=== PATIENT | male | born 1935 | race Caucasian/White ===

== ENCOUNTER → 2020-06-27 15:21 | Outpatient (BNVA) | payer MEDICARE, SELFPAY | PROVIDERS: PCP Internal Medicine; Visit Provider Urology | DX: C61 Malignant neoplasm of prostate (principal); Z79.899 Other long term (current) drug therapy | CPT/HCPCS: 96402; 99212; J9217 ==

== ENCOUNTER 2020-07-09 13:48 | Outpatient (REF) | payer MEDICARE, SELFPAY ==
--- NOTE | 2020-07-09 | XR_ITS ---
EXAMINATION: XR CHEST CLINICAL INFORMATION: Bronchitis. COMPARISON: Chest 11/10/2019 TECHNIQUE: 2 views of the chest were obtained. FINDINGS: The lungs are hyperinflated but clear of acute process. Heart size and pulmonary study is normal. There are pacer electrodes in right atrium and right ventricle. No gross bony abnormality seen. XR/XR chest 2V IMPRESSION: Hyperinflated lungs but clear. No change from 12/19/2019
[2020-07-09 16:20] LABS: MANUAL DIFF FLAG NO
[2020-07-09 16:23] LABS: Basophils Absolute Auto 0.1 X10*3/uL (0.0-0.2); Basophils Percent Auto 0.5 % (0-2); Eosinophils Absolute Auto 0.6 X10*3/uL (0.0-0.4); Eosinophils Percent Auto 5.2 % (0-4); Hematocrit 41.2 % (42-52); Hemoglobin 13.6 g/dl (14.0-18.0); Imm Gran Abs Auto 0.03 X10*3/uL (0.00-0.03); Imm Gran Pct Auto 0.3 % (0.0-0.4); Lymphocytes Absolute Auto 4.3 X10*3/uL (1.2-4.9); Lymphocytes Percent Auto 39.8 % (20-40); Mean Corpuscular Hemoglobin 30.5 pg (27.0-33.0); Mean Corpuscular Volume 92.4 fL (80-98); Mean Platelet Volume 9.4 fL (9.4-12.4); Monocytes Absolute Auto 0.9 X10*3/uL (0.1-1.2); Monocytes Percent Auto 8.2 % (2-11); Platelet Count 278 X10*3/uL (160-400); Red Blood Count 4.46 X10*6/uL (4.60-5.80); Red Cell Distribution Width 13.1 % (11.0-16.0); White Blood Count 10.8 X10*3/uL (4.8-10.8)
[2020-07-09 16:50] LABS: Alanine Aminotransferase 20 U/L (0-40); Albumin Level 3.9 g/dL (3.5-5.0); Alkaline Phosphatase 74 U/L (39-117); Anion Gap 10 (12-20); Aspartate Amino Transferase 21 U/L (5-37); Bilirubin Total 0.6 mg/dL (0.0-1.0); Blood Urea Nitrogen 27 mg/dL (9-16); C Reactive Protein 0.66 mg/dL (< or = 0.50); Carbon Dioxide 36 mmol/L (22-29); Chloride 99 mmol/L (96-108); Estimated Glomerular Filt Rate 60; Glucose Random 99 mg/dL (60-115); Potassium 3.9 mmol/l (3.3-5.1); Sodium 141 mmol/L (135-145); Total Protein 6.8 g/dL (6.5-8.0)
== END 2020-07-09 13:49 | disposition home or self-care (01) ==
LOC: HO.HMGCLDS 13:48
PROVIDERS: PCP Internal Medicine; Visit Provider Internal Medicine
DX: J40 Bronchitis, not specified as acute or chronic (principal)
CPT/HCPCS: 36415; 71046; 80053; 85025; 86140

== ENCOUNTER 2020-08-01 11:06 | Outpatient (REF) | payer MEDICARE, SELFPAY ==
--- NOTE | 2020-08-01 11:59 | XR_ITS ---
EXAMINATION: XR CHEST CLINICAL INFORMATION: Cough COMPARISON: July 09, 2020 and November 10, 2019 TECHNIQUE: 2 views of the chest were obtained. FINDINGS: No significant abnormality is noted involving the heart, lungs, mediastinum, bony thorax or soft tissues. Dual-chamber pacemaker in place. Minor atelectasis or scarring seen at both lung bases. XR/XR chest 2V IMPRESSION: No acute disease.
== END 2020-08-01 11:07 | disposition home or self-care (01) ==
LOC: HO.XRAY 11:06
PROVIDERS: PCP Internal Medicine; Visit Provider Internal Medicine
DX: J44.9 Chronic obstructive pulmonary disease, unspecified (principal); R05 Cough
CPT/HCPCS: 71046; 99202

== ENCOUNTER 2020-08-16 13:51 | Outpatient (REF) | payer MEDICARE, SELFPAY ==
--- NOTE | 2020-10-08 14:39 | PFT_ITS ---
This patient could only perform some effort for the spirometry. The patient was not able to continue any efforts to complete for lung volumes or diffusion capacity. The findings of spirometry indicate that FVC, FEV1, [id number] are all markedly decreased. These findings suggest severe obstructive airway disorder. Bronchodilator challenge was not carried out because the patient did not want to continue with the test. MD KAELA Weber/MAI / [phone]
== END 2020-08-16 13:52 | disposition home or self-care (01) ==
LOC: HO.RESP 13:51
PROVIDERS: Visit Provider Internal Medicine
DX: J44.9 Chronic obstructive pulmonary disease, unspecified (principal); R05 Cough
CPT/HCPCS: 99212

== ENCOUNTER → 2020-09-26 13:31 | Outpatient (BNVA) | payer MEDICARE, SELFPAY | PROVIDERS: PCP Internal Medicine; Visit Provider Internal Medicine | DX: J44.9 Chronic obstructive pulmonary disease, unspecified (principal) | CPT/HCPCS: 99212 ==

== ENCOUNTER → 2020-12-25 13:25 | Outpatient (BNVA) | payer MEDICARE, SELFPAY | PROVIDERS: PCP Internal Medicine; Visit Provider Urology | DX: C61 Malignant neoplasm of prostate (principal) | CPT/HCPCS: 96402; 99212; J9217 ==

== ENCOUNTER → 2021-01-23 13:34 | Outpatient (BNVA) | payer MEDICARE, SELFPAY | PROVIDERS: PCP Internal Medicine; Visit Provider Internal Medicine | DX: J44.9 Chronic obstructive pulmonary disease, unspecified (principal); R05 Cough | CPT/HCPCS: 99212 ==

== ENCOUNTER 2021-06-06 10:31 | Outpatient (REF) | payer MEDICARE, SELFPAY ==
--- NOTE | ~2021-06-06 | FL_ITS ---
EXAMINATION: FL BARIUM SWALLOW CLINICAL INFORMATION: Dysphagia COMPARISON: None TECHNIQUE: Fluoroscopic assessment of the esophagus was performed in various upright and prone obliquities utilizing thin and thick high density barium contrast material and effervescent granules. A 13 mm barium tablet was also utilized. FINDINGS: There is normal oral bolus control and transfer. Normal posterior tilt of the epiglottis with elevation of the hyoid. No cricopharyngeal abnormality. There is mild residue within the parapharyngeal sinuses noted. The esophagus was normal in course, caliber, and contour. There was normal distensibility with no fixed segment of narrowing. No focal mucosal abnormality was identified. The 13 mm barium tablet was swallowed without delay. This freely travel to the distal esophagus with mild delay in passage into the stomach. Moderate esophageal dysmotility was observed. There was delayed clearing of the esophagus, particularly with the patient lying down. Contrast passed freely across the gastroesophageal junction into the stomach. Small sliding hiatal hernia. No gastroesophageal reflux was observed. FLUOROSCOPY TIME: 2 minutes DOSE AREA PRODUCT: 7.392 Gy-cm2 (stoner-centimeter squared) FL/FL barium swallow IMPRESSION: Moderate esophageal dysmotility. Small sliding hiatal hernia.
== END 2021-06-06 10:32 | disposition home or self-care (01) ==
LOC: HO.XRAY 10:31
PROVIDERS: Visit Provider Internal Medicine
DX: R13.19 Other dysphagia (principal)
CPT/HCPCS: 74220

== ENCOUNTER 2021-06-07 09:44 | Emergency (ER) | payer MEDICARE, SELFPAY ==
--- NOTE | ~2021-06-07 | CT_ITS ---
EXAMINATION: CT ANGIOGRAM OF THE CHEST WITH AND WITHOUT CONTRAST (CT PULMONARY ANGIOGRAM FOR PE) CLINICAL INFORMATION: Reason for Exam Pleuritic CP. History of prostate CA COMPARISON: None TECHNIQUE: Prior to contrast administration, noncontrast localization images were obtained. Subsequently, multidetector volumetric imaging was performed from the thoracic inlet to below the diaphragms following the administration of 80 mL Omnipaque 350 intravenous contrast. No contrast reaction reported Sagittal, coronal, and MIP oblique sagittal reformatted images were obtained on the CT workstation, uploaded to PACS, and reviewed. This CT examination was performed using dose optimization techniques as appropriate, variously including the following: *Automated exposure control *Adjustment of mA and/or kV according to patient size (this includes techniques or standardized protocols for targeted exams where dose is matched to indication/reason for exam; i.e. extremities or head) *Use of iterative reconstruction technique Total exam dose-length product 323 mGy-cm FINDINGS: QUALITY OF STUDY/CONTRAST BOLUS: Satisfactory. PULMONARY ARTERIES: No central or segmental pulmonary emboli. THORACIC AORTA: No aneurysm or dissection. LUNG: Centrilobular emphysema seen. There is reticular nodular changes in the right lower lobe, right middle lobe and right upper lobe. The largest nodule in the right lower lobe measures 5 mm axial image 40/64. Minimal reticular interstitial thickening is seen in the lingula subpleural reticular thickening left lower lobe. There is patchy groundglass attenuation right lower lobe measuring measuring 1.7 cm on axial image 29/4 and 1.6 cm right lower lobe medially axial image 243/6, question atelectasis or pleural thickening.. There is mild bronchial wall thickening in bilateral upper lobes greater on the right side, lower lobes with mucous secretions in the right trachea axial image 192/6. PLEURA: No pleural effusion or pneumothorax. MEDIASTINUM: Central trachea and the bronchi widely patent. The heart size and the great vessels are normal caliber. No abnormal size mediastinal or hilar lymph nodes seen. There is no pericardial effusion. There are coronary artery calcifications present. No pericardial effusion seen. No evidence of septal bowing or right heart strain. There is a small hiatal hernia. CHEST WALL/AXILLA: No axillary or internal mammary lymphadenopathy. OSSEOUS STRUCTURES: No lytic or sclerotic process seen. There is mild ventral spondylosis. UPPER ABDOMEN: Visualized liver, spleen and pancreas unremarkable. The adrenal glands are symmetrical and normal. There are bilateral renal cysts. The gallbladder has been removed. No reflux of contrast into the hepatic veins to suggest elevated right heart pressures. CT/CT angio chest PE protocol IMPRESSION: No evidence of PE. No evidence aortic dissection. Peribronchial wall thickening, reticular nodular changes throughout both lungs and right lower lobe groundglass attenuation suggestive of small airway disease such as bronchitis or asthma. There is no pneumonic consolidation or pleural effusion seen. No abnormal mediastinal or hilar adenopathy seen. Coronary artery calcifications. VTE: Negative.
--- NOTE | ~2021-06-07 | XR_ITS ---
EXAMINATION: XR CHEST CLINICAL INFORMATION: Chest pain, cough. COMPARISON: Chest 08/01/2020 TECHNIQUE: Frontal view of the chest was obtained. FINDINGS: The lungs are well-expanded and clear of acute process. Heart size and pulmonary vascularity is normal. There are pacer electrodes in right atrium and right ventricle. No gross bony abnormality seen. XR/XR chest 1V IMPRESSION: Well-expanded lungs without acute pneumonic process.
[2021-06-07 09:52] VITALS: BP 145/89; PULSE 84; O2SAT 95
[2021-06-07 09:54] VITALS: BP 142/62; PULSE 65; RESP 19; TEMP 36.6; O2SAT 94; BMI 27.1
--- NOTE | 2021-06-07 09:56 | ECG_ITS ---
Test Reason : cp Blood Pressure : / mmHG Vent. Rate : 060 BPM Atrial Rate : 060 BPM P-R Int : 000 ms QRS Dur : 140 ms QT Int : 450 ms P-R-T Axes : 036 -66 -39 degrees QTc Int : 450 ms Ventricular-paced rhythm with frequent AV dual-paced complexes Abnormal ECG When compared with ECG of 10-NOV-2019 19:03, Premature ventricular complexes are no longer Present Vent. rate has decreased BY 3 BPM Referred By: Tanja Rodriguez Electronically Signed By:Hamlet Boone
[2021-06-07 10:19] LABS: MANUAL DIFF FLAG NO
[2021-06-07 10:22] LABS: Basophils Percent Auto 0.3 % (0-2); Eosinophils Absolute Auto 0.4 X10*3/uL (0.0-0.4); Hematocrit 38.2 % (42.0-52.0); Hemoglobin 12.8 g/dl (14.0-18.0); Imm Gran Abs Auto 0.02 X10*3/uL (0.00-0.03); Imm Gran Pct Auto 0.2 % (0.0-0.4); Lymphocytes Absolute Auto 3.4 X10*3/uL (1.2-4.9); Lymphocytes Percent Auto 36.4 % (20-40); Mean Corpuscular HGB Conc 33.5 g/dl (31.0-36.0); Mean Corpuscular Hemoglobin 30.1 pg (27.0-33.0); Mean Corpuscular Volume 89.9 fL (80.0-98.0); Mean Platelet Volume 8.9 fL (9.4-12.4); Monocytes Absolute Auto 0.8 X10*3/uL (0.1-1.2); Monocytes Percent Auto 8.2 % (2-11); Neutrophils Absolute Auto 4.7 x10*3/uL (2.0-8.3); Neutrophils Percent Auto 50.9 % (45-73); Platelet Count 208 X10*3/uL (160-400); Red Blood Count 4.25 X10*6/uL (4.60-5.80); Red Cell Distribution Width 13.2 % (11.0-16.0); White Blood Count 9.2 X10*3/uL (4.8-10.8)
[2021-06-07 10:40] LABS: Alanine Aminotransferase 26 U/L (0-40); Albumin Level 3.9 g/dL (3.5-5.0); Alkaline Phosphatase 68 U/L (39-117); Anion Gap 12 (12-20); Aspartate Amino Transferase 22 U/L (5-37); Bilirubin Direct 0.2 mg/dL (0.0-0.5); Bilirubin Total 0.5 mg/dL (0.0-1.0); Blood Urea Nitrogen 42 mg/dL (9-16); Calcium 9.4 mg/dL (8.4-10.2); Carbon Dioxide 28 mmol/L (22-29); Chloride 104 mmol/L (96-108); Creatinine Clr Calc Pharmacy 36.9; Estimated Glomerular Filt Rate 52; Glucose Random 143 mg/dL (60-115); Magnesium 2.1 mg/dL (1.6-2.6); Potassium 3.6 mmol/L (3.3-5.1); Sodium 140 mmol/L (135-145); Total Protein 6.7 g/dL (6.5-8.0)
--- NOTE | 2021-06-07 10:40 | ED_ITS ---
HPI - Chest Pain General Chief Complaint: Chest Pain <TOMER Soto - Last Filed: 06/07/21 14:54> Stated Complaint: CP <TOMER Soto - Last Filed: 06/07/21 14:54> Time Seen by Provider: 06/07/21 09:50 <TOMER Soto - Last Filed: 06/07/21 14:54> Source: patient and EMS <TOMER Soto - Last Filed: 06/07/21 14:54> Mode of arrival: EMS <TOMER Soto - Last Filed: 06/07/21 14:54> History of Present Illness HPI narrative: 85-year-old male with a past medical history of COPD, hypertension, hyperlipidemia, prostate CA, presenting to the ED c/o left-sided chest pain beginning this morning after waking worse with coughing & deep breathing. Denies fever, chills, SOB, abdominal pain, nausea/vomiting, pedal edema, recent travel <TOMER Soto - Last Filed: 06/07/21 14:54> MD complaint: chest pain <TOMER Soto - Last Filed: 06/07/21 14:54> Onset (ago): hour(s) <TOMER Soto Last Filed: 06/07/21 14:54> Related Data Home Medications: Home Medications Medication Instructions Recorded Confirmed fluoxetine 20 mg capsule 20 mg PO DAILY 06/27/20 06/28/20 metoprolol tartrate 25 mg tablet 25 mg PO BID 06/27/20 06/28/20 aspirin 81 mg tablet,delayed 81 mg PO DAILY 08/16/20 release betamethasone dipropionate 0.05 % appl TOPICAL BID 09/26/20 topical cream atorvastatin 40 mg tablet 40 mg PO DAILY tab 01/23/21 Previous Rx's Medication Instructions Recorded fluticasone furoate 200 1 inh INHALATION DAILY 30 Days #60 08/16/20 mcg-vilanterol 25 mcg/dose ea inhalation powder (Breo Ellipta) <TOMER Soto Last Filed: 06/07/21 14:54> Allergies/Adverse Reactions: Allergies Allergy/AdvReac Type Severity Reaction Status Date / Time No Known Drug Allergies Allergy Unknown NONE Verified 01/23/21 13:43 [NO KNOWN DRUG ALLERGIES] <TOMER Soto Last Filed: 06/07/21 14:54> Review of Systems Review of Systems: Constitutional: No Fever, No Chills,No Fatigue, No Malaise ENT/Mouth: No Ear Pain, No Nasal Congestion, No sore throat, No Rhinorrhea, No Swallowing Difficulty Eyes: No Eye Pain, No Discharge, No Vision Changes Cardiovascular: + Chest Pain, No SOB, No Edema, No Palpitations Respiratory: No Cough, No Sputum, No Dyspnea Gastrointestinal: No Nausea, No Vomiting, No Diarrhea, No Constipation, No Abdominal pain Genitourinary: No Dysuria, No Urinary Frequency, No Hematuria,No Flank Pain Musculoskeletal: No joint pain, No Myalgias, No Joint Swelling Skin: No Skin Lesions, No rash Neuro: No Weakness, No Dizziness, No Headache <TOMER Soto - Last Filed: 06/07/21 14:54> Yes all other systems are reviewed and are negative <TOMER Soto - Last Filed: 06/07/21 14:54> [facility] Past Medical History Attestation statement: The following information was validated with the patient. <TOMER Soto - Last Filed: 06/07/21 14:54> Medical History: Medical History COPD (chronic obstructive pulmonary disease) Cough Eczema Gallstones HTN (hypertension) Hyperlipidemia Kidney cysts Kidney stones Nocturia Prostate cancer Prostate cancer <TOMER Soto - Last Filed: 06/07/21 14:54> Surgical History: Surgical History History of prostatectomy <TOMER Soto - Last Filed: 06/07/21 14:54> Family History Family History: Family History Father No problems noted. Mother No problems noted. <TOMER Soto - Last Filed: 06/07/21 14:54> Social History Social History: Social History Years Smoked: 30 years <TOMER Soto Last Filed: 06/07/21 14:54> Physical Exam Vital Signs: Vital Signs: Last Vital Signs Temp 98 F 06/07/21 09:54 Pulse 66 06/07/21 15:39 Resp 18 06/07/21 15:39 BP 134/71 06/07/21 15:39 Pulse Ox 98 06/07/21 15:39 BMI result Body Mass Index 27.1 <Tanja Rodriguez PA - Last Filed: 06/07/21 14:54> Vital Signs: Last Vital Signs Temp 98 F 06/07/21 09:54 Pulse 66 06/07/21 15:39 Resp 18 06/07/21 15:39 BP 134/71 06/07/21 15:39 Pulse Ox 98 06/07/21 15:39 BMI result Body Mass Index 27.1 <Khoa Mosley MD - Last Filed: 06/27/21 07:04> Const: General: cooperative and healthy appearing <TOMER Soto - Last Filed: 06/07/21 14:54> Orientation/consciousness: patient oriented x3 <TOMER Soto - Last Filed: 06/07/21 14:54> Limitations: no limitations <Tanja Rodriguez PA - Last Filed: 06/07/21 14:54> HENMT: Head: Yes normal to inspection <Tanja Rodriguez PA - Last Filed: 06/07/21 14:54> Ears: hearing grossly normal bilaterally <Tanja Rodriguez PA - Last Filed: 06/07/21 14:54> General nose exam: Normal external nose present <Tanja Rodriguez PA - Last Filed: 06/07/21 14:54> Face and sinus: Yes normal facial exam <TOMER Soto - Last Filed: 06/07/21 14:54> Eyes: General: appearance normal, both eyes and all related structures <Tanja Rodriguez PA - Last Filed: 06/07/21 14:54> EOM: EOMs intact bilaterally <Tanja Rodriguez PA - Last Filed: 06/07/21 14:54> Neck: Neck: Yes normal visual inspection <TOMER Soto - Last Filed: 06/07/21 14:54> Resp: Effort & Inspection: normal respiratory effort <TOMER Soto - Last Filed: 06/07/21 14:54> Auscultation: clear to auscultation bilaterally, no rales, no rhonchi and no wheezes <Tanja Jennifer PA - Last Filed: 06/07/21 14:54> Cardio: Rate: regular rate <Tanja Menatg PA - Last Filed: 06/07/21 14:54> Heart sounds: S1 normal heart sound present and S2 normal heart sound present <Tanja Jennifer PA - Last Filed: 06/07/21 14:54> GI: Inspection: Yes normal to inspection <Tanja Jennifer PA - Last Filed: 06/07/21 14:54> Palpation (GI): Soft to palpation, nontender, no guarding and not rigid <Tanja Jennifer PA - Last Filed: 06/07/21 14:54> : General: Yes no CVA tenderness <Tanja Jennifer PA - Last Filed: 06/07/21 14:54> Back/Spine/Pelvis: Back: no CVA tenderness <Tanja Jennifer PA - Last Filed: 06/07/21 14:54> Skin: Rashes: no rashes <Tanja Jennifer PA - Last Filed: 06/07/21 14:54> Wounds: no wounds <Tanja Jennifer PA - Last Filed: 06/07/21 14:54> Neuro: General: patient oriented x3 <Tanja Jennifer PA - Last Filed: 06/07/21 14:54> Gait exam (Neuro): Normal gait present <Tanja Jennifer PA - Last Filed: 06/07/21 14:54> Extrem: General: Yes normal to inspection <Tanja Jennfier PA - Last Filed: 06/07/21 14:54> Course Course Course Narrative: XR chest 1V IMPRESSION: Well-expanded lungs without acute pneumonic process. 1114--no leukocytosis. BUN acute on chronically elevated. Initial troponin 6.8 > will obtain 3 hour repeat -COVID-19 negative 1231--CT angio chest PE protocol IMPRESSION: No evidence of PE. No evidence aortic dissection. ? Peribronchial wall thickening, reticular nodular changes throughout both lungs and right lower lobe groundglass attenuation suggestive of small airway disease such as bronchitis or asthma. There is no pneumonic consolidation or pleural effusion seen. No abnormal mediastinal or hilar adenopathy seen. ? Coronary artery calcifications. ? VTE: Negative. -1453--repeat troponin 7.4, NV unlikely. Patient reports symptomatic improvement. Results discussed including needed PCP follow-up. Worrisome signs and symptoms discussed including strict return precautions, patient verbalized understanding feel safe for discharge home <TOMER Soto - Last Filed: 06/07/21 14:54> MDM - Chest Pain MDM Narrative Medical decision making narrative: 85-year-old male with a past medical history of COPD, hypertension, hyperl ipidemia, prostate CA, presenting to the ED c/o left-sided chest pain beginning this morning after waking worse with coughing & deep breathing. On exam vital signs stable, NAD/nontoxic, lungs CTA, chest pain not reproducible, no pedal edema. Concern for ACS vs PE with patient's history of prostate CA. Rule out pneumonia Plan: EKG, labs, CXR, COVID-19 testing, re-evaluated <TOMER Soto - Last Filed: 06/07/21 14:54> Medical Records Data Attestation: I reviewed the patient's medical records. <TOMER Soto - Last Filed: 06/07/21 14:54> Lab Data Attestation: I reviewed the patient's lab results. <TOMER Soto - Last Filed: 06/07/21 14:54> Result diagrams: : 06/07/21 10:14 06/07/21 10:13 <TOMER Soto - Last Filed: 06/07/21 14:54> Labs: Lab Results 06/07/21 06/07/21 06/07/21 Range/Units 10:13 10:13 10:13 WBC (4.8-10.8) X10*3/uL RBC (4.60-5.80) X10*6/uL Hgb (14.0-18.0) g/dl Hct (42.0-52.0) % MCV (80.0-98.0) fL MCH (27.0-33.0) pg MCHC (31.0-36.0) g/dl RDW (11.0-16.0) % Plt Count (160-400) X10*3/uL MPV (9.4-12.4) fL Immature Gran % (Auto) (0.0-0.4) % Neut % (Auto) (45-73) % Lymph % (Auto) (20-40) % [place] % (Auto) (2-11) % Eos % (Auto) (0-4) % Baso % (Auto) (0-2) % Lymph # (Auto) (1.2-4.9) X10*3/uL [place] # (Auto) (0.1-1.2) X10*3/uL Eos # (Auto) (0.0-0.4) X10*3/uL Baso # (Auto) (0.0-0.2) X10*3/uL Abs Immat Gran (auto) (0.00-0.03) X10*3/uL Absolute Neuts (auto) (2.0-8.3) x10*3/uL Absolute Nucleated RBC (0.0-0.012) X10*3/uL Nucleated RBC % (auto) (0.0-0.2) /100WBC Sodium 140 (135-145) mmol/L Potassium 3.6 (3.3-5.1) mmol/L Chloride 104 (96-108) mmol/L Carbon Dioxide 28 (22-29) mmol/L Anion Gap 12 (12-20) BUN 42 H (9-16) mg/dL Creatinine 1.32 (0.5-1.4) mg/dL Estim Creat Clear Calc 36.9 Estimated GFR 52 Random Glucose 143 H D (60-115) mg/dL Calcium 9.4 (8.4-10.2) mg/dL Magnesium 2.1 (1.6-2.6) mg/dL Total Bilirubin 0.5 (0.0-1.0) mg/dL Direct Bilirubin 0.2 (0.0-0.5) mg/dL AST 22 (5-37) U/L ALT 26 (0-40) U/L Alkaline Phosphatase 68 (39-117) U/L Troponin I High Sens 6.8 (<3.5-35.0) ng/L B-Natriuretic Peptide 64 (<100) pg/mL Total Protein 6.7 (6.5-8.0) g/dL Albumin 3.9 (3.5-5.0) g/dL COVID-19 (NASIM) Negative (Negative) COVID-19 Clin Com See Note 06/07/21 06/07/21 Range/Units 10:14 14:01 WBC 9.2 (4.8-10.8) X10*3/uL RBC 4.25 L (4.60-5.80) X10*6/uL Hgb 12.8 L (14.0-18.0) g/dl Hct 38.2 L (42.0-52.0) % MCV 89.9 (80.0-98.0) fL MCH 30.1 (27.0-33.0) pg MCHC 33.5 (31.0-36.0) g/dl RDW 13.2 (11.0-16.0) % Plt Count 208 (160-400) X10*3/uL MPV 8.9 L (9.4-12.4) fL Immature Gran % (Auto) 0.2 (0.0-0.4) % Neut % (Auto) 50.9 (45-73) % Lymph % (Auto) 36.4 (20-40) % [place] % (Auto) 8.2 (2-11) % Eos % (Auto) 4.0 (0-4) % Baso % (Auto) 0.3 (0-2) % Lymph # (Auto) 3.4 (1.2-4.9) X10*3/uL [place] # (Auto) 0.8 (0.1-1.2) X10*3/uL Eos # (Auto) 0.4 (0.0-0.4) X10*3/uL Baso # (Auto) 0.0 (0.0-0.2) X10*3/uL Abs Immat Gran (auto) 0.02 (0.00-0.03) X10*3/uL Absolute Neuts (auto) 4.7 (2.0-8.3) x10*3/uL Absolute Nucleated RBC 0.000 (0.0-0.012) X10*3/uL Nucleated RBC % (auto) 0.0 (0.0-0.2) /100WBC Sodium (135-145) mmol/L Potassium (3.3-5.1) mmol/L Chloride (96-108) mmol/L Carbon Dioxide (22-29) mmol/L Anion Gap (12-20) BUN (9-16) mg/dL Creatinine (0.5-1.4) mg/dL Estim Creat Clear Calc Estimated GFR Random Glucose (60-115) mg/dL Calcium (8.4-10.2) mg/dL Magnesium (1.6-2.6) mg/dL Total Bilirubin (0.0-1.0) mg/dL Direct Bilirubin (0.0-0.5) mg/dL AST (5-37) U/L ALT (0-40) U/L Alkaline Phosphatase (39-117) U/L Troponin I High Sens 7.4 (<3.5-35.0) ng/L B-Natriuretic Peptide (<100) pg/mL Total Protein (6.5-8.0) g/dL Albumin (3.5-5.0) g/dL COVID-19 (NASIM) (Negative) COVID-19 Clin Com <TOMER Soto - Last Filed: 06/07/21 14:54> Lab Results 06/07/21 06/07/21 06/07/21 Range/Units 10:13 10:13 10:13 WBC (4.8-10.8) X10*3/uL RBC (4.60-5.80) X10*6/uL Hgb (14.0-18.0) g/dl Hct (42.0-52.0) % MCV (80.0-98.0) fL MCH (27.0-33.0) pg MCHC (31.0-36.0) g/dl RDW (11.0-16.0) % Plt Count (160-400) X10*3/uL MPV (9.4-12.4) fL Immature Gran % (Auto) (0.0-0.4) % Neut % (Auto) (45-73) % Lymph % (Auto) (20-40) % [place] % (Auto) (2-11) % Eos % (Auto) (0-4) % Baso % (Auto) (0-2) % Lymph # (Auto) (1.2-4.9) X10*3/uL [place] # (Auto) (0.1-1.2) X10*3/uL Eos # (Auto) (0.0-0.4) X10*3/uL Baso # (Auto) (0.0-0.2) X10*3/uL Abs Immat Gran (auto) (0.00-0.03) X10*3/uL Absolute Neuts (auto) (2.0-8.3) x10*3/uL Absolute Nucleated RBC (0.0-0.012) X10*3/uL Nucleated RBC % (auto) (0.0-0.2) /100WBC Sodium 140 (135-145) mmol/L Potassium 3.6 (3.3-5.1) mmol/L Chloride 104 (96-108) mmol/L Carbon Dioxide 28 (22-29) mmol/L Anion Gap 12 (12-20) BUN 42 H (9-16) mg/dL Creatinine 1.32 (0.5-1.4) mg/dL Estim Creat Clear Calc 36.9 Estimated GFR 52 Random Glucose 143 H D (60-115) mg/dL Calcium 9.4 (8.4-10.2) mg/dL Magnesium 2.1 (1.6-2.6) mg/dL Total Bilirubin 0.5 (0.0-1.0) mg/dL Direct Bilirubin 0.2 (0.0-0.5) mg/dL AST 22 (5-37) U/L ALT 26 (0-40) U/L Alkaline Phosphatase 68 (39-117) U/L Troponin I High Sens 6.8 (<3.5-35.0) ng/L B-Natriuretic Peptide 64 (<100) pg/mL Total Protein 6.7 (6.5-8.0) g/dL Albumin 3.9 (3.5-5.0) g/dL COVID-19 (NASIM) Negative (Negative) COVID-19 Clin Com See Note 06/07/21 06/07/21 Range/Units 10:14 14:01 WBC 9.2 (4.8-10.8) X10*3/uL RBC 4.25 L (4.60-5.80) X10*6/uL Hgb 12.8 L (14.0-18.0) g/dl Hct 38.2 L (42.0-52.0) % MCV 89.9 (80.0-98.0) fL MCH 30.1 (27.0-33.0) pg MCHC 33.5 (31.0-36.0) g/dl RDW 13.2 (11.0-16.0) % Plt Count 208 (160-400) X10*3/uL MPV 8.9 L (9.4-12.4) fL Immature Gran % (Auto) 0.2 (0.0-0.4) % Neut % (Auto) 50.9 (45-73) % Lymph % (Auto) 36.4 (20-40) % [place] % (Auto) 8.2 (2-11) % Eos % (Auto) 4.0 (0-4) % Baso % (Auto) 0.3 (0-2) % Lymph # (Auto) 3.4 (1.2-4.9) X10*3/uL [place] # (Auto) 0.8 (0.1-1.2) X10*3/uL Eos # (Auto) 0.4 (0.0-0.4) X10*3/uL Baso # (Auto) 0.0 (0.0-0.2) X10*3/uL Abs Immat Gran (auto) 0.02 (0.00-0.03) X10*3/uL Absolute Neuts (auto) 4.7 (2.0-8.3) x10*3/uL Absolute Nucleated RBC 0.000 (0.0-0.012) X10*3/uL Nucleated RBC % (auto) 0.0 (0.0-0.2) /100WBC Sodium (135-145) mmol/L Potassium (3.3-5.1) mmol/L Chloride (96-108) mmol/L Carbon Dioxide (22-29) mmol/L Anion Gap (12-20) BUN (9-16) mg/dL Creatinine (0.5-1.4) mg/dL Estim Creat Clear Calc Estimated GFR Random Glucose (60-115) mg/dL Calcium (8.4-10.2) mg/dL Magnesium (1.6-2.6) mg/dL Total Bilirubin (0.0-1.0) mg/dL Direct Bilirubin (0.0-0.5) mg/dL AST (5-37) U/L ALT (0-40) U/L Alkaline Phosphatase (39-117) U/L Troponin I High Sens 7.4 (<3.5-35.0) ng/L B-Natriuretic Peptide (<100) pg/mL Total Protein (6.5-8.0) g/dL Albumin (3.5-5.0) g/dL COVID-19 (NASIM) (Negative) COVID-19 Clin Com <Khoa Mosley MD - Last Filed: 06/27/21 07:04> ECG Data ECG #1: Attestation: I personally reviewed and interpreted this ECG as follows: <TOMER Soto - Last Filed: 06/07/21 14:54> ECG interpretation date: 06/07/21 <TOMER Soto - Last Filed: 06/07/21 14:54> ECG interpretation time: 10:32 <TOMER Soto - Last Filed: 06/07/21 14:54> Interpretation: EKG ventricular paced at a rate of 60. QTC 450. No STEMI. RBBB p attern <TOMER Soto - Last Filed: 06/07/21 14:54> Discharge Plan Discharge Clinical Impression: Chest pain <TOMER Soto - Last Filed: 06/07/21 14:54> Patient Disposition: Home, Self-Care <TOMER Soto - Last Filed: 06/07/21 14:54> Instructions: Chest Pain (ED) <TOMER Soto - Last Filed: 06/07/21 14:54> Additional Instructions: your blood work, chest x-ray and CT were reassuring today in the ED Your CT does show small airway disease such as bronchitis Please follow up with your doctor Continue all home prescribed medication if your symptoms persist, worsen, or you develop fever, swelling in your legs or shortness of breath please return to the ED <TOMER Soto - Last Filed: 06/07/21 14:54> Prescriptions: No Action betamethasone dipropionate 0.05 % cream topical BID RF: 0 fluoxetine 20 mg capsule 20 mg PO DAILY RF: 0 metoprolol tartrate 25 mg tablet 25 mg PO BID RF: 0 atorvastatin 40 mg tablet 40 mg PO DAILY RF: 0 aspirin 81 mg tablet,delayed release (DR/EC) 81 mg PO DAILY RF: 0 Breo Ellipta 200-25 mcg/dose blister with device 1 inh inhalation DAILY 30 Days Qty: 60 RF: 3 <TOMER Soto - Last Filed: 06/07/21 14:54> Referrals: Jose Milner MD, DO [Primary Care Provider] - 2 days <TOMER Soto - Last Filed: 06/07/21 14:54> Interventions: ED Discharge Assessment Last Done: 06/07/21 15:39 <TOMER Soto - Last Filed: 06/07/21 14:54> Discharge Date/Time: 06/07/21 16:27 <TOMER Soto - Last Filed: 06/07/21 14:54>
[2021-06-07 10:48] LABS: B Type Natriuretic Peptide 64 pg/mL (<100); COVID-19 Test Negative (Negative); IDNOW Serial# 9DD0AD1C; Troponin-I High Sensitivity 6.8 ng/L (<3.5-35.0)
[2021-06-07 11:07] VITALS: BP 140/68; PULSE 61; RESP 16; O2SAT 93
--- NOTE | 2021-06-07 11:07 | PC.NURSE ---
paced on monitor, nad, still has pain w deep breath and cough
[2021-06-07] MEDS: iohexoL 350 MG/ML 100 ML INFUS..BTL 75 ML IV (11:58)
[2021-06-07 12:10] VITALS: BP 140/67; PULSE 64; RESP 17; O2SAT 96
[2021-06-07] MEDS: 0.9 % Sodium Chloride 1,000 ML 999 ML IVCONT (12:10)
[2021-06-07] MEDS: Albuterol/Iprat 2.5/0.5MG 3 ML AMPUL.NEB INHALE (12:43)
[2021-06-07 12:44] VITALS: PULSE 62; RESP 16; O2SAT 97
[2021-06-07 14:27] LABS: Troponin-I High Sensitivity 7.4 ng/L (<3.5-35.0)
[2021-06-07 15:39] VITALS: BP 134/71; PULSE 66; RESP 18; O2SAT 98
== END 2021-06-07 16:27 | disposition home or self-care (01) ==
PROVIDERS: Physician Assistant; Emergency Provider Emergency Medicine; PCP Internal Medicine
DX: R07.9 Chest pain, unspecified (principal); J44.9 Chronic obstructive pulmonary disease, unspecified; I10 Essential (primary) hypertension; E78.5 Hyperlipidemia, unspecified; R06.02 Shortness of breath; Z20.822 Contact with and (suspected) exposure to COVID-19; Z79.899 Other long term (current) drug therapy
CPT/HCPCS: 36415; 71045; 71275; 80048; 80076; 83735; 83880; 84484; 85025; 87635; 93005; 94640; 96360; 99284; Q9967

== ENCOUNTER → 2021-06-18 14:35 | Outpatient (BNVA) | payer MEDICARE, SELFPAY | PROVIDERS: PCP Internal Medicine; Visit Provider Urology | DX: C61 Malignant neoplasm of prostate (principal) | CPT/HCPCS: 99212 ==

== ENCOUNTER → 2021-07-24 13:26 | Outpatient (BNVA) | payer MEDICARE, SELFPAY | PROVIDERS: PCP Internal Medicine; Visit Provider Internal Medicine | DX: J44.9 Chronic obstructive pulmonary disease, unspecified (principal) | CPT/HCPCS: 99212 ==

== ENCOUNTER 2021-09-25 13:47 | Outpatient (REF) | payer MEDICARE, SELFPAY ==
[2021-09-25 16:47] LABS: MANUAL DIFF FLAG NO
[2021-09-25 16:54] LABS: Basophils Percent Auto 0.2 % (0-2); Eosinophils Absolute Auto 0.4 X10*3/uL (0.0-0.4); Eosinophils Percent Auto 2.3 % (0-4); Hematocrit 39.4 % (42.0-52.0); Hemoglobin 12.9 g/dl (14.0-18.0); Imm Gran Pct Auto 0.6 % (0.0-0.4); Lymphocytes Absolute Auto 4.7 X10*3/uL (1.2-4.9); Mean Corpuscular HGB Conc 32.7 g/dl (31.0-36.0); Mean Corpuscular Hemoglobin 29.9 pg (27.0-33.0); Mean Corpuscular Volume 91.4 fL (80.0-98.0); Mean Platelet Volume 9.3 fL (9.4-12.4); Monocytes Percent Auto 6.4 % (2-11); Neutrophils Absolute Auto 9.5 x10*3/uL (2.0-8.3); Neutrophils Percent Auto 60.5 % (45-73); Platelet Count 336 X10*3/uL (160-400); Red Blood Count 4.31 X10*6/uL (4.60-5.80); Red Cell Distribution Width 13.2 % (11.0-16.0); White Blood Count 15.7 X10*3/uL (4.8-10.8)
[2021-09-25 17:01] LABS: Alanine Aminotransferase 17 U/L (0-40); Albumin Level 3.7 g/dL (3.5-5.0); Alkaline Phosphatase 81 U/L (39-117); Anion Gap 14 (12-20); Aspartate Amino Transferase 14 U/L (5-37); Bilirubin Total 0.6 mg/dL (0.0-1.0); Blood Urea Nitrogen 26 mg/dL (9-16); Calcium 9.2 mg/dL (8.4-10.2); Carbon Dioxide 28 mmol/L (22-29); Chloride 98 mmol/L (96-108); Estimated Glomerular Filt Rate 45; Glucose Random 155 mg/dL (60-115); Potassium 4.3 mmol/L (3.3-5.1); Sodium 136 mmol/L (135-145); Total Protein 6.9 g/dL (6.5-8.0)
== END 2021-09-25 13:48 | disposition home or self-care (01) ==
LOC: HO.HMGCLDS 13:47
PROVIDERS: PCP Internal Medicine; Visit Provider Internal Medicine
DX: R42 Dizziness and giddiness (principal)
CPT/HCPCS: 36415; 80053; 85025

== ENCOUNTER 2021-10-23 09:10 | Outpatient (REF) | payer MEDICARE, SELFPAY ==
[2021-10-23 09:38] LABS: MANUAL DIFF FLAG NO
[2021-10-23 10:06] LABS: Basophils Absolute Auto 0.1 X10*3/uL (0.0-0.2); Basophils Percent Auto 0.5 % (0-2); Eosinophils Absolute Auto 0.4 X10*3/uL (0.0-0.4); Eosinophils Percent Auto 3.3 % (0-4); Hematocrit 37.6 % (42.0-52.0); Hemoglobin 12.2 g/dl (14.0-18.0); Imm Gran Abs Auto 0.02 X10*3/uL (0.00-0.03); Imm Gran Pct Auto 0.2 % (0.0-0.4); Lymphocytes Absolute Auto 3.3 X10*3/uL (1.2-4.9); Lymphocytes Percent Auto 31.1 % (20-40); Mean Corpuscular HGB Conc 32.4 g/dl (31.0-36.0); Mean Corpuscular Hemoglobin 29.1 pg (27.0-33.0); Mean Corpuscular Volume 89.7 fL (80.0-98.0); Mean Platelet Volume 8.8 fL (9.4-12.4); Monocytes Absolute Auto 0.8 X10*3/uL (0.1-1.2); Monocytes Percent Auto 7.4 % (2-11); Neutrophils Absolute Auto 6.1 x10*3/uL (2.0-8.3); Neutrophils Percent Auto 57.5 % (45-73); Platelet Count 283 X10*3/uL (160-400); Red Blood Count 4.19 X10*6/uL (4.60-5.80); Red Cell Distribution Width 14.1 % (11.0-16.0); White Blood Count 10.5 X10*3/uL (4.8-10.8)
[2021-10-23 10:32] LABS: Alanine Aminotransferase 20 U/L (0-40); Albumin Level 3.8 g/dL (3.5-5.0); Alkaline Phosphatase 72 U/L (39-117); Anion Gap 9 (12-20); Aspartate Amino Transferase 20 U/L (5-37); Bilirubin Total 0.5 mg/dL (0.0-1.0); Blood Urea Nitrogen 24 mg/dL (9-16); Calcium 9.6 mg/dL (8.4-10.2); Carbon Dioxide 26 mmol/L (22-29); Chloride 106 mmol/L (96-108); Estimated Glomerular Filt Rate 60; Glucose Fasting 132 mg/dL (60-99); Potassium 4.6 mmol/L (3.3-5.1); Sodium 136 mmol/L (135-145); Total Protein 6.8 g/dL (6.5-8.0)
[2021-10-23 10:43] LABS: Prostate Specific Antigen 0.05 ng/mL (<0.05-4.0)
== END 2021-10-23 09:11 | disposition home or self-care (01) ==
LOC: HO.LAB 09:10
PROVIDERS: Absent Provider Internal Medicine; PCP Internal Medicine; Visit Provider Urology
DX: C61 Malignant neoplasm of prostate (principal); E78.00 Pure hypercholesterolemia, unspecified; I10 Essential (primary) hypertension; J41.1 Mucopurulent chronic bronchitis; Z12.5 Encounter for screening for malignant neoplasm of prostate
CPT/HCPCS: 36415; 80053; 84153; 85025

== ENCOUNTER → 2021-12-27 11:23 | Outpatient (BNVA) | payer MEDICARE, SELFPAY | PROVIDERS: PCP Internal Medicine; Visit Provider Urology | DX: C61 Malignant neoplasm of prostate (principal) | CPT/HCPCS: Q3014 ==

== ENCOUNTER → 2022-01-21 13:24 | Outpatient (BNVA) | payer MEDICARE, SELFPAY | PROVIDERS: PCP Internal Medicine; Visit Provider Internal Medicine | DX: J44.9 Chronic obstructive pulmonary disease, unspecified (principal); Z79.899 Other long term (current) drug therapy | CPT/HCPCS: 94010; 99212 ==

== ENCOUNTER 2022-02-11 16:45 | Emergency (ER) | payer MEDICARE, SELFPAY ==
[2022-02-11 18:19] VITALS: BP 181/71; PULSE 66; RESP 18; TEMP 36.3; O2SAT 94; BMI 27.9
--- NOTE | 2022-02-11 20:39 | ED.SKABFB ---
HPI - Skin/Abscess/Foreign Bdy General Chief complaint: Skin/Abscess/Foreign Body Stated complaint: skin tear Time Seen by Provider: 02/11/22 20:39 Source: patient Mode of arrival: ambulatory Limitations: no limitations History of Present Illness HPI narrative: 86 yo male with history of COPD, prostate cancer complaint: laceration Onset (ago): hour(s) Tetanus up to date: unsure Location: R hand Severity: mild Severity scale (1-10): 3 Quality: aching Pain Consistency: intermittent Relieving factors: none Exacerbating factors: palpation Context: none Associated symptoms: denies other symptoms Treatments prior to arrival: bandages Related Data Home Medications Medication Instructions Recorded Confirmed fluoxetine 20 mg capsule 20 mg PO DAILY 06/27/20 07/24/21 aspirin 81 mg tablet,delayed 81 mg PO DAILY 08/16/20 07/24/21 release betamethasone dipropionate 0.05 % appl topical BID 09/26/20 07/24/21 topical cream atorvastatin 40 mg tablet 40 mg PO DAILY 01/23/21 07/24/21 Previous Rx's Medication Instructions Recorded Breo Ellipta 200 mcg-25 mcg/dose 1 ea inhalation DAILY #60 ea 02/03/22 powder for inhalation (fluticasone furoate-vilanterol) Allergies Allergy/AdvReac Type Severity Reaction Status Date / Time No Known Drug Allergies Allergy Unknown NONE Verified 02/11/22 18:19 [NO KNOWN DRUG ALLERGIES] Review of Systems Review of Systems: Constitutional: No Fever, No Chills Cardiovascular: No Chest Pain, No SOB Respiratory: No Cough, No Sputum Gastrointestinal: No Nausea, No Vomiting Musculoskeletal: No joint pain, No Myalgias Skin: +Skin Lesions, No rash Neuro: No Weakness, No Numbness Heme/Lymph: + Bruising PMFSH Past Medical History Medical History COPD (chronic obstructive pulmonary disease) Cough Eczema Gallstones HTN (hypertension) Hyperlipidemia Kidney cysts Kidney stones Nocturia Prostate cancer Prostate cancer Surgical History History of prostatectomy Family History Family History Father No problems noted. Mother No problems noted. Social History Social History Patient Tobacco Use Status: Former Tobacco user Years Smoked: 30 years Advance Directives: No Advance Directives Information Provided: No Physical Exam Vital Signs: Vital Signs: Last Vital Signs Temp 97.4 F 02/11/22 18:19 Pulse 66 02/11/22 18:19 Resp 18 02/11/22 18:19 BP 181/71 H 02/11/22 18:19 Pulse Ox 94 02/11/22 18:19 O2 Del Method 02/11/22 18:19 BMI result Body Mass Index 27.9 Appearance: Alert. Oriented X3. No acute distress. HEENT: normal inspection CVS: Normal heart rate and rhythm. Pulses normal. Respiratory: No respiratory distress. Skin: Skin warm and dry. Normal skin color. Normal skin turgor. No rashes. Extremities: Dorsal aspect of the right hand with superficial ecchymosis from the base of the thumb to around the 4th MCP with a small 2 cm skin tear near the thenar eminence, no active bleeding. No joint tenderness. Normal range of motion of all digits. Neurovascularly intact distally. Irregularly shaped flap centrally that was excised and trimmed. Neuro: Oriented X 3. No motor deficit. No sensory deficit. Course Course Course Narrative: 86-year-old male S the ER for evaluation of a skin tear on the dorsal aspect of his right hand. The area small, nonbleeding. There is a thin, small piece of skin centrally that is detached and was trimmed and excised. The wound was cleaned and dressed with bacitracin, nonstick dressing and gauze. He was given tetanus shot today. He will follow up with primary care doctor. Wound care was discussed with patient and the . Stable for discharge home. Critical Care Time Critical Care Time Critical Care Time: No Discharge Plan Discharge Clinical Impression: Skin tear of hand without complication Patient Disposition: Home, Self-Care Instructions: Skin Tear (ED) Additional Instructions: Keep wound clean and covered. Recommend bacitracin or Neosporin 1-2 times per day. Change the dressing 1-2 times per day Up with her primary care doctor. If you develop new or worsening symptoms call 911 or come back to the ER for further evaluation. Prescriptions: No Action Breo Ellipta 200-25 mcg/dose blister with device 1 ea inhalation DAILY Qty: 60 3RF betamethasone dipropionate 0.05 % cream topical BID fluoxetine 20 mg capsule 20 mg PO DAILY atorvastatin 40 mg tablet 40 mg PO DAILY aspirin 81 mg tablet,delayed release (DR/EC) 81 mg PO DAILY
[2022-02-11] MEDS: Diphth,Pertus(ACell),Tet Adult 0.5 ML SYRINGE IM (21:03)
== END 2022-02-11 21:43 | disposition home or self-care (01) ==
PROVIDERS: Emergency Provider Internal Medicine; PCP Internal Medicine
DX: S61.411A Laceration without foreign body of right hand, initial encounter (principal); S60.511A Abrasion of right hand, initial encounter; X58.XXXA Exposure to other specified factors, initial encounter; Y93.9 Activity, unspecified; Y92.9 Unspecified place or not applicable; Y99.9 Unspecified external cause status; Z79.899 Other long term (current) drug therapy; Z87.891 Personal history of nicotine dependence
CPT/HCPCS: 90471; 90715; 99282; 99284

== ENCOUNTER → 2022-07-03 15:04 | Outpatient (BNVA) | payer MEDICARE, SELFPAY | PROVIDERS: PCP Internal Medicine; Visit Provider Urology | DX: C61 Malignant neoplasm of prostate (principal) | CPT/HCPCS: Q3014 ==

== ENCOUNTER 2023-05-25 12:39 | Outpatient (REF) | payer MEDICARE, SELFPAY ==
--- NOTE | ~2023-05-25 | XR_ITS ---
EXAMINATION: XR CHEST CLINICAL INFORMATION: Chronic bronchitis COMPARISON: 06/07/2021 TECHNIQUE: 2 views of the chest were obtained. FINDINGS: There is a stable position of left-sided pacemaker battery and leads. Lungs are mildly hyperinflated with blunting of the right costophrenic angle but no evidence of consolidations or nodules. Cardiomediastinal silhouette is normal. XR/XR chest 2V IMPRESSION: Mild changes of emphysema. No evidence of pneumonia. Trace of pleural effusion on the right
[2023-05-25 16:20] LABS: MANUAL DIFF FLAG NO
[2023-05-25 16:24] LABS: Basophils Absolute Auto 0.1 X10*3/uL (0.0-0.2); Basophils Percent Auto 0.7 % (0-2); Eosinophils Absolute Auto 0.5 X10*3/uL (0.0-0.4); Eosinophils Percent Auto 4.1 % (0-4); Hematocrit 38.3 % (42.0-52.0); Hemoglobin 12.6 g/dl (14.0-18.0); Imm Gran Abs Auto 0.09 X10*3/uL (0.00-0.03); Imm Gran Pct Auto 0.8 % (0.0-0.4); Lymphocytes Absolute Auto 4.5 X10*3/uL (1.2-4.9); Lymphocytes Percent Auto 38.1 % (20-40); Mean Corpuscular HGB Conc 32.9 g/dl (31.0-36.0); Mean Corpuscular Hemoglobin 30.1 pg (27.0-33.0); Mean Corpuscular Volume 91.4 fL (80.0-98.0); Mean Platelet Volume 9.1 fL (9.4-12.4); Monocytes Absolute Auto 0.7 X10*3/uL (0.1-1.2); Monocytes Percent Auto 6.1 % (2-11); Neutrophils Percent Auto 50.2 % (45-73); Platelet Count 420 X10*3/uL (160-400); Red Blood Count 4.19 X10*6/uL (4.60-5.80); Red Cell Distribution Width 13.2 % (11.0-16.0); White Blood Count 11.9 X10*3/uL (4.8-10.8)
[2023-05-25 16:42] LABS: Alanine Aminotransferase 17 U/L (0-40); Albumin Level 3.9 g/dL (3.5-5.0); Alkaline Phosphatase 61 U/L (39-117); Anion Gap 14 (12-20); Aspartate Amino Transferase 20 U/L (5-37); Bilirubin Direct 0.2 mg/dL (0.0-0.5); Bilirubin Total 0.4 mg/dL (0.0-1.0); Blood Urea Nitrogen 32 mg/dL (9-16); C Reactive Protein 0.44 mg/dL (< or = 0.50); Calcium 9.5 mg/dL (8.4-10.2); Carbon Dioxide 24 mmol/L (22-29); Chloride 104 mmol/L (96-108); Estimated Glomerular Filt Rate 46; Glucose Random 185 mg/dL (60-115); Potassium 4.1 mmol/L (3.3-5.1); Sodium 138 mmol/L (135-145); Total Protein 7.3 g/dL (6.5-8.0)
== END 2023-05-25 12:40 | disposition home or self-care (01) ==
LOC: HO.HMGCX 12:39
PROVIDERS: PCP Internal Medicine; Visit Provider Internal Medicine
DX: J41.1 Mucopurulent chronic bronchitis (principal)
CPT/HCPCS: 36415; 71046; 80048; 80076; 85025; 86140

== ENCOUNTER 2023-06-11 09:42 | Outpatient (REF) | payer MEDICARE, SELFPAY ==
[2023-06-11 13:13] LABS: MANUAL DIFF FLAG NO
[2023-06-11 13:23] LABS: Basophils Absolute Auto 0.1 X10*3/uL (0.0-0.2); Basophils Percent Auto 0.6 % (0-2); Eosinophils Absolute Auto 0.4 X10*3/uL (0.0-0.4); Eosinophils Percent Auto 4.8 % (0-4); Hematocrit 37.8 % (42.0-52.0); Hemoglobin 12.3 g/dl (14.0-18.0); Imm Gran Abs Auto 0.01 X10*3/uL (0.00-0.03); Imm Gran Pct Auto 0.1 % (0.0-0.4); Lymphocytes Absolute Auto 3.2 X10*3/uL (1.2-4.9); Lymphocytes Percent Auto 38.7 % (20-40); Mean Corpuscular HGB Conc 32.5 g/dl (31.0-36.0); Mean Corpuscular Hemoglobin 29.9 pg (27.0-33.0); Mean Platelet Volume 9.4 fL (9.4-12.4); Monocytes Absolute Auto 0.6 X10*3/uL (0.1-1.2); Monocytes Percent Auto 7.5 % (2-11); Neutrophils Percent Auto 48.3 % (45-73); Platelet Count 253 X10*3/uL (160-400); Red Blood Count 4.11 X10*6/uL (4.60-5.80); Red Cell Distribution Width 13.8 % (11.0-16.0); White Blood Count 8.3 X10*3/uL (4.8-10.8)
[2023-06-11 13:48] LABS: Alanine Aminotransferase 18 U/L (0-40); Alkaline Phosphatase 58 U/L (39-117); Anion Gap 14 (12-20); Aspartate Amino Transferase 23 U/L (5-37); Bilirubin Total 0.5 mg/dL (0.0-1.0); Blood Urea Nitrogen 36 mg/dL (9-16); Calcium 9.7 mg/dL (8.4-10.2); Carbon Dioxide 25 mmol/L (22-29); Chloride 105 mmol/L (96-108); Cholesterol 143 mg/dL (<200); Estimated Glomerular Filt Rate > 60; Glucose Fasting 122 mg/dL (60-99); HDL Cholesterol 44 mg/dL (>40); LDL Cholesterol Calculated 84 mg/dL (<100); Potassium 4.8 mmol/L (3.3-5.1); Sodium 139 mmol/L (135-145); Total Protein 7.1 g/dL (6.5-8.0); Triglycerides 79 mg/dL (<150)
[2023-06-11 14:11] LABS: Prostate Specific Antigen < 0.10 ng/mL (<0.05-4.0)
[2023-06-17 14:59] LABS: Testosterone, Total 6 ng/dL (250-1100)
== END 2023-06-11 09:43 | disposition home or self-care (01) ==
LOC: HO.HMGCLDS 09:42
PROVIDERS: Urology; PCP Internal Medicine; Visit Provider Internal Medicine
DX: Z12.5 Encounter for screening for malignant neoplasm of prostate (principal); C61 Malignant neoplasm of prostate; I10 Essential (primary) hypertension; E78.00 Pure hypercholesterolemia, unspecified; J41.1 Mucopurulent chronic bronchitis; G31.84 Mild cognitive impairment of uncertain or unknown etiology
CPT/HCPCS: 36415; 80053; 80061; 84153; 84403; 85025

== ENCOUNTER 2023-07-07 13:16 | Outpatient (AMB) | payer MEDICARE, SELFPAY ==
--- NOTE | 2023-07-07 14:02 | AM.OFFWIN_ITS ---
Intake Vital Signs 07/07/23 14:10 07/07/23 15:59 Height 5 ft 6 in Weight 164 lb BMI 26.5 BP 128/72 Blood Pressure Location Lt brachial Position Sitting Pulse 78 Pulse Source Pulse Oximeter Temp 98.3 F Temp Source Oral Pulse Oximetry (%) 93 95 Oxygen Delivery Method Room Air Intake Visit Reasons: SHANK BONER/congestion (lobby masked) Intake Note: Patient is here with congestion since Thursday, patient has history of COPD. Patient Tobacco Use Status: Former Tobacco user Allergies No Known Drug Allergies [NO KNOWN DRUG ALLERGIES] Allergy (Unknown, Verified 07/07/23 14:13) NONE Do you need a note to return to daycare/school/sports/work: No HPI HPI Comments History of Present Illness Details Patient is an 88-year-old male in today for a sick visit. He states that over the past several days he has developed symptoms of cough, chest congestion, sore throat, headache, and reproducible chest wall pain. He states that his partner at home had similar symptoms 1 week prior. He has a past medical history significant for COPD. He has not tried any [id number] medication for relief. Denies dizziness, numbness, tingling, chest pain, shortness a breath. Does state that he has a productive cough and is bringing up green mucus. Patient declined chest x-ray today. [facility] Medical History COPD (chronic obstructive pulmonary disease) Cough Eczema Gallstones HTN (hypertension) Hyperlipidemia Kidney cysts Kidney stones Nocturia Prostate cancer Prostate cancer Surgical History History of prostatectomy Family History Father No problems noted. Mother No problems noted. Social History Patient Tobacco Use Status: Former Tobacco user Years Smoked: 30 years Review of Systems Const Details: Constitutional : No Weight loss, No Fever, No Chills, No Fatigue, No Malaise ENT/Mouth : Admits sore throat, No Rhinorrhea Eyes: No Eye Pain, No Swelling, No Redness Cardiovascular : No Chest Pain, No SOB, No Dyspnea on Exertion, No Orthopnea, No Edema, No Palpitations Respiratory : Admits Cough, Admits Sputum, No Wheezing Gastrointestinal : No Nausea, No Vomiting, No Diarrhea, No Constipation, No abdominal Pain, No Hematochezia, No Melena Genitourinary : No Dysuria, No Urinary Frequency, No Hematuria, Musculoskeletal : No joint pain, No Myalgias, No Joint Swelling Skin : No Skin Lesions, No rash Neuro : No Weakness, No Numbness, No Dizziness, No Headache Psych : No Anxiety/Panic, No Depression Heme/Lymph: No Bruising, No Bleeding,No Lymphadenopathy Endocrine : No Polyuria, No Polydipsia All other systems reviewed and are negative Physical Exam Vital Signs: Last Vital Signs Temp 98.3 F 07/07/23 14:10 Pulse 78 07/07/23 14:10 BP 128/72 07/07/23 14:10 Pulse Ox 93 07/07/23 14:10 BMI result Body Mass Index 26.5 After in office [employer] patient pulse oximetry read 95. Const Other: Appearance: Alert.? Oriented X3.? No acute distress.? Eyes: Pupils equal, round and reactive to light.? ENT: Pharynx normal.?Septum Midline, TM intact and pearly stoner. Neck: Normal inspection.? Neck supple.?Full ROM CVS: Normal heart rate and rhythm.? Pulses normal.? Respiratory: No respiratory distress.? Patient has Rhonchi. Skin: Skin warm and dry.? Normal skin color.? Normal skin turgor.? Neuro: Oriented X 3.? No motor deficit.? No sensory deficit. CN 2-12 intact Results Reviewed Results Reviewed: Will call patient with swab in lab results. Assessment & Plan Assessment & Plan (1) Upper respiratory infection: Comment: Patient likely has upper respiratory infection. Patient also has COPD diagnosis. Will give Augmentin to be taken as prescribed. Will also give prednisone and benzonatate. Patient has been educated how to take these medications properly in the common side effects. He has been educated on when to discontinue these medications. He has been educated on signs of worsening symptoms when to return to the walk-in or when to report to the emergency room. Code(s): J06.9 - Acute upper respiratory infection, unspecified Qualifiers: URI type: unspecified URI Qualified Code(s): J06.9 - Acute upper respiratory infection, unspecified Plan: Take your medications as prescribed. If you were prescribed antibiotics today, it is important that you take your medication to their entirety, do not skip any doses, do not finish them early. Follow-up with your primary care provider this week. Return to the emergency department with new or worsening symptoms. Such as fevers, chills, chest pain, shortness of breath, nausea, vomiting, dizziness, headache, vision changes, lethargy In case of emergency call 911 Plan Will call patient with chest x-ray results. Patient should follow-up with PCP. Orders: Orders SARS-CoV2/FLU/RSV Today J06.9 - Acute upper respiratory infection, unspecified Comprehensive Met. Panel Today E86.0 - Dehydration AMB Nebulizer Treatment Today R05 - Cough Complete Blood Count Auto Diff Today Z13.0 - Encounter for screening for diseases of the blood and blood-forming organs and certain disorders involving the immune mechanism Medications: New prednisone 20 mg PO DAILY 5 tabs 0RF ipratropium-albuterol 0.5 mg-3 mg(2.5 mg base)/3 mL 3 mL inhalation ONCE 3 mL 0RF R05 - Cough amoxicillin-pot clavulanate 875-125 mg 1 tab PO Q12H 20 tabs 0RF benzonatate 100 mg PO BID PRN 20 caps 0RF cough Coding Level of Care Code Est Pt Level 3 (71745) Diagnoses Upper respiratory tract infection, unspecified type J06.9 URI type: unspecified URI Time Spent (min) 30
[2023-07-07 14:10] VITALS: BP 128/72; PULSE 78; TEMP 36.8; O2SAT 93; BMI 26.5
[2023-07-07 15:59] VITALS: O2SAT 95
== END 2023-07-07 15:36 | disposition home or self-care (01) ==
PROVIDERS: PCP Internal Medicine; Visit Provider Nurse Practitioner Primary Care
DX: J06.9 Acute upper respiratory infection, unspecified (principal)
CPT/HCPCS: 99213

== ENCOUNTER 2023-07-07 14:56 | Outpatient (REF) | payer MEDICARE, SELFPAY ==
[2023-07-07 18:36] LABS: Influenza A PCR NEGATIVE (Negative); Influenza B PCR NEGATIVE (Negative); Resp Syncy Virus RNA Qual PCR NEGATIVE (Negative); SARS COV2 PCR INHOUSE NEGATIVE (Negative)
== END 2023-07-07 14:57 | disposition home or self-care (01) ==
LOC: HO.LAB 14:56
PROVIDERS: Visit Provider Nurse Practitioner Primary Care
DX: J06.9 Acute upper respiratory infection, unspecified (principal); E86.0 Dehydration; Z13.0 Encounter for screening for diseases of the blood and blood-forming organs and certain disorders involving the immune mechanism; Z11.52 Encounter for screening for COVID-19; Z20.828 Contact with and (suspected) exposure to other viral communicable diseases
CPT/HCPCS: 0241U; 36415; 80053; 85007; 85027

== ENCOUNTER 2023-07-07 15:00 | Outpatient (REF) | payer MEDICARE, SELFPAY ==
[2023-07-07 17:27] LABS: Hematocrit 39.1 % (42.0-52.0); Hemoglobin 12.9 g/dl (14.0-18.0); Mean Corpuscular Hemoglobin 30.1 pg (27.0-33.0); Mean Corpuscular Volume 91.4 fL (80.0-98.0); Mean Platelet Volume 9.6 fL (9.4-12.4); Red Blood Count 4.28 X10*6/uL (4.60-5.80); Red Cell Distribution Width 13.5 % (11.0-16.0); White Blood Count 17.2 X10*3/uL (4.8-10.8)
[2023-07-07 17:44] LABS: Alanine Aminotransferase 42 U/L (0-40); Alkaline Phosphatase 79 U/L (39-117); Anion Gap 17 (12-20); Aspartate Amino Transferase 33 U/L (5-37); Bilirubin Total 0.6 mg/dL (0.0-1.0); Blood Urea Nitrogen 28 mg/dL (9-16); Calcium 9.8 mg/dL (8.4-10.2); Carbon Dioxide 23 mmol/L (22-29); Chloride 102 mmol/L (96-108); Estimated Glomerular Filt Rate > 60; Glucose Random 117 mg/dL (60-115); Potassium 3.6 mmol/L (3.3-5.1); Sodium 138 mmol/L (135-145); Total Protein 7.9 g/dL (6.5-8.0)
[2023-07-07 18:20] LABS: SLIDE REVIEW MANUAL DIFF
[2023-07-07 18:21] LABS: Atypical Lymphs Percent Manual 6 % (0-6); Basophils Abs Manual 0.2 X10*3/uL (0.0-0.2); Basophils Percent Manual 1 % (0-2); Eosinophils Absolute Manual 0.2 X10*3/uL (0.0-0.4); Eosinophils Percent Manual 1 % (0-4); Lymphocytes Absolute Manual 2.9 X10*3/uL (1.2-4.9); Lymphocytes Percent Manual 17 % (20-40); Monocytes Absolute Manual 2.1 X10*3/uL (0.1-1.2); Monocytes Percent Manual 12 % (2-11); Neutrophils Percent Manual 63 % (45-73); Platelet Estimate NORMAL (NORMAL); Platelet Morphology Comment NORMAL; RBC Morphology NORMAL
[2023-07-07 18:22] LABS: Neutrophils Absolute Manual 10.8 X10*3/uL (2.0-8.3)
== END 2023-07-07 15:01 | disposition home or self-care (01) ==
LOC: HO.HMGCLDS 15:00
PROVIDERS: PCP Internal Medicine; Visit Provider Nurse Practitioner Primary Care
DX: Z13.89 Encounter for screening for other disorder (principal)
CPT/HCPCS: 36415; 80053; 85007; 85027

== ENCOUNTER 2023-08-15 11:51 | Outpatient (AMB) | payer MEDICARE, SELFPAY ==
[2023-08-15 12:11] VITALS: BP 134/68; PULSE 74; TEMP 37.1; O2SAT 93; BMI 26.6
--- NOTE | 2023-08-15 12:11 | MHC.OFFWIV ---
Intake Vital Signs 08/15/23 12:11 Height 5 ft 6 in Weight 165 lb BMI 26.6 BP 134/68 Blood Pressure Location Rt brachial Position Sitting Pulse 74 Pulse Source Pulse Oximeter Temp 98.7 F Temp Source Oral Pulse Oximetry (%) 93 Oxygen Delivery Method Room Air Intake Visit Reasons: EP Rt ear ?infection Intake Note: Pt is here today Rt ear painful ? infection x1wk also chest congestion Patient Tobacco Use Status: Former Tobacco user Allergies No Known Drug Allergies [NO KNOWN DRUG ALLERGIES] Allergy (Unknown, Verified 08/15/23 12:11) NONE HPI HPI Comments History of Present Illness Details 88-year-old male that presents for right ear pain. Present for several days. Denies fevers or chills use some drops at home. [facility] Medical History COPD (chronic obstructive pulmonary disease) Cough Eczema Gallstones HTN (hypertension) Hyperlipidemia Kidney cysts Kidney stones Nocturia Prostate cancer Prostate cancer Surgical History History of prostatectomy Family History Father No problems noted. Mother No problems noted. Social History Patient Tobacco Use Status: Former Tobacco user Years Smoked: 30 years Review of Systems ENT Reports otalgia Physical Exam Vital Signs: Last Vital Signs Temp 98.7 F 08/15/23 12:11 Pulse 74 08/15/23 12:11 BP 134/68 08/15/23 12:11 Pulse Ox 93 08/15/23 12:11 Oxygen Delivery Method Room Air 08/15/23 12:11 BMI result Body Mass Index 26.6 Const General: cooperative, healthy appearing, no acute distress and alert Orientation/consciousness: patient oriented x3 Limitations: no limitations HEENT Other: Left TM with mild effusion good light reflex. Scant material in the ear canal mildly sensitive no tragal tenderness Head: Yes normal to inspection Ears: hearing grossly normal bilaterally General nose exam: Normal external nose present Resp Effort & Inspection: normal respiratory effort and able to speak in complete sentences Cardio Rate: regular rate Skin General skin exam: no rashes or lesions noted Neuro General: patient oriented x3 Extrem General: Yes normal to inspection Assessment & Plan Assessment & Plan (1) Ear pain, right: Code(s): H92.01 - Otalgia, right ear Plan: Presents otitis externa no evidence of otitis media. Will trial ofloxacin drops Medications: New ofloxacin 0.3% 10 drps otic (ears) DAILY 10 mL 0RF 7 days Coding Level of Care Code Est Pt Level 2 (06056) Diagnoses Ear pain, right H92.01
== END 2023-08-15 12:43 | disposition home or self-care (01) ==
PROVIDERS: PCP Internal Medicine; Visit Provider Physician Assistant
DX: H92.01 Otalgia, right ear (principal)
CPT/HCPCS: 99212

== ENCOUNTER 2023-09-21 13:41 | Outpatient (AMB) | payer MEDICARE, SELFPAY ==
[2023-09-21 14:14] VITALS: BP 120/80; PULSE 61; TEMP 36.4; O2SAT 92; BMI 27.0
--- NOTE | 2023-09-21 14:14 | MHC.OFFWIV ---
Intake Vital Signs 09/21/23 14:14 Height 5 ft 6 in Weight 167 lb BMI 27.0 BP 120/80 Blood Pressure Location Lt brachial Position Sitting Pulse 61 Pulse Source Pulse Oximeter Temp 97.6 F Temp Source Temporal Artery Scan Pulse Oximetry (%) 92 Oxygen Delivery Method Room Air Intake Visit Reasons: RT ribs fall 09/16/23 Intake Note: pt is here today for rib pain due to fall started 09/15 Patient Tobacco Use Status: Former Tobacco user Allergies No Known Drug Allergies [NO KNOWN DRUG ALLERGIES] Allergy (Unknown, Verified 09/21/23 15:33) NONE Medication List - Last Reconciled 09/21/23 by Rickie Magana MD aspirin 81 mg PO DAILY atorvastatin 40 mg PO DAILY betamethasone dipropionate 0.05% appl topical BID Breo Ellipta 200-25 mcg/dose (fluticasone furoate-vilanterol) 1 ea inhalation DAILY NS fluoxetine 20 mg PO DAILY latanoprost 0.005% drps ophthalmic (eye) ofloxacin 0.3% 10 drps otic (ears) DAILY 7 days Do you need a note to return to daycare/school/sports/work: No HPI RT ribs fall 09/16/23 HPI Details 88-year-old male presents to the office for a sick visit. Patient fell on the grass yesterday. He landed on his side. He could get up on his own. This morning he reports minimal discomfort on taking a deep breath. [facility] Medical History COPD (chronic obstructive pulmonary disease) Cough Eczema Gallstones HTN (hypertension) Hyperlipidemia Kidney cysts Kidney stones Nocturia Prostate cancer Prostate cancer Surgical History History of prostatectomy Family History Father No problems noted. Mother No problems noted. Social History Patient Tobacco Use Status: Former Tobacco user Years Smoked: 30 years Physical Exam Vital Signs: Last Vital Signs Temp 97.6 F 09/21/23 14:14 Pulse 61 09/21/23 14:14 BP 120/80 09/21/23 14:14 Pulse Ox 92 09/21/23 14:14 Oxygen Delivery Method Room Air 09/21/23 14:14 BMI result Body Mass Index 27.0 Const General: cooperative and healthy appearing Nutritional Appearance: well nourished Orientation/consciousness: patient oriented x3 Limitations: no limitations HEENT Head: Yes normal to inspection Eyes General: appearance normal, both eyes and all related structures Neck Neck: Yes normal visual inspection Chest Other: Tenderness in the right infrascapular area Chest palpation & inspection: normal palpation of entire chest wall Resp Effort & Inspection: normal respiratory effort Neuro General: patient oriented x3 Assessment & Plan Assessment & Plan (1) Contusion, chest wall: Code(s): S20.219A - Contusion of unspecified front wall of thorax, initial encounter Plan: X-ray images were personally reviewed by me. Possibility of a nondisplaced 11th rib fracture. However the site of pain is further away from the site of the fracture. Pain control with [id number] Tylenol. If symptoms do not improve to follow-up here. Orders: Orders XR ribs RT min 3V w CXR1V Today S20.219A - Contusion of unspecified front wall of thorax, initial encounter Coding Level of Care Code Est Pt Level 4 (41942) Diagnoses Contusion, chest wall S20.219A
== END 2023-09-21 16:05 | disposition home or self-care (01) ==
PROVIDERS: PCP Internal Medicine; Visit Provider Internal Medicine
DX: S20.219A Contusion of unspecified front wall of thorax, initial encounter (principal)
CPT/HCPCS: 99214

== ENCOUNTER 2023-09-21 15:20 | Outpatient (REF) | payer MEDICARE, SELFPAY ==
--- NOTE | ~2023-09-21 | XR_ITS ---
EXAMINATION: XR RIBS, RIGHT CLINICAL INFORMATION: Confusion COMPARISON: Chest radiograph 05/25/2023, CT angiogram chest 06/07/2021, right rib radiographs 11/10/2019 TECHNIQUE: A single view of the chest and 3 views of the right ribs were obtained. FINDINGS: There is chronic blunting of the right costophrenic angle unchanged from 05/25/2023. Heart size normal. Left chest wall dual-lead pacemaker unchanged. Lungs are clear. No consolidation, pneumothorax, or pleural effusion. The cardiomediastinal silhouette and pulmonary vasculature are normal. There is a chronic rib fracture involving the 10th posterolateral right rib with sclerosis and nonunion. At the time of the 11/10/2019 study, this rib fracture was displaced. The remainder of the ribs are intact. No acute fractures are identified. XR/XR ribs RT min 3V w CXR1V IMPRESSION: 1. No acute pulmonary disease. 2. 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 No acute fractures are identified.
== END 2023-09-21 15:21 | disposition home or self-care (01) ==
LOC: HO.HMGCX 15:20
PROVIDERS: PCP Internal Medicine; Visit Provider Internal Medicine
DX: S20.211A Contusion of right front wall of thorax, initial encounter (principal)
CPT/HCPCS: 71101

== ENCOUNTER 2023-09-23 18:14 | Emergency (ER) | payer MEDICARE, SELFPAY ==
--- NOTE | ~2023-09-23 | CT_ITS ---
Examination: CT brain, CT cervical spine, chest x-ray and left forearm. Clinical indications: Short of breath, fall with pain. COMPARISON: Chest x-ray 09/21/2023. TECHNIQUE: Chest x-ray 2 views. Left forearm 2 views. 5 mm thin axial and reformatted 2 minutes thin sagittal coronal images of brain were obtained. Subsequently axial 3 minutes thin and reformatted 2 mm thin sagittal and coronal images of cervical spine were obtained. DLP 1037. This CT examination was performed using dose optimization technique as appropriate, variously including the following: Automated exposure control Adjustment of MA and/or KV according to patient size(this includes techniques or standardized protocols for targeted exams where dose is matched to indication/reason for exam; extremities or head. Use of iterative reconstruction techniques. FINDINGS: Chest x-ray: The lungs are hyperinflated with mild blunting of right CP angle. No acute pneumonic process seen.. Heart size and pulmonary vascularity is normal. There are dual pacer electrodes in right atrium and right ventricle. No gross bony abnormality seen. Left forearm: Visualized radius and ulna are intact. There is no visible acute fracture, dislocation or subluxation seen. The soft tissues are normal. Brain: There is no acute intra-axial, extra-axial bleed, masses or midline shift. There is no acute infarction in evolution. There is no edema. The stoner to white matter differentiation is maintained normal. The lateral ventricles are symmetrical in size and configuration but mildly enlarged. Bone windows reveal no calvarial abnormality. There is diffuse mucoperiosteal thickening almost opacifying the entire maxillary sinus. Rest of the paranasal sinuses are well-aerated. The mastoid sinuses are clear. There is no scalp soft tissue normality seen. Cervical spine: There is mild straightening of cervical lordosis. The vertebral heights and alignment is normal. There is loss of C5-C6 and C6 S1 disc heights with mild ventral and posterior cervical spondylosis. The craniovertebral junction and the C1-C2 alignment is normal. There is no visible acute fracture, dislocation or subluxation. Bilateral TM joints are symmetrical and normal. CT/CT cervical spine wo IV con IMPRESSION: 1. No acute intracranial process seen. 2. Chronic left maxillary sinus inflammatory changes. 3. No visible acute fracture, dislocation or subluxation in cervical spine. There are degenerative disc changes C5-C6 and C6-C7 disc levels with mild ventral and posterior spondylosis. 4. Unremarkable chest x-ray. 5. Unremarkable left forearm
--- NOTE | 2023-09-23 19:09 | ED_ITS ---
HPI - General Adult General Chief complaint: Fall Stated complaint: fell, cut on arm Time Seen by Provider: 09/24/23 06:34 Source: patient, family ( at bedside), RN notes reviewed and old records reviewed Mode of arrival: ambulatory Limitations: no limitations History of Present Illness HPI narrative: Mike is a 88 year old male with history of COPD, HLD, HTN, and prostate cancer presenting today for evaluation s/p fall. He is accompanied by his who drove him to the ER last night at 6pm. Patient reports that he fell at 5pm on 09/23/2023. He denies any lightheadedness or dizziness and states that he just lost his balance . He was in the kitchen when he fall and she states that she heard a loud thump and found him laying on the ground in the living room. Denies any head strike or LOC. On impact, he landed on his left side. Reports pain to the left upper abdomen/ flank region. Has a lac on left arm with which he reports some pain. No blood thinners. Reports that remembers feeling very nervous beforehand. He reports that about a week prior he had another fall at home which occurred when he was trying to catch his dog which was loose. He reports that he tripped over the dog and landed on his right side. Per patient, he suffered a broken rib on the right side as well as a rib contusion. Denies any chest pain, shortness of breath, or palpitations. Onset (ago): hour(s) (10 hours) Location: left and upper extremity (left arm) Radiation: non-radiation Severity: moderate Pain Consistency: constant Relieving factors: rest Exacerbating factors: movement Treatments prior to arrival: none Related Data Home Medications Medication Instructions Recorded Confirmed fluoxetine 20 mg capsule 20 mg PO DAILY 06/27/20 07/03/22 aspirin 81 mg tablet,delayed 81 mg PO DAILY 08/16/20 07/03/22 release betamethasone dipropionate 0.05 % appl topical BID 09/26/20 07/03/22 topical cream atorvastatin 40 mg tablet 40 mg PO DAILY 01/23/21 07/03/22 latanoprost 0.005 % eye drops drp ophthalmic (eye) 07/07/23 Previous Rx's Medication Instructions Recorded Breo Ellipta 200 mcg-25 mcg/dose 1 ea inhalation DAILY #3 ea 06/18/23 powder for inhalation (fluticasone furoate-vilanterol) ofloxacin 0.3 % ear drops 10 drp otic (ears) DAILY 7 days 08/15/23 #10 mL Allergies Allergy/AdvReac Type Severity Reaction Status Date / Time No Known Drug Allergies Allergy Unknown NONE Verified 09/21/23 15:33 [NO KNOWN DRUG ALLERGIES] Review of Systems 2 Review of Systems: Yes all other systems are reviewed and are negative FORMERLY [facility] Past Medical History Medical History COPD (chronic obstructive pulmonary disease) Cough Eczema Gallstones HTN (hypertension) Hyperlipidemia Kidney cysts Kidney stones Nocturia Prostate cancer Prostate cancer Surgical History History of prostatectomy Family History Family History Father No problems noted. Mother No problems noted. Social History Social History Patient Tobacco Use Status: Former Tobacco user Years Smoked: 30 years Advance Directives: No Advance Directives Information Provided: No Physical Exam ED Vital Signs: Vital Signs - 24 hr 09/23/23 19:10 09/23/23 23:36 09/24/23 06:00 Temperature 98.2 F 97.7 F 97.8 F Pulse Rate 91 63 65 Respiratory Rate 16 16 Blood Pressure 124/82 189/101 H 168/62 H Pulse Oximetry 89 L 92 94 Oxygen Delivery Method Room Air Room Air Room Air 09/24/23 07:21 09/24/23 07:57 09/24/23 10:15 Temperature 97.7 F Pulse Rate 62 62 63 Respiratory Rate 20 16 Blood Pressure 180/78 H 180/78 H 176/71 H Pulse Oximetry 95 95 95 Oxygen Delivery Method Room Air Room Air BMI result Body Mass Index 26.0 Appearance: Alert. Oriented X3. No acute distress. Head: normocephalic, atraumatic. Eyes: Pupils equal, round Neck: Normal inspection. Neck supple. CVS: Normal heart rate and rhythm. Pulses normal. Respiratory: No respiratory distress. Breath sounds normal. Abdomen: Soft and nontender. Skin: Skin warm and dry. Normal skin color. Normal skin turgor. No rashes. Extremities: No lower extremity edema. No joint swelling. 8 cm Superficial skin tear to left forearm with surrounding ecchymosis. Limited ROM with left lateral bending and rotation. Neuro/psych: Oriented X 3. No motor deficit. No sensory deficit. Normal speech and cognition. Course Course Course Narrative: This is an RME: Additional HPI, ROS, PE not included below will be deferred to primary provider. This is a 88-year-old male presenting to the emergency department complaints of left arm skin tear status post fall which occurred today. Patient states he had a ?lost his balance? and he landed onto his left side. Denies head strike or loss of consciousness. He denies dizziness or chest pain however states that he did ?lose his balance?. Not feeling short of breath however oxygen saturation 90% on room air. He is alert and oriented, skin tear noted on left arm, unable to fully visualize as a cause needs to be removed however struck to wound. Patient had a fall last week, he states that he tripped over the dog, has rib fracture. Plan: Labs, EKG, CT head and neck Reevaluation(s) Reevaluation #1: patient seen and evaluated by PT - stable for d/c home with home PT patient's skin tear was cleansed w/ saline. steri strips used to best approximate skin tear Xeroform used on the wound along w/ nonstick dressing and gauze wrap. this should be changed every 48 hours by visiting nurses at home. patient and updated on wound care plans and stable for d/c home Time: 10:32 Medications Administered Discontinued Medications Generic Name Dose Route Start Last Admin Trade Name Ortiz PRN Reason Stop Dose Admin Acetaminophen 975 mg 09/24/23 06:58 09/24/23 07:31 Acetaminophen 325 Mg Tablet PO 09/24/23 06:59 975 mg ONCE ONE Administration Procedures Laceration Laceration 1: Site: upper extremity Side (If applicable): left Size (cm): 8 Description: flap and irregular Depth: simple, single layer Skin layer closed with: other (steri strips) Medical Decision Making Medical Decision Making MDM Narrative: Mike is a 88 year old male with history of COPD, HTN, HLD, and prostate cancer presenting today for evaluation s/p fall 10 hours ago. He is accompanied by his who drove him to the ER. reports that she was in the kitchen when she heard a loud thump. Patient reports that he, all of a sudden, lost his balance and fell on his left side. Reports mechanical fall week prior in which he tripped over his dog. On physical exam, he is well-appearing and A&Ox3. Has superficial laceration/skin tear on left forearm which is bandaged. He reports light sided pain that is localized to the upper abdominal/flank region. No ecchoymosis or tender to palpation but has limited range of motion with leftward rotation. CT head reveals no bleeding or ischemic changes, making ischemic stroke, hemorrhagic stroke, and TIA unlikely. Considering benign work-up, fall was most likely due to mechanical etiology. Consulted PT for evaluation. Consulted case management for potential placement following PT eval. Ordered Tylenol 975 mg once time dose for pain. Ordered UA for evaluation of infectious etiology which was negative. Patient passed PT and did well ambulating. Stable for d/c home w/ home PT and VNA. Wound care discussed. Stable for d/c. Differential Diagnosis Differential Diagnoses: The differential diagnosis associated with the presentation includes mechanical fall vs orthostatic hypotension, vasovagal syncope, ischemic stroke, hemorrhagic stroke, transient ischemic attack, UTI, Admission/Observation Consideration of admission/observation: Escalation of care including admission/observation considered Lab Data MDM Lab Attestation statement: I reviewed the patient's lab results. Patient has mildly elevated WBC today at 14.8, likely due to acute tress response. 09/23/23 19:46 09/23/23 19:46 Labs: Lab Results 09/23/23 09/24/23 Range/Units 19:46 08:02 WBC 14.8 H (4.8-10.8) X10*3/uL RBC 4.26 L (4.60-5.80) X10*6/uL Hgb 12.4 L (14.0-18.0) g/dl Hct 37.3 L (42.0-52.0) % MCV 87.6 (80.0-98.0) fL MCH 29.1 (27.0-33.0) pg MCHC 33.2 (31.0-36.0) g/dl RDW 14.2 (11.0-16.0) % Plt Count 306 (160-400) X10*3/uL MPV 8.7 L (9.4-12.4) fL Immature Gran % (Auto) 0.5 H (0.0-0.4) % Neut % (Auto) 66.1 (45-73) % Lymph % (Auto) 25.4 (20-40) % [place] % (Auto) 5.3 (2-11) % Eos % (Auto) 2.5 (0-4) % Baso % (Auto) 0.2 (0-2) % Lymph # (Auto) 3.8 (1.2-4.9) X10*3/uL [place] # (Auto) 0.8 (0.1-1.2) X10*3/uL Eos # (Auto) 0.4 (0.0-0.4) X10*3/uL Baso # (Auto) 0.0 (0.0-0.2) X10*3/uL Abs Immat Gran (auto) 0.07 H (0.00-0.03) X10*3/uL Absolute Neuts (auto) 9.8 H (2.0-8.3) x10*3/uL Absolute Nucleated RBC 0.000 (0.0-0.012) X10*3/uL Nucleated RBC % (auto) 0.0 (0.0-0.2) /100WBC Sodium 139 (135-145) mmol/L Potassium 4.1 (3.3-5.1) mmol/L Chloride 107 (96-108) mmol/L Carbon Dioxide 25 (22-29) mmol/L Anion Gap 11 L (12-20) BUN 30 H (9-16) mg/dL Creatinine 1.10 (0.5-1.4) mg/dL Estim Creat Clear Calc 43.3 Estimated GFR > 60 Random Glucose 115 (60-115) mg/dL Calcium 9.6 (8.4-10.2) mg/dL Magnesium 2.0 (1.6-2.6) mg/dL Total Bilirubin 0.4 (0.0-1.0) mg/dL Direct Bilirubin 0.2 (0.0-0.5) mg/dL AST 21 (5-37) U/L ALT 19 (0-40) U/L Alkaline Phosphatase 75 (39-117) U/L Troponin I High Sens 13.6 (<3.5-35.0) ng/L Total Protein 7.2 (6.5-8.0) g/dL Albumin 3.9 (3.5-5.0) g/dL Urine Color Yellow Urine Appearance Clear Urine pH 6.5 (5.0-9.0) Ur Specific [place] 1.015 (1.005-1.025) Urine Protein Negative (Neg-Trace) mg/dL Urine Glucose (UA) Negative (Negative) mg/dL Urine Ketones Negative (Negative) mg/dL Urine Blood Negative (Negative) Urine Nitrite Negative (Negative) Ur Leukocyte Esterase Negative (Negative) Independent Interpretation I performed an independent interpretation of an: EKG, Plain X-Ray and CT Scan Interpretation: Sinus rhythm with ventricular rate of 73 BPM, AV dual-paced complexes present with precordial ST depression present. Appears to be unchanged from prior ECG. CT head/c-spine without acute bleed or edema x-ray chest is clear x-ray forearm without fracture Radiology Impression Discussion of test interpretation with radiology: I have reviewed the radiologist's reading. Radiologist Impression: Examination: CT brain, CT cervical spine, chest x-ray and left forearm. Clinical indications: Short of breath, fall with pain. COMPARISON: Chest x-ray 09/21/2023. TECHNIQUE: Chest x-ray 2 views. Left forearm 2 views. 5 mm thin axial and reformatted 2 minutes thin sagittal coronal images of brain were obtained. Subsequently axial 3 minutes thin and reformatted 2 mm thin sagittal and coronal images of cervical spine were obtained. DLP 1037. This CT examination was performed using dose optimization technique as appropriate, variously including the following: Automated exposure control Adjustment of MA and/or KV according to patient size(this includes techniques or standardized protocols for targeted exams where dose is matched to indication/reason for exam; extremities or head. Use of iterative reconstruction techniques. FINDINGS: Chest x-ray: The lungs are hyperinflated with mild blunting of right CP angle. No acute pneumonic process seen.. Heart size and pulmonary vascularity is normal. There are dual pacer electrodes in right atrium and right ventricle. No gross bony abnormality seen. Left forearm: Visualized radius and ulna are intact. There is no visible acute fracture, dislocation or subluxation seen. The soft tissues are normal. Brain: There is no acute intra-axial, extra-axial bleed, masses or midline shift. There is no acute infarction in evolution. There is no edema. The stoner to white matter differentiation is maintained normal. The lateral ventricles are symmetrical in size and configuration but mildly enlarged. Bone windows reveal no calvarial abnormality. There is diffuse mucoperiosteal thickening almost opacifying the entire maxillary sinus. Rest of the paranasal sinuses are well-aerated. The mastoid sinuses are clear. There is no scalp soft tissue normality seen. Cervical spine: There is mild straightening of cervical lordosis. The vertebral heights and alignment is normal. There is loss of C5-C6 and C6 S1 disc heights with mild ventral and posterior cervical spondylosis. The craniovertebral junction and the C1-C2 alignment is normal. There is no visible acute fracture, dislocation or subluxation. Bilateral TM joints are symmetrical and normal. CT/CT head/brain wo IV con IMPRESSION: 1. No acute intracranial process seen. 2. Chronic left maxillary sinus inflammatory changes. 3. No visible acute fracture, dislocation or subluxation in cervical spine. There are degenerative disc changes C5-C6 and C6-C7 disc levels with mild ventral and posterior spondylosis. 4. Unremarkable chest x-ray. 5. Unremarkable left forearm Independent Historian Clinical information obtained from an independent historian. History obtained from or confirmed by: Spouse External Record Review External record reviewed: Outpatient record, Prior outpatient labs and Prior outpatient radiology Prescription Management I considered prescription management with: Pain Medication Chronic Conditions Patient?s care impacted by: Other (COPD) Critical Care Time Critical Care Time Critical Care Time: No Discharge Plan Discharge Clinical Impression: Skin tear of left upper extremity Patient Disposition: Home, Self-Care Instructions: Skin Tear (ED) Additional Instructions: Your imaging today did not show any significant abnormalities. Your skin tear will heal slowly with time. Recommend dressing changes every 24-48 hours. Visiting nurse will be at your house Thursday to change the dressing. Take tylenol as needed for pain Follow up with your doctor next week. If you develop new or worsening symptoms call 911 or come back to the ER for further evaluation. Prescriptions: No Action Breo Ellipta 200-25 mcg/dose blister with device 1 ea inhalation DAILY Qty: 3 3RF ipratropium-albuterol 0.5 mg-3 mg(2.5 mg base)/3 mL solution for nebulization 3 ml inhalation ONCE Qty: 3 0RF latanoprost 0.005 % drops ophthalmic (eye) ofloxacin 0.3 % drops 10 drp otic (ears) DAILY 7 Days Qty: 10 0RF betamethasone dipropionate 0.05 % cream topical BID fluoxetine 20 mg capsule 20 mg PO DAILY atorvastatin 40 mg tablet 40 mg PO DAILY aspirin 81 mg tablet,delayed release (DR/EC) 81 mg PO DAILY Referrals: Pirsc[facility] [Outside]
[2023-09-23 19:10] VITALS: BP 124/82; PULSE 91; RESP 16; TEMP 36.8; O2SAT 89; BMI 26.0
--- NOTE | 2023-09-23 19:17 | ECG_ITS ---
Test Reason : fall Blood Pressure : / mmHG Vent. Rate : 073 BPM Atrial Rate : 073 BPM P-R Int : 146 ms QRS Dur : 126 ms QT Int : 460 ms P-R-T Axes : 060 -67 007 degrees QTc Int : 506 ms Sinus rhythm with occasional AV dual-paced complexes and Premature supraventricular complexes Right bundle branch block Left anterior fascicular block Bifascicular block Abnormal ECG When compared with ECG of 07-JUN-2021 10:32, Premature supraventricular complexes are now Present Vent. rate has increased BY 13 BPM Referred By: Kimberley Yan Electronically Signed By:Hamlet Boone
--- NOTE | 2023-09-23 19:43 | MHC.EDTECH ---
EKG taken and signed by provider,labs drawn and sent to lab.
[2023-09-23 19:59] LABS: MANUAL DIFF FLAG NO
[2023-09-23 20:00] LABS: Basophils Percent Auto 0.2 % (0-2); Eosinophils Absolute Auto 0.4 X10*3/uL (0.0-0.4); Eosinophils Percent Auto 2.5 % (0-4); Hematocrit 37.3 % (42.0-52.0); Hemoglobin 12.4 g/dl (14.0-18.0); Imm Gran Abs Auto 0.07 X10*3/uL (0.00-0.03); Imm Gran Pct Auto 0.5 % (0.0-0.4); Lymphocytes Absolute Auto 3.8 X10*3/uL (1.2-4.9); Lymphocytes Percent Auto 25.4 % (20-40); Mean Corpuscular HGB Conc 33.2 g/dl (31.0-36.0); Mean Corpuscular Hemoglobin 29.1 pg (27.0-33.0); Mean Corpuscular Volume 87.6 fL (80.0-98.0); Mean Platelet Volume 8.7 fL (9.4-12.4); Monocytes Absolute Auto 0.8 X10*3/uL (0.1-1.2); Monocytes Percent Auto 5.3 % (2-11); Neutrophils Absolute Auto 9.8 x10*3/uL (2.0-8.3); Neutrophils Percent Auto 66.1 % (45-73); Platelet Count 306 X10*3/uL (160-400); Red Blood Count 4.26 X10*6/uL (4.60-5.80); Red Cell Distribution Width 14.2 % (11.0-16.0); White Blood Count 14.8 X10*3/uL (4.8-10.8)
[2023-09-23 20:20] LABS: Alanine Aminotransferase 19 U/L (0-40); Albumin Level 3.9 g/dL (3.5-5.0); Alkaline Phosphatase 75 U/L (39-117); Anion Gap 11 (12-20); Aspartate Amino Transferase 21 U/L (5-37); Bilirubin Direct 0.2 mg/dL (0.0-0.5); Bilirubin Total 0.4 mg/dL (0.0-1.0); Blood Urea Nitrogen 30 mg/dL (9-16); Calcium 9.6 mg/dL (8.4-10.2); Carbon Dioxide 25 mmol/L (22-29); Chloride 107 mmol/L (96-108); Creatinine Clr Calc Pharmacy 43.3; Estimated Glomerular Filt Rate > 60; Glucose Random 115 mg/dL (60-115); Potassium 4.1 mmol/L (3.3-5.1); Sodium 139 mmol/L (135-145); Total Protein 7.2 g/dL (6.5-8.0)
[2023-09-23 20:26] LABS: Troponin-I High Sensitivity 13.6 ng/L (<3.5-35.0)
[2023-09-23 23:36] VITALS: BP 189/101; PULSE 63; RESP 16; TEMP 36.5; O2SAT 92
[2023-09-24 06:00] VITALS: BP 168/62; PULSE 65; TEMP 36.6; O2SAT 94
[2023-09-24 07:21] VITALS: BP 180/78; PULSE 62; RESP 20; TEMP 36.5; O2SAT 95
[2023-09-24] MEDS: Acetaminophen 325 MG TABLET 975 MG PO (07:31)
--- NOTE | 2023-09-24 07:37 | PC.NURSE ---
pt is alert and oriented, skin pwd, respirations even and unlabored, ls clear, pt coming from home with for a fall yesterday-left forearm wrapped in gauze and old dry blood visible, pt reports pain at /10 but is concern that its going to hurt, pt was given Tylenol for the pain. pt changed over and explained that the pt requires a urine sample, ns on the monitor but bp is elevated, pt does take bp medications. at bedside but going home to let the dog out and she did take the pt's necklace with her home.
[2023-09-24 07:57] VITALS: BP 180/78; PULSE 62; O2SAT 95
[2023-09-24 08:32] LABS: Appearance Urine Clear; Color Urine Yellow; Glucose Urine UA Negative (Negative); Leukocyte Esterase Urine Negative (Negative); Nitrite Urine Negative (Negative); PH 6.5 (5.0-9.0); Specific Gravity - Urine 1.015 (1.005-1.025); Urine Blood Negative (Negative); Urine Ketones Negative (Negative); Urine Protein Negative (Neg-Trace)
--- NOTE | 2023-09-24 09:12 | MHC.EDTECH ---
Dressing removed, cleaned and redressed. Pt tolerated well.
--- NOTE | 2023-09-24 10:03 | MHC.CM.ED ---
Received case management consult overnight. Patient came to the ER after a fall. Work up essentially negative except for left elbow skin tear. Physical therapy eval completed. Home services is recommended. Met with patient in regards to d/c planning. Patient lives with his , ambulates independently and had no services prior to coming to the ER. PCP verified. Patient states his has a copy of his HCP. Patient agreeable to returning home with [facility] for snf and physical therapy. Referral made to [facility] as requested. Patient's states his , Dona will transport patient home. Spoke with Dona via telephone at [phone]. Dona agreeable to d/c plan and will be on-site around 10am to transport patient home. Patient, Dona, Marni BARKER and Abby JEFF aware. Continue to monitor for d/c needs.
[2023-09-24 10:15] VITALS: BP 176/71; PULSE 63; RESP 16; O2SAT 95
[2023-09-24 11:06] VITALS: BP 176/71; PULSE 63; RESP 16; TEMP 36.5; O2SAT 95
== END 2023-09-24 11:09 | disposition home or self-care (01) ==
PROVIDERS: Physician Assistant; Physician Assistant Medical; Emergency Provider Emergency Medicine; PCP Internal Medicine
DX: S51.812A Laceration without foreign body of left forearm, initial encounter (principal); W18.30XA Fall on same level, unspecified, initial encounter; Y93.9 Activity, unspecified; Y92.000 Kitchen of unspecified non-institutional (private) residence as the place of occurrence of the external cause; Y99.9 Unspecified external cause status; R10.12 Left upper quadrant pain; I10 Essential (primary) hypertension
CPT/HCPCS: 12004; 36415; 70450; 71046; 72125; 73090; 80048; 80076; 81003; 83735; 84484; 85025; 93005; 97161; 99285

== ENCOUNTER → 2023-09-23 19:17 | Outpatient (BNV) | payer MEDICARE, SELFPAY | PROVIDERS: Emergency Provider Emergency Medicine; PCP Internal Medicine; Visit Provider Internal Medicine Cardiovascular Disease | DX: I45.10 Unspecified right bundle-branch block (principal); I45.2 Bifascicular block | CPT/HCPCS: 93010 ==

== ENCOUNTER 2024-07-21 13:49 | Outpatient (AMB) | payer MEDICARE, SELFPAY ==
[2024-07-21 13:59] VITALS: BP 130/68; PULSE 73; O2SAT 94; BMI 24.2
--- NOTE | 2024-07-21 13:59 | MHC.OFFVIS ---
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 Allergies No Known Drug Allergies [NO KNOWN DRUG ALLERGIES] Allergy (Unknown, Verified 07/21/24 14:21) NONE Medication List - Last Reconciled 07/21/24 by Caitlin Cavanaugh MD albuterol sulfate 90 mcg/actuation 2 puffs inhalation Q4-6H PRN 60 days albuterol sulfate 90 mcg/actuation 2 puffs inhalation Q6H PRN aspirin 81 mg PO DAILY atorvastatin 40 mg PO DAILY betamethasone dipropionate 0.05% appl topical BID Breo Ellipta 200-25 mcg/dose (fluticasone furoate-vilanterol) 1 ea inhalation DAILY 90 days NS fluoxetine 20 mg PO DAILY latanoprost 0.005% drps ophthalmic (eye) ofloxacin 0.3% 10 drps otic (ears) DAILY 7 days Do you need a note to return to daycare/school/sports/work: No HPI HPI Shortness of breath: Details: Mr. Kemp, is 89 years old gentleman very pleasant, very [place], comes for follow-up after almost 1 and half year. During last year he had hip fracture , which was repaired and he recovered very well. For his COPD he has been using Breo once a day and albuterol only as needed. He also uses an Acapella Acapela valve or breathing exercises and it helps to gets rid of lot of mucus . He say is he has just come for an over due follow-up visit. Otherwise there is no recent change in his breathing. He is slightly hard of hearing but he is full of humor during his conversation . [facility] Medical History Cough COPD (chronic obstructive pulmonary disease) Prostate cancer Eczema Gallstones Nocturia Kidney cysts Kidney stones Hyperlipidemia HTN (hypertension) Prostate cancer Surgical History History of prostatectomy Family History Father No problems noted. Mother No problems noted. Social History Patient Tobacco Use Status: Former Tobacco user Years Smoked: 30 years Review of Systems Const All systems reviewed & are unremarkable except as noted in HPI and below Eyes Reports no additional complaints ENT Reports Normal hearing present (Slightly impaired) Card Denies chest pain, Denies irregular heart rhythm and Denies leg edema Resp Reports as per HPI GI Reports no additional complaints Reports no additional complaints Musc Reports no additional complaints Skin/Breast Reports system reviewed and no additional complaints, except as documented Neuro Reports no additional complaints and Reports Normal hearing present (Slightly impaired) Physical Exam Vital Signs: Last Vital Signs Pulse 73 07/21/24 13:59 BP 130/68 07/21/24 13:59 Pulse Ox 94 07/21/24 13:59 Oxygen Delivery Method Room Air 07/21/24 13:59 BMI result Body Mass Index 24.2 Const General: healthy appearing (For his age he looks good), comfortable, no acute distress, alert and awake Orientation/consciousness: patient oriented x3 HEENT Head: Yes normal to inspection General nose exam: No nasal polyps present and No nasal discharge present Face and sinus: Yes sinuses nontender Mouth: oropharynx normal Throat: Yes posterior oropharynx normal Eyes General: appearance normal, both eyes and all related structures Neck Neck: Yes normal visual inspection, Yes no lymphadenopathy, Yes trachea midline and Yes no JVD Thyroid: Thyroid normal Chest Chest palpation & inspection: normal inspection of the chest, normal palpation of entire chest wall and no tenderness Resp Other: Percussion note is resonant. Breath sounds are slightly distant with prolonged expiratory phase. Both lungs are clear no wheezes rhonchi or Creps are heard Cardio Palpation: normal PMI Rate: regular rate Rhythm: regular rhythm Heart sounds: no gallops and no murmurs Peripheral pulses: Peripheral pulses 2+ throughout GI Palpation (GI): Soft to palpation, nontender, No hepatosplenomegaly present and no masses Auscultation: normal bowel sounds Back/Spine/Pelvis Thoracic/Lumbar Spine: thoracic and lumbar spine normal to inspection Skin General skin exam: no rashes or lesions noted Neuro General: patient oriented x3 and no focal motor deficits Cranial nerves: Yes Normal hearing present (Slightly impaired) Extrem General: Yes normal to inspection, Yes no clubbing, cyanosis or edema and Yes no calf tenderness Psych Appearance: grossly normal and well kempt Speech and movement: Normal speech and movement present Assessment & Plan Assessment & Plan (1) COPD (chronic obstructive pulmonary disease): Comment: SEVERE CHRONIC ,OBSTRUCTIVE PULMONARY DISEASE, BUT WELL CONTROLLED AT THIS TIME, Code(s): J44.9 - Chronic obstructive pulmonary disease, unspecified Category: Medical Plan: TX CONTINUE BREO 200-25 1 INHALATION DAILY ALBUTEROL HFA 2 PUFFS Q 4-6 HOURS ONLY P.R.N. (2) Cough: Comment: COUGH IS PART OF HIS CHRONIC OBSTRUCTIVE PULMONARY DISEASE. IT REMAINS CONTROLLED LONG HE USES BREO. USE OF ACAPELLA WELL IS HELPING TO CLEAR THE MUCUS . Code(s): R05 - Cough Category: Medical Plan: CONTINUE . THE CURRENT MEDICATIONS CONTINUE TO USE THE WELL TO GET RID OF SECRETIONS. Medications: New albuterol sulfate 90 mcg/actuation 2 puffs inhalation Q4-6H PRN 8.5 grams 4RF shortness of breath or wheezing 60 days Changed From Breo Ellipta 200-25 mcg/dose (fluticasone furoate-vilanterol) 1 ea inhalation DAILY 3 ea 11RF NS To Breo Ellipta 200-25 mcg/dose (fluticasone furoate-vilanterol) 1 ea inhalation DAILY 3 ea 3RF COPD 90 days NS Coding Level of Care Code Est Pt Level 3 (16399) Diagnoses COPD (chronic obstructive pulmonary disease) J44.9 Cough R05
--- OUTSIDE RECORDS SUMMARY | 2024-07-21 16:19 | XMS_ITS | Continuity of Care Document ---
Author Organization [place] - [facility], [facility] [address] floor Address [address] [place] [address] Care Team Providers Care Group Cio Name Role Phone JOYCELYN LEÓN Primary Care Provider Assessment Encounter Date Assessment Date Assessment LastModified by Organization Details LastModified Time 07/19/2024 07/19/2024 PROBLEM: Status post Right total hip arthroplasty for fracture performed on 03/28/24 HPI: Patient returns today for follow-up of their total hip arthroplasty. They report they have returned to most activities of daily living. The patient has no specific concerns today in the office. They have completed outpatient physical therapy. The patient has no sensation of leg length inequality. The patient has mild memory loss and presents today with his . Past family, medical, social history and review of systems has been reviewed, updated and signed by me and is located in the patient? s chart. EXAM: The patient ambulates with a non-antalgic gait. The surgical wound is well-healed. There is a negative Stinchfield test. There is minimal lateral tenderness. The patient ambulates with a single-point cane. IMAGING: Previously obtained X-rays reviewed in the office today on [facility] PACS: AP pelvis and right frog lateral show appropriate position of the patient's right total hip arthroplasty. Acetabular position is satisfactory. Stem position is satisfactory. Leg lengths appear appropriate. There is no evidence of fracture or implant failure. IMPRESSION: Status postRight total hip arthroplasty PLAN: At this point, the patient is doing extremely well following their total hip arthroplasty. I encouraged them to continue a home exercise and walking program. We discussed activity modification, dental prophylaxis, and the importance of long-term follow-up. I encouraged him to continue to work on gait and balance. I encouraged them to return to the office periodically for routine follow-up; sooner if any issues arise. I attempted to answer all of their questions today in the office. [facility] speech recognition solar photovoltaic designer software was used to create portions of this document. An attempt at proofreading has been made to minimize errors. Please call for corrections. [email or web address] Not available 07/19/2024 13:20:41 Plan of Treatment Reminders Order Date Submit Date Provider Last Modified By Organization Details Last Modified Time Details Appointments None record ed. Lab None record ed. Referral None record ed. Procedures None record ed. Surgeries None record ed. Imaging None record ed. Medication Orders None record ed. Patient TargetsNo targets recorded. Patient InstructionsNo instructions recorded. Reason for Referral None Reported. Medical Equipment None Reported. Allergies No known drug allergies Medications Name Sig Start Date Stop Date Status Note LastModified by Organization Details LastModified Time latanoprost 0.005 % eye drops INSTILL 1 DROP INTO BOTH EYES EVERY DAY AT BEDTIME active Not Available Not Available No t Available atorvastati n 40 mg tablet TAKE 1 TABLET BY MOUTH EVERY DAY active Not Available Not Available No t Available azithromyci n 250 mg tablet TAKE 2 TABLETS BY MOUTH TODAY, THEN TAKE 1 TABLET DAILY FOR 4 DAYS DIRECTED 04/15 completed Not Available Not Available Not Available prednisone 20 mg tablet TAKE 1 TABLET (20MG) BY MOUTH DAILY 07/19 completed Not Available Not Available Not Available moxifloxaci n 400 mg tablet TAKE 1 TABLET BY MOUTH EVERY DAY FOR 10 DAYS 04/15 completed Not Available Not Available Not Available amlodipine 5 mg tablet TAKE 1 TABLET BY MOUTH EVERY DAY FOR 30 DAYS active Not Available Not Available No t Available ofloxacin 0.3 % ear drops INSTILL 10 DROPS INTO THE EAR(S) DAILY FOR 7 DAYS 04/15 completed Not Available Not Available Not Available benzonatate 100 mg capsule TAKE 1 CAPSULE (100MG) BY MOUTH TWICE A DAY NEEDED COUGH 07/19 completed Not Available Not Available Not Available betamethaso ne dipropionat e 0.05 % topical cream APPLY TOPICALLY TO AFFECTED AREA NEEDED TWICE DAILY active Not Available Not Available No t Available fluoxetine 20 mg capsule TAKE 1 CAPSULE BY MOUTH EVERY DAY FOR 90 DAYS active Not Available Not Available No t Available amoxicillin 875 mg-potassiu m clavulanate 125 mg tablet TAKE 1 TABLET BY MOUTH EVERY 12 HOURS 01/21 /2025 completed Not Available Not Available Not Available moxifloxaci n 0.5 % eye drops INSTILL 1 DROP INTO RIGHT EYE 3 TIMES A DAY FOR 7 DAYS 04/15 completed Not Available Not Available Not Available levalbutero l HFA 45 mcg/actuati on aerosol inhaler INHALE 1 PUFF EVERY 6 HOURS NEEDED FOR 30 DAYS active Not Available Not Available No t Available Breo Ellipta 200 mcg-25 mcg/dose powder for inhalation INHALE 1 PUFF ONCE DAILY active Not Available Not Available No t Available Vitals Date Recorded Body height Body mass index (BMI) Body weight Provider Name and Address Organization Details Last Updated DateTime 07/19/2024 167.64 cm 26.5 kg/m2 67610.15 g Caitlin Khalil [facility] 07/19/2024 12:56:26 Social History Question Answer Notes LastModified by Organizat ion Details LastModified Time Tobacco Smoking Status Former Smoker SAMI gonzalez [facility] 04/15/2024 10:44:03 What Is Your Level Of Alcohol Consumption? None Information not available 04/15/2024 When Did You Quit Smoking? 16+yearssin celastcigar ette Information not available 04/15/2024 Do You Use Any Illicit Or Recreational Drugs? No Information not available 04/15/2024 Do You Or Have You Ever Used Any Other Forms Of Tobacco Or Nicotine? No Information not available 04/15/2024 Sex: Unknown Functional Status None recorded. Mental Status None recorded. Family History Nothing Reported. Medical History Condition Response Anxiety/Depression Y COPD Y Pacemaker Y Hypertension Y Past Encounters Encounter ID Performer Location Encounter Start Date Encounter Closed Date Diagnosis/Indication Diagnosis SNOMED-CT Code Diagnosis ICD10 Code Diagnosis Note [id number] MD [facility] [address] [place] [address] 07/19/2024 12:52:57 07/19/2024 13:20:56 History of total replacement of right hip joint 1503201911 32165 Z96.641 Health Concerns Section Related Observation LastModified by Organization Detai yasemin LastModified Time None Recorded Concern Status LastModified by Organization Details LastModified Time None Recorded Payers Encounter Date Sequence Insurance Name Policy Number Policy Evans Covered Member ID Evans Member ID Guarantor Name 07/19/2024 2 [place]LE[place] [id number] Mike Kemp [id number] Mike Kemp 07/19/2024 1 MEDICARE [place]: [facility] Mike Kemp [id number] Mike Kemp
== END 2024-07-21 14:23 | disposition home or self-care (01) ==
PROVIDERS: PCP Internal Medicine; Visit Provider Internal Medicine
DX: J44.9 Chronic obstructive pulmonary disease, unspecified (principal); R05.9 Cough, unspecified
CPT/HCPCS: 99213

== ENCOUNTER → 2024-07-21 13:49 | Outpatient (BNVA) | payer MEDICARE, SELFPAY | PROVIDERS: PCP Internal Medicine; Visit Provider Internal Medicine | DX: J44.9 Chronic obstructive pulmonary disease, unspecified (principal); R05.9 Cough, unspecified | CPT/HCPCS: 99212 ==

== ENCOUNTER 2024-09-21 11:03 | Outpatient (AMB) | payer MEDICARE, SELFPAY ==
--- NOTE | 2024-09-21 11:12 | MHC.PC.OV ---
Vital Signs 09/21/24 11:27 Height 5 ft 5 in Weight 150 lb BMI 25.0 BP 172/78 H Pulse 70 Pulse Source Pulse Oximeter Temp 97.5 F Pulse Oximetry (%) 92 Intake Visit Reasons: 3 month follow up Intake Note: dementia at night Allergies No Known Drug Allergies [NO KNOWN DRUG ALLERGIES] Allergy (Unknown, Verified 09/21/24 11:58) NONE Medication List - Last Reconciled 09/21/24 by Tita Colorado PA-C albuterol sulfate 90 mcg/actuation 2 puffs inhalation Q4-6H PRN 60 days amlodipine 10 mg PO DAILY amoxicillin-pot clavulanate 875-125 mg 1 tab PO Q12H aspirin 81 mg PO DAILY atorvastatin 40 mg PO DAILY betamethasone dipropionate 0.05% appl topical BID Breo Ellipta 200-25 mcg/dose (fluticasone furoate-vilanterol) 1 ea inhalation DAILY 90 days NS fluoxetine 20 mg PO DAILY latanoprost 0.005% drps ophthalmic (eye) [facility] Medical History (Updated 09/21/24 @ 13:09 by Tita Colorado PA-C) Overweight with body mass index (BMI) of 25 to 25.9 in adult Basal cell carcinoma of ear Glucose intolerance Sciatica Lumbar herniated disc Osteoarthritis History of basal cell carcinoma Mucopurulent chronic bronchitis Obstructive airway disease Mild cognitive impairment Mild hypercholesterolemia Coronary artery disease SSS (sick sinus syndrome) Cough COPD (chronic obstructive pulmonary disease) Prostate cancer Eczema Gallstones Nocturia Kidney cysts Kidney stones Hyperlipidemia HTN (hypertension) Prostate cancer Surgical History History of colonoscopy History of cholecystectomy History of herniorrhaphy History of right hip replacement History of prostatectomy Family History Father No problems noted. Mother No problems noted. Social History Patient Tobacco Use Status: Former Tobacco user Years Smoked: 30 years Questionnaire PHQ-9 Over the last 2 weeks, how often have you been bothered by any of the following problems? 1. Little interest or pleasure in doing things: more than half the days 2. Feeling down, depressed, or hopeless: more than half the days 3. Trouble falling or staying asleep, or sleeping too much: not at all 4. Feeling tired or having little energy: more than half the days 5. Poor appetite or overeating: not at all 6. Feeling bad about yourself - or that you are a failure or have let yourself or your family down: more than half the days 7. Trouble concentrating on things, such as reading the newspaper or watching television: nearly every day 8. Moving or speaking so slowly that other people could have noticed. Or the opposite - being so fidgety or restless that you have been moving around a lot more than usual: several days 9. Thoughts that you would be better off or of hurting yourself in some way: not at all Total score: 12 Depression Screening Interpretation: Positive Depression Screening Follow-up: Existing condition and In treatment Depression Screening Done: Yes 61493 - PHQ-9 Billing: Yes Source: Developed by Drs. Jose Mederos, Erica Bailey, Mika Kern and colleagues, with an educational krista from [employer] Thrive Questionnaire What is your living situation today?: I have a steady place to live Within the past 12 months, did the food you bought not last and you didn't have the money to get more?: Never true Within the past 12 months, did you worry whether your food would run out before you got money to buy more?: Never true Do you have trouble paying for medicines?: No Do you have trouble getting transportation to medical appointments?: No Do you have trouble paying your heating and electricity bill?: No Do you have trouble taking care of your child, family member or friend?: No Do you have trouble with day-to-day activities such as bathing, preparing meals, shopping, managing finances, etc.?: Yes Are you currently unemployed and looking for a job?: No Are you interested in more education?: No THRIVE Score: 0 NEVAEH-7 AMB Questionnaire NEVAEH-7 Feeling nervous, anxious, or on edge: 2 = More than half the days Not being able to stop or control worryin = Not at all Worrying too much about different things: 2 = More than half the days Trouble relaxin = Not at all Being so restless that it is hard to sit still: 0 = Not at all Becoming easily annoyed or irritable: 2 = More than half the days Feeling afraid as if something awful might happen: 0 = Not at all Total NEVAEH-7 score (0-4 normal; 5-9 mild; 10-14 moderate; 15-21 severe): 6 Source: Developed by Drs. Jose Mederos, Erica Bailey, Mika Kern and colleagues, with an educational krista from [employer] NEVAEH-7 Assessment Billing NEVAEH-7 Assessment Tool: NEVAEH-7 Assessment 32254 Physical exam (Primary Care) Vital Signs: Last Vital Signs Temp 97.5 F 09/21/24 11:27 Pulse 70 09/21/24 11:27 BP 172/78 H 09/21/24 11:27 Pulse Ox 92 09/21/24 11:27 Care Plan Goal for BP management: <130/80 patient's amlodipine will be increased from 5 mg to 10 mg. Patient to return in 1 month for blood pressure check. BMI result Body Mass Index 25.0 BMI Assessment/Plan discussion: High BMI High, discussed plan: lifestyle, weight reduction, dietary, physical activity and alcohol moderation Tobacco/Smoking Status: Tobacco use Status Patient Tobacco Use Status Former Tobacco user 09/21/24 11:14 PHQ-9: PHQ-9 Score PHQ-9: Total score 12 09/21/24 11:59 Depression Screening Interpretation: Positive Depression Screening Follow-up: Existing condition and In treatment Coding Level of Care Code Est Pt Level 4 (66552) Complex EM visit Add On G2211 Diagnoses Mild cognitive impairment G31.84 Mild hypercholesterolemia E78.00 Coronary artery disease I25.10 SSS (sick sinus syndrome) I49.5 Hyperlipidemia E78.5 HTN (hypertension) I10 Prostate cancer C61 COPD (chronic obstructive pulmonary disease) J44.9 Cough R05 Basal cell carcinoma of ear C44.211 Overweight with body mass index (BMI) of 25 to 25.9 in adult E66.3; Z68.25 Additional Codes NEVAEH-7 Assessment Billing - NEVAEH-7 Assessment Tool: NEVAEH-7 Assessment 97871 ([id number]) PHQ-9 - 52667 - PHQ-9 Billing: Yes ([id number]) Assessment & Plan Assessment & Plan (1) Mild cognitive impairment: Code(s): G31.84 - Mild cognitive impairment of uncertain or unknown etiology Category: Medical Plan: Observation of cognition status will carry on with consideration of neurology consult if worsening occurs. (2) Mild hypercholesterolemia: Code(s): E78.00 - Pure hypercholesterolemia, unspecified Category: Medical Plan: Pt to continue atorvastatin 40 mg daily. Condition is chronic and stable continue to monitor. (3) Coronary artery disease: Code(s): I25.10 - Atherosclerotic heart disease of [place] coronary artery without angina pectoris Category: Medical Plan: Patient to continue aspirin 81 mg daily, atorvastatin 40 mg daily, amlodipine 10 mg daily. Condition is chronic and stable continue to monitor. (4) SSS (sick sinus syndrome): Comment: s/p PPP Code(s): I49.5 - Sick sinus syndrome Category: Medical Plan: Patient to continue aspirin 81 mg daily, atorvastatin 40 mg daily, amlodipine 10 mg daily. Condition is chronic and stable continue to monitor. (5) Hyperlipidemia: Code(s): E78.5 - Hyperlipidemia, unspecified Category: Medical Plan: Patient to continue aspirin 81 mg daily, atorvastatin 40 mg daily, amlodipine 10 mg daily. Condition is chronic and stable continue to monitor. (6) HTN (hypertension): Code(s): I10 - Essential (primary) hypertension Category: Medical Plan: Blood pressure was noted to be elevated today therefore amlodipine was increased from 5 mg to 10 mg daily. Patient to return in 1 month for blood pressure check. Condition is chronic and stable continue to monitor. (7) Prostate cancer: Comment: Diagnosed in 2000 Initial treatment with radical prostatectomy Subsequently has remained on hormone manipulation PSA 12/17 < 0.1, 10/18 <0.1, 06/19 <0.1 last GnRH 12/17 Therapeutic plan check PSA every 6 months Code(s): C61 - Malignant neoplasm of prostate Category: Medical Plan: Diagnosed in 2000 Initial treatment with radical prostatectomy PSA 12/17 < 0.1, 10/18 <0.1, 06/19 <0.1 last GnRH 12/17 Therapeutic plan check PSA every 6 months Patient being followed by Dr. [facility] was last seen in 2022. They recommended checking PSA every 6 months. Will continue to assess patient's PSA. Condition is chronic and stable continue to monitor (8) COPD (chronic obstructive pulmonary disease): Comment: SEVERE CHRONIC ,OBSTRUCTIVE PULMONARY DISEASE, BUT WELL CONTROLLED AT THIS TIME, Code(s): J44.9 - Chronic obstructive pulmonary disease, unspecified Category: Medical Plan: Patient being followed by pulmonology. Patient to continue albuterol inhaler, Breo. Condition is chronic and stable continue to monitor. (9) Cough: Comment: COUGH IS PART OF HIS CHRONIC OBSTRUCTIVE PULMONARY DISEASE. IT REMAINS CONTROLLED LONG HE USES BREO. USE OF ACAPELLA WELL IS HELPING TO CLEAR THE MUCUS . Code(s): R05 - Cough Category: Medical Plan: Patient being followed by pulmonology. Patient to continue albuterol inhaler, Breo. Condition is chronic and stable continue to monitor. (10) Basal cell carcinoma of ear: Code(s): C44.211 - Basal cell carcinoma of skin of unspecified ear and external auricular canal Category: Medical Plan: Patient being followed by [place] [facility]. Is scheduled for Mohs procedure in October. Condition is chronic and stable continue to monitor. (11) Overweight with body mass index (BMI) of 25 to 25.9 in adult: Code(s): E66.3 - Overweight; Z68.25 - Body mass index [BMI] 25.0-25.9, adult Category: Medical Plan: Patient to improve his diet and exercise regimen. Condition is chronic and stable. Will continue to monitor. Plan Plan Patient was informed and verbally consented to the use of an ambient scribe for clinic note documentation during this visit. 1. Mild cognitive impairment of uncertain or unknown etiology G31.84 Observation of cognition status will carry on with consideration of neurology consult if worsening occurs. 2. Sciatica Manage back pain with current analgesic regimen and physical therapy if symptoms intensify. 3. Chronic Obstructive Pulmonary Disease Continues with Breo; instructed to use albuterol inhaler more frequently if symptoms increase. 4. Basal Cell Carcinoma Of Ear Scheduled for Mohs surgery on November 15; discussions completed with patient and spouse regarding the procedure. 5. Essential Hypertension Due to continued elevated readings, amlodipine will be increased to 10 mg daily. Regular blood pressure monitoring and a follow-up in one month have been advised. Discussion Notes I discussed the current management of hypertension with the patient and his , explaining the rationale for increasing amlodipine to 10 mg due to suboptimal control with the current dose. Potential side effects were reviewed, and the importance of consistent blood pressure monitoring was stressed. I also addressed ongoing COPD management, emphasizing increased use of the albuterol inhaler if necessary, while noting the plan for Mohs surgery for basal cell carcinoma. Cognitive changes and episodes of irritability were discussed, with reassurance that these symptoms are mild and common with aging but will be monitored. The patient successfully engaged in the discussion and understood the follow-up plan, including further lab work and reassessment. Orders: Orders Comprehensive [place]. Panel Fast 09/21/24 Z. - Encounter for general adult medical examination without abnormal findings Hemoglobin A1c 09/21/24 Z. - Encounter for general adult medical examination without abnormal findings TSH reflex Free T4 09/21/24. - Encounter for general adult medical examination without abnormal findings Vitamin D 25-OH Total 09/21/24. - Encounter for general adult medical examination without abnormal findings PSA,Total (Free>4and<10) 09/21/24 Z. - Encounter for general adult medical examination without abnormal findings Complete Blood Count Auto Diff 09/21/24 Z. - Encounter for general adult medical examination without abnormal findings Erythrocyte Sedimentation Rate 09/21/24. - Encounter for general adult medical examination without abnormal findings Liver Panel 09/21/24. - Encounter for general adult medical examination without abnormal findings Lipid Panel 09/21/24. - Encounter for general adult medical examination without abnormal findings Magnesium 09/21/24 Z. - Encounter for general adult medical examination without abnormal findings C Reactive Protein 09/21/24 Z. - Encounter for general adult medical examination without abnormal findings Vitamin B12 and Folate 09/21/24 Z00. - Encounter for general adult medical examination without abnormal findings Medications: New amlodipine 10 mg PO DAILY 30 tabs 0RF Patient Instructions: Patient Instructions - Increase amlodipine to 10 mg daily for blood pressure management. - Continue using Breo for COPD and increase albuterol use as needed for symptoms. - Monitor blood pressure regularly and record readings two hours after medication. - Obtain fasting blood work before the next appointment. - Attend Mohs surgery appointment on November 15 for skin cancer treatment. - Monitor cognitive symptoms and report any significant memory changes or increased irritability. - Follow up in one month to reassess blood pressure and overall health. Scribe Plan - Not visible on output: History of Present Illness The patient is an 89-year-old male presenting for 3 month follow-up for his chronic medical conditions with concerns related to hypertension management. His elevated blood pressure today highlights ongoing control challenges despite current therapy with amlodipine. He has not been documented to be on hydrochlorothiazide recently, which was part of the previous treatment plan along with metoprolol. The patient's medical history is significant for coronary artery disease, maintained with aspirin therapy and previously diagnosed sinus node dysfunction managed with pacemaker insertion. COPD management involves Breo, with intermittent shortness of breath not worsening beyond baseline. He has a history of prostate cancer treated with prostatectomy, osteoarthritis managed conservatively, eczema treated with topical ointments, and ongoing skin cancer issues with a scheduled Mohs surgery for basal cell carcinoma on his ear. Chronic back pain due to lumbar disc disease presents intermittently and is associated with sciatica. Dysphagia is occasionally reported, and a past cholecystectomy was performed in 2015. He recently had a right hip arthroplasty in February. Mild cognitive impairment has been noted, with periods of irritability primarily noted in the evenings, although no severe memory issues appear evident currently. Social History - The patient lives with his and they maintain independent living arrangements. - There are no additional support devices utilized, apart from a cane for ambulation. - There is no mention of alcohol or tobacco use. - His dietary intake reportedly remains stable, although there is a noted weight loss since a recent fall. - He engages in moderate daily activity. - His assists in medication management using a weekly pill organizer. Review of Systems - Constitutional: Reports weight loss. - Cardiovascular: Reports no chest pain or leg swelling. - Respiratory: Reports shortness of breath consistent with COPD, no change from baseline. - Gastrointestinal: Denies abdominal pain. - Neurological: Denies dizziness; reports mild cognitive impairment and intermittent irritability. - Musculoskeletal: Reports chronic back pain, denies new joint pains. - Integumentary: Reports eczema, actively managed with topical ointments. - Hematologic/Lymphatic: No abnormal bleeding reported. - Psychiatric: Reports anxiety/depression, managed with fluoxetine. - Endocrine: Reports glucose intolerance, no diabetes mellitus diagnosis. Physical Exam Appearance: Alert. Oriented. No acute distress. Head: Normal external exam. Normocephalic. Atraumatic. Eyes: Pupils are equal, round, and reactive to light. Extraocular movements intact. Conjunctiva and sclera normal. Eyelids normal. Ears: External auditory canal normal. Tympanic membranes normal. Throat: Pharynx normal. Uvula midline. Moist mucous membranes. Neck: Normal inspection. Neck supple. Full range of motion. No adenopathy. Thyroid Normal. No meningeal signs. No neck mass noted. Cardiovascular: Normal heart rate and rhythm. Heart sound normal. No murmurs noted. Pulses normal throughout. Blood pressure was elevated today at 172/78, later measured at 140/80. Respiratory: No respiratory distress. Painless inspiration. Breath sounds normal. No wheezes/rales/rhonchi noted. Chest nontender. No accessory muscle usage noted or decreased air movement noted. Shortness of breath noted, related to COPD. Abdomen: Soft and nontender. Bowel sounds normal in all 4 quadrants. No distention noted. No organomegaly noted. No visible injury noted. Back: No costovertebral angle tenderness. Full range of motion noted. Skin: Skin warm and dry. Normal skin color. Normal skin turgor. No rashes/lesions/lacerations noted. Very dry skin observed. Extremities: No lower extremity edema. Extremities exhibit normal range of motion. Extremities nontender. Neuro: Oriented. No motor deficit. No sensory deficit. Reflexes normal. Mild cognitive impairment and dementia noted, with intermittent irritability. Results - Labs: Awaiting results for CBC, liver panel, cholesterol panel, thyroid function, magnesium, and comprehensive metabolic panel as ordered. - Procedures: Scheduled for Mohs surgery on November 15 for basal cell carcinoma.
[2024-09-21 11:27] VITALS: BP 172/78; PULSE 70; TEMP 36.4; O2SAT 92; BMI 25.0
== END 2024-09-21 11:53 | disposition home or self-care (01) ==
LOC: HO.HMCSH 11:04
PROVIDERS: PCP Internal Medicine; Visit Provider Physician Assistant Medical
DX: G31.84 Mild cognitive impairment of uncertain or unknown etiology (principal); E78.00 Pure hypercholesterolemia, unspecified; I25.10 Atherosclerotic heart disease of native coronary artery without angina pectoris; I49.5 Sick sinus syndrome; E78.5 Hyperlipidemia, unspecified; I10 Essential (primary) hypertension; C61 Malignant neoplasm of prostate; J44.9 Chronic obstructive pulmonary disease, unspecified; R05.9 Cough, unspecified; C44.211 Basal cell carcinoma of skin of unspecified ear and external auricular canal; E66.3 Overweight; Z68.25 Body mass index [BMI] 25.0-25.9, adult

== ENCOUNTER → 2024-09-21 11:03 | Outpatient (BNVA) | payer MEDICARE, SELFPAY | PROVIDERS: PCP Internal Medicine; Visit Provider Physician Assistant Medical | DX: G31.84 Mild cognitive impairment of uncertain or unknown etiology (principal); E78.00 Pure hypercholesterolemia, unspecified; I25.10 Atherosclerotic heart disease of native coronary artery without angina pectoris; I49.5 Sick sinus syndrome; E78.5 Hyperlipidemia, unspecified; I10 Essential (primary) hypertension; C61 Malignant neoplasm of prostate; J44.9 Chronic obstructive pulmonary disease, unspecified | CPT/HCPCS: 96127; 99212 ==

== ENCOUNTER 2024-10-11 09:54 | Outpatient (REF) | payer MEDICARE, SELFPAY ==
[2024-10-11 13:31] LABS: MANUAL DIFF FLAG NO
[2024-10-11 13:36] LABS: Basophils Absolute Auto 0.1 X10*3/uL (0.0-0.2); Basophils Percent Auto 0.6 % (0-2); Eosinophils Absolute Auto 0.4 X10*3/uL (0.0-0.4); Eosinophils Percent Auto 3.6 % (0-4); Hematocrit 41.2 % (42.0-52.0); Hemoglobin 13.3 g/dl (14.0-18.0); Imm Gran Abs Auto 0.03 X10*3/uL (0.00-0.03); Imm Gran Pct Auto 0.3 % (0.0-0.4); Lymphocytes Absolute Auto 4.1 X10*3/uL (1.2-4.9); Lymphocytes Percent Auto 39.1 % (20-40); Mean Corpuscular HGB Conc 32.3 g/dl (31.0-36.0); Mean Corpuscular Hemoglobin 28.1 pg (27.0-33.0); Mean Corpuscular Volume 86.9 fL (80.0-98.0); Mean Platelet Volume 9.2 fL (9.4-12.4); Monocytes Absolute Auto 0.7 X10*3/uL (0.1-1.2); Monocytes Percent Auto 6.8 % (2-11); Neutrophils Absolute Auto 5.2 x10*3/uL (2.0-8.3); Neutrophils Percent Auto 49.6 % (45-73); Platelet Count 334 X10*3/uL (160-400); Red Blood Count 4.74 X10*6/uL (4.60-5.80); Red Cell Distribution Width 15.6 % (11.0-16.0); White Blood Count 10.5 X10*3/uL (4.8-10.8)
[2024-10-11 13:43] LABS: Estimated Average Glucose 146 mg/dL; Hemoglobin A1C 175.8309 umol/L; Hemoglobin A1c % 6.7 % (<6.0); Total Hemoglobin (HGBA1C) 3506.7493 umol/L
[2024-10-11 14:17] LABS: Erythrocyte Sedimentation Rate 17 MM/HR (0-15)
[2024-10-11 14:25] LABS: Alanine Aminotransferase 9 U/L (0-40); Albumin Level 3.9 g/dL (3.5-5.0); Anion Gap 11 (12-20); Aspartate Amino Transferase 28 U/L (5-37); Bilirubin Direct 0.2 mg/dL (0.0-0.5); Bilirubin Total 0.6 mg/dL (0.0-1.0); Blood Urea Nitrogen 32 mg/dL (9-16); C Reactive Protein 0.18 mg/dL (< or = 0.50); Calcium 9.8 mg/dL (8.4-10.2); Carbon Dioxide 26 mmol/L (22-29); Chloride 105 mmol/L (96-108); Cholesterol 168 mg/dL (<200); Estimated Glomerular Filt Rate > 60; Glucose Fasting 111 mg/dL (60-99); HDL Cholesterol 43 mg/dL (>40); LDL Cholesterol Calculated 99 mg/dL (<100); Magnesium 2.1 mg/dL (1.6-2.6); Potassium 4.1 mmol/L (3.3-5.1); Sodium 138 mmol/L (135-145); TSH reflex Free T4 2.72 uIU/mL (0.32-4.0); Total Protein 7.6 g/dL (6.5-8.0); Triglycerides 133 mg/dL (<150); Vitamin D 25-OH Total 34.6 ng/mL (>30)
[2024-10-11 14:27] LABS: PSA,Total (Free>4and<10) < 0.10 ng/mL (0.00-4.00)
[2024-10-11 14:29] LABS: Folate 9.3 ng/mL (> or = 4.0); Vitamin B12 475 pg/mL (200-900)
[2024-10-11 17:22] LABS: Alkaline Phosphatase 69 U/L (39-117)
== END 2024-10-11 09:55 | disposition home or self-care (01) ==
LOC: HO.HMGCLDS 09:54
PROVIDERS: PCP Internal Medicine; Visit Provider Physician Assistant Medical
DX: Z00.00 Encounter for general adult medical examination without abnormal findings (principal); Z12.5 Encounter for screening for malignant neoplasm of prostate; Z13.1 Encounter for screening for diabetes mellitus; Z13.29 Encounter for screening for other suspected endocrine disorder; Z13.0 Encounter for screening for diseases of the blood and blood-forming organs and certain disorders involving the immune mechanism
CPT/HCPCS: 36415; 80053; 80061; 80076; 82248; 82306; 82607; 82746; 83036; 83735; 84153; 84443; 85025; 85652; 86140

== ENCOUNTER 2024-10-18 11:04 | Outpatient (AMB) | payer MEDICARE, SELFPAY ==
--- NOTE | 2024-10-18 11:04 | MHC.PC.OV ---
Vital Signs 10/18/24 11:29 Height 5 ft 5 in Weight 156 lb BMI 26.0 BP 144/72 H Blood Pressure Location Rt brachial Pulse 65 Pulse Source Pulse Oximeter Temp 97.1 F Pulse Oximetry (%) 91 L Intake Visit Reasons: 1 month f/u HTN Intake Note: No other issues Allergies No Known Drug Allergies [NO KNOWN DRUG ALLERGIES] Allergy (Unknown, Verified 10/18/24 11:53) NONE latex Allergy (Uncoded 10/18/24 11:53) Rash Medication List - Last Reconciled 10/18/24 by Tita Colorado PA-C albuterol sulfate 90 mcg/actuation 2 puffs inhalation Q4-6H PRN 60 days amlodipine 10 mg PO DAILY amoxicillin-pot clavulanate 875-125 mg 1 tab PO Q12H aspirin 81 mg PO DAILY atorvastatin 40 mg PO DAILY betamethasone dipropionate 0.05% appl topical BID Breo Ellipta 200-25 mcg/dose (fluticasone furoate-vilanterol) 1 ea inhalation DAILY 90 days NS fluoxetine 20 mg PO DAILY latanoprost 0.005% drps ophthalmic (eye) metformin ER 500 mg PO DAILY HPI 1 month f/u HTN HPI Details The patient is an 89-year-old male presenting for a blood pressure check along with the management of newly recognized diabetes mellitus, type 2. The patient has shown prior blood pressure readings located in the 170s/70s but improved to the 140s/70s with Amlodipine 10 mg usage over the past month. Currently, despite some persistent elevations, the general trend remains on the positive side with the treatment being tolerated. Concomitantly, the patient was diagnosed with diabetes mellitus, type 2, following observation of elevated HbA1c values at 6.7%, along with a historical glucose reading around 150 mg/dL. The patient describes a dietary tendency towards high sugar intake, notably sweets. There are no mentioned symptoms directly linked to hyperglycemia such as acute visual changes, unexpected weight loss, or fatigue, but his sweets consumption has been discussed as a contributing factor to his glucose control issues. Social History - Prefers a diet with high sugar content, particularly sweets and candies. - Has a dog and partakes in shared responsibilities with his spouse. - Engages in discussions about reducing sugar intake as part of managing diabetes. - Reports no alcohol consumption but mentions drinking non-alcoholic beverages like coffee and occasionally scotch, for hydration. - Receives encouragement to balance high sugar foods intake with increased water consumption. FOR[facility]LY [facility], [facility] Medical History New onset type 2 diabetes mellitus Overweight with body mass index (BMI) of 25 to 25.9 in adult Basal cell carcinoma of ear Glucose intolerance Sciatica Lumbar herniated disc Osteoarthritis History of basal cell carcinoma Mucopurulent chronic bronchitis Obstructive airway disease Mild cognitive impairment Mild hypercholesterolemia Coronary artery disease SSS (sick sinus syndrome) Cough COPD (chronic obstructive pulmonary disease) Prostate cancer Eczema Gallstones Nocturia Kidney cysts Kidney stones Hyperlipidemia HTN (hypertension) Prostate cancer Surgical History History of colonoscopy History of cholecystectomy History of herniorrhaphy History of right hip replacement History of prostatectomy Family History Father No problems noted. Mother No problems noted. Social History Patient Tobacco Use Status: Former Tobacco user Years Smoked: 30 years Questionnaire PHQ-9 Over the last 2 weeks, how often have you been bothered by any of the following problems? 1. Little interest or pleasure in doing things: more than half the days 2. Feeling down, depressed, or hopeless: more than half the days 3. Trouble falling or staying asleep, or sleeping too much: not at all 4. Feeling tired or having little energy: more than half the days 5. Poor appetite or overeating: not at all 6. Feeling bad about yourself - or that you are a failure or have let yourself or your family down: more than half the days 7. Trouble concentrating on things, such as reading the newspaper or watching television: nearly every day 8. Moving or speaking so slowly that other people could have noticed. Or the opposite - being so fidgety or restless that you have been moving around a lot more than usual: several days 9. Thoughts that you would be better off or of hurting yourself in some way: not at all Total score: 12 Depression Screening Interpretation: Positive Depression Screening Follow-up: Existing condition and In treatment Depression Screening Done: Yes 54864 - PHQ-9 Billing: Yes Source: Developed by Drs. Jose Mederos, Erica Bailey, Mika Kern and colleagues, with an educational krista from [employer]. Thrive Questionnaire What is your living situation today?: I have a steady place to live Within the past 12 months, did the food you bought not last and you didn't have the money to get more?: Never true Within the past 12 months, did you worry whether your food would run out before you got money to buy more?: Never true Do you have trouble paying for medicines?: No Do you have trouble getting transportation to medical appointments?: No Do you have trouble paying your heating and electricity bill?: No Do you have trouble taking care of your child, family member or friend?: No Do you have trouble with day-to-day activities such as bathing, preparing meals, shopping, managing finances, etc.?: Yes Are you currently unemployed and looking for a job?: No Are you interested in more education?: No THRIVE Score: 0 NEVAEH-7 AMB Questionnaire NEVAEH-7 Feeling nervous, anxious, or on edge: 2 = More than half the days Not being able to stop or control worryin = Not at all Worrying too much about different things: 2 = More than half the days Trouble relaxin = Not at all Being so restless that it is hard to sit still: 0 = Not at all Becoming easily annoyed or irritable: 2 = More than half the days Feeling afraid as if something awful might happen: 0 = Not at all Total NEVAEH-7 score (0-4 normal; 5-9 mild; 10-14 moderate; 15-21 severe): 6 Source: Developed by Drs. Jose Mederos, Mika Graves and colleagues, with an educational krista from [employer]. NEVAEH-7 Assessment Billing NEVAEH-7 Assessment Tool: NEVAEH-7 Assessment 65115 Review of Systems Const Details: - Cardiovascular: Reports no chest pain, leg swelling. - Respiratory: Reports chronic cough attributed to COPD. - Gastrointestinal: Denies abdominal pain. - Neurological: Denies dizziness. - General: Reports dry skin. Physical exam (Primary Care) Vital Signs: Last Vital Signs Temp 97.1 F 10/18/24 11:29 Pulse 65 04/22/25 11:29 BP 144/72 H 10/18/24 11:29 Pulse Ox 91 L 10/18/24 11:29 Care Plan Goal for BP management: <130/90 patient to continue metoprolol 10 mg daily BMI result Body Mass Index 26.0 BMI Assessment/Plan discussion: High BMI High, discussed plan: lifestyle, weight reduction, dietary, physical activity, alcohol moderation and other Tobacco/Smoking Status: Tobacco use Status Patient Tobacco Use Status Former Tobacco user 10/18/24 11:05 PHQ-9: PHQ-9 Score PHQ-9: Total score 12 10/18/24 11:32 Depression Screening Interpretation: Positive Depression Screening Follow-up: Existing condition and In treatment Const Other: Appearance: Alert. Oriented X3. No acute distress. Head: Normal external exam. Normocephalic. Atraumatic. Eyes: Pupils are equal, round, and reactive to light. Extraocular movements intact. Conjunctiva and sclera normal. Eyelids normal. Throat: Pharynx normal. Uvula midline. Moist mucous membranes. Neck: Normal inspection. Neck supple. Full range of motion. Cardiovascular: Normal heart rate and rhythm. Heart sound normal. No murmurs noted. Pulses normal throughout. Respiratory: No respiratory distress. Painless inspiration. Breath sounds normal. No wheezes/rales/rhonchi noted. Chest nontender. No accessory muscle usage noted or decreased air movement noted. Back: No costovertebral angle tenderness. Full range of motion noted. Skin: Skin warm and dry. Normal skin color. Very dry skin noted. Normal skin turgor. No rashes/lesions/lacerations noted. Extremities: No lower extremity edema. Extremities exhibit normal range of motion. Neuro: Oriented. Results Reviewed Results Reviewed: - Labs: HbA1c 6.7% - Blood glucose approx. 150 mg/dL Coding Level of Care Code Est Pt Level 3 (84489) Complex EM visit Add On G2211 Diagnoses New onset type 2 diabetes mellitus E11.9 HTN (hypertension) I10 Additional Codes NEVAEH-7 Assessment Billing - NEVAEH-7 Assessment Tool: NEVAEH-7 Assessment 75984 ([id number]) PHQ-9 - 64465 - PHQ-9 Billing: Yes ([id number]) Assessment & Plan Assessment & Plan (1) New onset type 2 diabetes mellitus: Code(s): E11.9 - Type 2 diabetes mellitus without complications Category: Medical Plan: Metformin initiated with dietary recommendations provided. Follow-up in one month for efficacy and side effect review. Condition is new in stable will continue to monitor. (2) HTN (hypertension): Code(s): I10 - Essential (primary) hypertension Category: Medical Plan: Blood pressure is better managed with Amlodipine; further medication adjustments were deferred. Monitoring continues with re-evaluation scheduled in one month. Condition is chronic and stable will continue to monitor. Plan Plan Patient was informed and verbally consented to the use of an ambient scribe for clinic note documentation during this visit. 1. Diabetes Mellitus, Type 2 Metformin initiated with dietary recommendations provided. Follow-up in one month for efficacy and side effect review. 2. Essential Hypertension Blood pressure is better managed with Amlodipine; further medication adjustments were deferred. Monitoring continues with re-evaluation scheduled in one month. I discussed with the patient his recent diabetes diagnosis, emphasizing the importance of lifestyle modification, especially in reducing high sugar intake. We reviewed the purpose and potential gastrointestinal side effects of Metformin, ensuring understanding and addressing any concerns about starting this medication. Additionally, we agreed to monitor his blood pressure closely at home, aiming for assessments three times a week to minimize stress. Follow-up has been arranged for one month to reassess the effectiveness of the intervention and evaluate for any potential side effects or complications. Medications: New metformin ER 500 mg PO DAILY 90 tabs 1RF E11.9 - Type 2 diabetes mellitus without complications Patient Instructions: - Monitor your blood pressure three days a week. - Continue taking Amlodipine as prescribed. - Start Metformin 500 mg extended-release once daily; watch for any stomach issues. - Cut down on sweets and sugary drinks. - Try to drink water before and after consuming something sweet. - Return for follow-up in one month or sooner if you experience troubling side effects.
[2024-10-18 11:29] VITALS: BP 144/72; PULSE 65; TEMP 36.2; O2SAT 91; BMI 26.0
--- OUTSIDE RECORDS SUMMARY | 2024-10-18 13:14 | XMS_ITS | Data Portability ---
Author Organization [facility], [facility] Address [address] [place] [address] Care Team Providers Care Kier Hand Name Role Phone JOYCELYN LEÓN Primary Care Provider [phone] Assessment Encounter Date Assessment Date Assessment LastModified [...] X-rays reviewed in the office today on [facility] P[facility]: AP pelvis and right frog lateral [...] of their questions today in the office. [facility] speech recognition tearoom host/hostess software was used to create portions of this document. An attempt at proofreading has been made to minimize errors. Please call for corrections. [email or web address] Not available 07/19/2024 13:20:41 Plan of Treatment Reminders Order Date Submit Date Provider Last Modified By Organization Details Last Modified Time Details Appointments None record ed. Lab None record ed. Referral None record ed. Procedures None record ed. Surgeries None record ed. Imaging XR, hip + pelvis , unilat eral, 2 or 3 view - rm 216 2nd PO RTHR 4 K 024 04/28/20 24 [facility], [address], [address], [place], [address], 4 11:17:16 XR, hip + pelvis , unilat eral, 2 or 3 view - RM 221 1st PO RTHR 4 [facility] 024 04/15/20 24 [facility], [address], [address], [place], [address], 4 08:01:44 Medication Orders None record ed. Patient TargetsNo targets recorded. Patient InstructionsNo instructions recorded. Reason for Referral None Reported. Results Created Date Observation Date Name Description Value Unit Range Abnormal Flag Note LastModifiedBy Organization Detail LastModifiedTime 04/15/20 24 04/15/2024 XR, hip + pelvi s, unila teral , 2 or 3 view http:/ [email or web address] ?Encry pted=s hAaTro YD8dLq bEUv6g %2BXZw aYqtaq 0bqfl% 2Fg9IQ a4ajBk vP9nXo QUaueC m3YtLR FvZlgJ JJ8mAn HZtai3 8i1161 AC0Kqa 3WHWaO nKiQtr MwF INTERFACE [facility] [address], [place], [address], 04/15/2024 11:05:06 04/15/20 24 04/15/2024 XR, hip + pelvi s, unila teral , 2 or 3 view http:/ [email or web address] ?Encry pted=s hAaTro YD8dLq bEUv6g %2BXZw aYqtaq 0bqfl% 2Fg9IQ a4ajBk vP9nXo QUaueC m3YtLR FvZlgJ JJ8mAn HZtai3 1v3302 AC0Kqa 3WHWaO nKiQtr MwF INTERFACE [facility] [address], [place], [address], 04/15/2024 11:05:08 04/28/2004/28/2024 XR, hip + pelvi s, unila teral , 2 or 3 view http:/ [email or web address] ?Encry pted=s hAaTro YD8dLq bEUv6g %2BXZw aYqtaq 0bqfl% 2Fg9IQ a4ajBk vP9nXo QUaueC m3YtLR FvZlgJ JJ8mAn HZtai3 8e5543 AC0Kqa HmFVKK vKiQtr MwF INTERFACE [facility] [address], [place], [address], 04/28/2024 13:52:31 04/28/20 24 04/28/2024 XR, hip + pelvi s, unila teral , 2 or 3 view http:/ [email or web address] ?Encry pted=s hAaTro YD8dLq bEUv6g %2BXZw aYqtaq 0bqfl% 2Fg9IQ a4ajBk vP9nXo QUaueC m3YtLR FvZlgJ JJ8mAn HZtai3 4n2570 AC0Kqa HmFVKK vKiQtr MwF INTERFACE [facility] [address], [place], [address], 04/28/2024 13:52:33 Result Notes None recorded. Procedures Surgical History None recorded. Imaging Results Imaging Date Name Status LastModified by Organiz ation Details LastModified Time 04/15/2024 XR, hip + pelvis, unilateral , 2 or 3 view completed INTERFACE [employer] [facility] [address], [place], [address], 04/15/2024 11:05:06 04/15/2024 XR, hip + pelvis, unilateral , 2 or 3 view completed INTERFACE [facility] [address], [place], [address], 04/15/2024 11:05:08 04/28/2024 XR, hip + pelvis, unilateral , 2 or 3 view completed INTERFACE [employer] [facility] [email or web address], [place], [address], 04/28/2024 13:52:31 04/28/2024 XR, hip + pelvis, unilateral , 2 or 3 view completed INTERFACE [employer] [address], [place], [address], 04/28/2024 13:52:33 Procedure Notes None recorded. Medical Equipment None Reported. Allergies No known drug allergies Medications Name Sig Start Date Stop Date Status Note LastModified by Organization Details LastModified Time amoxicillin 500 mg capsule TAKE 4 CAPSULES BY MOUTH 1 HOUR PRIOR TO PROCEDURE active Not Available Not Available No t Available latanoprost 0.005 % eye drops INSTILL 1 [...] Not Available Not Available No t Available albuterol sulfate HFA 90 mcg/actuati on aerosol inhaler 2 PUFF INHALED EVERY 4 TO 6 HOURS NEEDED FOR SHORTNESS OF BREATH OR WHEEZING FOR 60 DAYS active Not Available Not Available No t Available fluoxetine 20 mg capsule TAKE 1 CAPSULE BY MOUTH DAILY active Not Available Not Available No t Available amoxicillin 875 mg-potassiu m clavulanate 125 mg tablet TAKE 1 TABLET BY MOUTH EVERY 12 HOURS active Not Available Not Available No t Available moxifloxaci n 0.5 % eye drops [...] and Address Organization Details Last Updated DateTime 04/15/2024 167.64 cm 26.5 kg/m2 19761.15 g SAMI Hernandez [facility] 04/15/2024 10:43:49 Date Recorded Body height Provider Name an d Address Organization Details Last Updated DateTime 04/28/2024 167.64 cm SAMI LOVETT [facility] 04/28/2024 13:15:31 Date Recorded Body height Body mass index (BMI) Body weight Provider Name and Address Organization Details Last Updated DateTime 07/19/2024 167.64 cm 26.5 kg/m2 30527.15 g Caitlin Khalil [facility] 07/19/2024 12:56:26 Social History Question Answer Notes LastModified by Organizat ion Details LastModified Time Tobacco Smoking Status Former Smoker SAMI gonzalez [place] - [facility] 04/15/2024 10:44:03 What Is Your Level Of Alcohol Consumption? None [email or web address] Information not available 04/15/2024 When Did You Quit Smoking? 16+yearssin zaida valladareste ranjit Information not available 04/15/2024 Do You Use Any Illicit Or Recreational Drugs? No [email or web address] Information not available 04/15/2024 Do You Or Have You Ever Used Any Other Forms Of Tobacco Or Nicotine? No pierce Information not available 04/15/2024 Sex: Unknown Functional Status None recorded. Mental Status None recorded. Family History Nothing Reported. Medical History Condition Response Anxiety/Depression Y Pacemaker Y Hypertension Y COPD Y Past Encounters Encounter ID Performer Location Encounter Start Date Encounter Closed Date Diagnosis/Indication Diagnosis SNOMED-CT Code Diagnosis ICD10 Code Diagnosis Note [id number] EDNA Mackay [address] [place] [address] 04/15/2024 10:34:43 05/05/2024 08:01:43 Postoperative visit 522564658 Z48.89 [id number] EDNA Mackay [address] [place] [address] 04/28/2024 13:05:27 05/18/2024 11:17:16 Postoperative visit 848228250 Z48.89 [id number] MD NIRAJ Thomas [address] [place] [address] 07/19/2024 12:52:57 07/28/2024 15:34:10 History of total replacement of right hip joint 9553777619 39579 Z96.641 Health Concerns Section Related Observation LastModified by Organization Detai ls LastModified Time None Recorded Concern Status LastModified by Organization Details LastModified Time None Recorded Advance Directives Directive None Recorded Payers Encounter Date Sequence Insurance Name Policy Number Policy Evans Covered Member ID Evans Member ID Guarantor Name 04/15/2024 2 [place] [id number] Mike Kemp [id number] Mike Kemp 04/15/2024 1 [place] [facility] Mike Kemp [id number] Mike Kemp 04/28/2024 2 [place] [id number] Mike Kemp [id number] Mike Kemp 04/28/2024 1 [place] [facility] Mike Kemp [id number] Mike Kemp 07/19/2024 2 [place] [id number] Mike Kemp [id number] Mike Kemp 07/19/2024 1 [place] [facility] Mike Kemp [id number] Mike Kemp Notes Date Note Type Note Provider Name and Address Organization Details Recorded Time 04/15/2024 text/html I am seeing the patient today under the supervision of {{Wandy George Adelso#} } who was available but who did not see the patient. Surgeon: {{Wandy George*}}Proced ure: Right total hip arthroplastyDate of procedure: 03/28/24 HPI: Patient presents today {{2 weeks* 4 weeks}} status post {{Left Right*}} total hip arthroplasty by {{Luiz Gonsalez}}. Patient is in rehab still at [facility]. Patient is taking {{aspirin* eliquis}} BID for DVT prophylaxis. They are using a {{rolling walker cane no assistive device wheelchair and walker#}} for ambulation assistance. No neurovascular changes. They have been compliant with total hip precautions as directed. Overall happy with results thus far. Primarily utilizing {{oxycodone tramadol d ilaudid tylenol no pain medications tylenol and tramadol#}} for pain control.Diagnostic Imaginv x-rays of the right hip were ordered, obtained, and reviewed today at [facility] demonstrates well maintained alignment of the prosthetic components. No fracture or dislocation. Well seated acetabular component. No evidence of subsidence. No interval changes ASSESSMENT:Progressing nicely {{two* four}} weeks status post {{Left Right*}} total hip arthroplasty Dr. George 03/28/24 PLAN:We will see the patient back for standard postop visit as scheduled. The patient will continue with physical therapy until discharged. Reviewed total hip dislocation precautions. Continue with assistive device as needed to help with ambulation. Will continue DVT prophylaxis as scheduled. No dental work for 3 months postop. Facility paperwork was filled out. Follow-up as scheduled, sooner if any problems are encountered. All questions and concerns were addressed and answered. Speech recognition tearoom host/hostess software was used to create portions of this document. An attempt at proofreading has been made to minimize errors. Please call for corrections. Nolvia Murray PA-C [address] [facility] [address] [place] [address], [address], [facility] 04/15/2024 11:31:35 04/28/2024 text/html I am seeing the patient today under the supervision of {{Wandy valderrama* Paulie George}} who was available but who did not see the patient. Surgeon: {{Wandy George*}}Proced ure: Right total hip arthroplastyDate of procedure: 03/28/24 HPI: Patient presents today {{2 weeks 4 weeks*}} status post {{Left Right*}} total hip arthroplasty by {{Luiz Gonsalez}}. Patient is now home from rehab, OT/PT is coming to their house. Patient is taking {{aspirin* eliquis}} BID for DVT prophylaxis. They are using a {{rolling walker* cane no assistive device}} for ambulation assistance. No neurovascular changes. They have been compliant with total hip precautions as directed. Overall happy with results thus far. Primarily utilizing {{oxycodone tramadol d ilaudid tylenol* no pain medications}} for pain control. Doing well, dealing with COPD issues.Diagnostic Imaginv x-rays of the right hip were ordered, obtained, and reviewed today at [facility] demonstrates well maintained alignment of the prosthetic components. No fracture or dislocation. Well seated acetabular component. No evidence of subsidence. No interval changes ASSESSMENT:Progressing nicely {{two four*}} weeks status post {{Left Right*}} total hip arthroplasty Dr. George 03/28/24 PLAN:We will see the patient back for standard postop visit as scheduled. The patient will continue with physical therapy until discharged. Reviewed total hip dislocation precautions. Continue with assistive device as needed to help with ambulation. Will continue DVT prophylaxis as scheduled. No dental work for 3 months postop. Facility paperwork was filled out. Follow-up as scheduled, sooner if any problems are encountered. All questions and concerns were addressed and answered. Speech recognition tearoom host/hostess software was used to create portions of this document. An attempt at proofreading has been made to minimize errors. Please call for corrections. Nolvia Murray PA-C [address] [facility] [address], [place], [address], [facility] - [facility] 04/28/2024 14:05:08
--- OUTSIDE RECORDS SUMMARY | 2024-10-18 13:14 | XMS_ITS | Patient Health Record ---
Author Organization Dru Olea MD Address [address] [place], [place] [id number] Care Team Providers Care Veterans' Counselor Name Role Phone Jose Milner DO Primary Care Provider Unavail able Allergies No Known Allergies Reason For Referral No Information Medications Medication SIG (Take, Route, Frequency, Duration) Notes Start Date End Date Status Robitussin 12 Hour Cough 30 MG/5ML 10 mL as needed Orally every 12 hrs Active Breo Ellipta 200-25 MCG/ACT 1 puff Inhal ation Once a day Active Betamethasone Dipropionate 0.05 % 1 application Externally Once a day Active FLUoxetine HCl 20 MG 1 capsule Orally On ce a day for 30 day(s) Active Aspir-Low 81 MG 1 tablet Orally Once a day for 30 day(s) Active Atorvastatin Calcium 40 MG 1 tablet Oral ly Once a day for 30 day(s) Active predniSONE 20 MG 2 tablets Orally Onc e a day for 2 days 03/23/2023 Active Problems Problem Type SNOMED Code ICD Code Onset Dates Problem Status W/U Status Risk Notes Problem [id number] Chronic obstructive pulmonary disease with acute exacerbation (J44.1) Active confirmed Plan Of Treatment No Information Insurance Providers Payer Name Payer Address Payer Phone Subscriber Number Group Number Insured Name Patient Relationship to Insured Coverage Start Date Coverage End Date [employer] [address] [place] [address] [id number] Mike Kemp Self - patient is the insured MEDEX BC OF [facility] [id number] [place] [address] [phone] [id number] Mike Kemp Self - patient is the insured
== END 2024-10-18 11:53 | disposition home or self-care (01) ==
LOC: HO.HMCSH 11:04
PROVIDERS: PCP Internal Medicine; Visit Provider Physician Assistant Medical
DX: E11.9 Type 2 diabetes mellitus without complications (principal); I10 Essential (primary) hypertension

== ENCOUNTER → 2024-10-18 11:04 | Outpatient (BNVA) | payer MEDICARE, SELFPAY | PROVIDERS: PCP Internal Medicine; Visit Provider Physician Assistant Medical | DX: E11.9 Type 2 diabetes mellitus without complications (principal); I10 Essential (primary) hypertension | CPT/HCPCS: 96127; 99212 ==

== ENCOUNTER 2024-11-23 11:28 | Outpatient (AMB) | payer MEDICARE, SELFPAY ==
--- NOTE | 2024-11-23 11:22 | A.OFFPC_ITS ---
Vital Signs 11/23/24 11:23 Height 5 ft 5 in Weight 153 lb BMI 25.5 BP 132/68 Blood Pressure Location Rt brachial Position Sitting Respiration 16 Pulse 68 Pulse Source Pulse Oximeter Temp 97.6 F Temp Source Temporal Artery Scan Pulse Oximetry (%) 92 Oxygen Delivery Method Room Air Intake Visit Reasons: follow up Semaphore Operator Required: No Accompanied by: Spouse Allergies No Known Drug Allergies [NO KNOWN DRUG ALLERGIES] Allergy (Unknown, Verified 11/23/24 12:02) NONE latex Allergy (Uncoded 11/23/24 12:02) Rash Medication List - Last Reconciled 11/23/24 by Tita Colorado PA-C acetaminophen (Tylenol Extra Strength) 500 mg PO Q6H PRN albuterol sulfate 90 mcg/actuation 2 puffs inhalation Q4-6H PRN 60 days amlodipine 10 mg PO DAILY aspirin 81 mg PO DAILY atorvastatin 40 mg PO DAILY betamethasone dipropionate 0.05% appl topical BID Breo Ellipta 200-25 mcg/dose (fluticasone furoate-vilanterol) 1 ea inhalation DAILY 90 days NS fluoxetine 20 mg PO DAILY latanoprost 0.005% drps ophthalmic (eye) Tobacco use date assessed: 11/23/24 Fall risk assessment: 1 Fall in past year Last assessed Fall Risk: 11/23/24 Dental Screening Dental Screen Date: 11/23/24 Did you have a dental visit in the last 12 months?: Yes Did you have a dental problem in the last 6 months where you did not have access to dental care?: No Was dental information given to patient?: Patient has dentist HPI follow up HPI Details The patient is an 89-year-old male presenting with a follow-up for diabetes management and hypertension. He has a history of cancer of the ear that was surgically treated. His diabetes management was previously complicated by the use of metformin, which caused severe dizziness and gastrointestinal issues, leading to its discontinuation. His diabetes is now managed through lifestyle modifications, and his recent A1c level is 6.7. The patient has experienced dizziness, particularly after the use of metformin. This has improved since stopping the medication. His hypertension is well- managed with amlodipine 10 mg, though he reports peripheral edema as a side effect. Despite this, the patient opts to continue with the current hypertension treatment. Peripheral edema is noted, particularly at the end of the day, which may be linked to the use of amlodipine. Additionally, there is a history of anemia and COPD, with breathlessness occurring during physical exertion but no other significant respiratory symptoms reported. Patient and requesting new Cardiology referral for better management of chronic medical conditions. Will also place VNA order for chronic medical good conditions at home. Social History - The patient is retired and lives on a fixed income. - Reports frustration with physical acti vities due to difficulty putting on socks after a hip fracture. - Prefers not to pay [id number] for m edical services not covered by in [facility]. - Interested in managing diabetes throug h diet and exercise, avoiding medications. [facility] Medical History (Updated 11/23/24 @ 12:08 by Tita Colorado PA-C) Peripheral edema Chronic anemia New onset type 2 diabetes mellitus Overweight with body mass index (BMI) of 25 to 25.9 in adult Basal cell carcinoma of ear Glucose intolerance Sciatica Lumbar herniated disc Osteoarthritis History of basal cell carcinoma Mucopurulent chronic bronchitis Obstructive airway disease Mild cognitive impairment Mild hypercholesterolemia Coronary artery disease SSS (sick sinus syndrome) Cough COPD (chronic obstructive pulmonary disease) Prostate cancer Eczema Gallstones Nocturia Kidney cysts Kidney stones Hyperlipidemia HTN (hypertension) Prostate cancer Surgical History History of colonoscopy History of cholecystectomy History of herniorrhaphy History of right hip replacement History of prostatectomy Family History Father No problems noted. Mother No problems noted. Social History Housing: House Alcohol intake: current Alcohol intake frequency: holidays/special occasions only Patient Tobacco Use Status: Former Tobacco user Years Smoked: 30 years Current occupational status: retired Cognitive needs: Yes (cane) Hearing needs: No Vision needs: Yes (rx glasses) Questionnaire PHQ-9 Over the last 2 weeks, how often have you been bothered by any of the following problems? 1. Little interest or pleasure in doing things: not at all 2. Feeling down, depressed, or hopeless: not at all 3. Trouble falling or staying asleep, or sleeping too much: not at all 4. Feeling tired or having little energy: not at all 5. Poor appetite or overeating: not at all 6. Feeling bad about yourself - or that you are a failure or have let yourself or your family down: not at all 7. Trouble concentrating on things, such as reading the newspaper or watching television: not at all 8. Moving or speaking so slowly that other people could have noticed. Or the opposite - being so fidgety or restless that you have been moving around a lot more than usual: not at all 9. Thoughts that you would be better off or of hurting yourself in some way: not at all Total score: 0 Depression Screening Interpretation: Negative Depression Screening Done: Yes 73302 - PHQ-9 Billing: Yes Source: Developed by Drs. Jose Mederos, Erica Bailey, Mika Kern and colleagues, with an educational krista from [employer]. Thrive Questionnaire Date Thrive assessed: 11/23/24 I am a: Patient What is your living situation today?: I have a steady place to live Within the past 12 months, did the food you bought not last and you didn't have the money to get more?: Never true Within the past 12 months, did you worry whether your food would run out before you got money to buy more?: Never true Do you have trouble paying for medicines?: No Do you have trouble getting transportation to medical appointments?: No Do you have trouble paying your heating and electricity bill?: No Do you have trouble taking care of your child, family member or friend?: No Do you have trouble with day-to-day activities such as bathing, preparing meals, shopping, managing finances, etc.?: No Are you currently unemployed and looking for a job?: No Are you interested in more education?: No Please select the resources that you would like help with: None THRIVE Score: 0 AUDIT C Alcohol Use Questionnaire (AUDIT-C) 1. How often do you have a drink containing alcohol?: Monthly or less 2. How many drinks containing alcohol do you have on a typical day when you are drinking?: 1 or 2 3. How often do you have six or more drinks on one occasion?: Never Total Score: 1 Score Reviewed/Action Taken: No NEVAEH-7 AMB Questionnaire NEVAEH-7 Date NEVAEH - 7 assessed: 11/23/24 Feeling nervous, anxious, or on edge: 0 = Not at all Not being able to stop or control worryin = Not at all Worrying too much about different things: 0 = Not at all Trouble relaxin = Not at all Being so restless that it is hard to sit still: 0 = Not at all Becoming easily annoyed or irritable: 0 = Not at all Feeling afraid as if something awful might happen: 0 = Not at all Total NEVAEH-7 score (0-4 normal; 5-9 mild; 10-14 moderate; 15-21 severe): 0 Source: Developed by Drs. Jose Mederos, Erica Bailey, Mika Kern and colleagues, with an educational krista from [employer]. NEVAEH-7 Assessment Billing NEVAEH-7 Assessment Tool: NEVAEH-7 Assessment 53711 Review of Systems Const Details: - General: Denies any specific complaints today. - HEENT: History of cancer of the ear, treated surgically. - Cardiovascular: Reports blood pressure variability at home; denies chest pain. - Respiratory: Reports breathlessness on exertion; denies orthopnea. - Gastrointestinal: History of gastrointestinal upset with metformin. - Musculoskeletal: Reports difficulty with physical activities due to hip fracture recovery. - Neurological: Reports past episodes of severe dizziness. - Endocrine: Reports diabetes management through lifestyle changes; A1c of 6.7. - Hematologic: History of anemia noted in previous blood work. - Peripheral Vascular: Reports peripheral edema, particularly at the end of the day. Physical exam (Primary Care) Vital Signs: Last Vital Signs Temp 97.6 F 11/23/24 11:23 Pulse 68 11/23/24 11:23 Resp 16 11/23/24 11:23 BP 154/68 H 11/23/24 11:23 Pulse Ox 92 11/23/24 11:23 Oxygen Delivery Method Room Air 11/23/24 11:23 Care Plan Goal for BP management: <140/90 at Goal BMI result Body Mass Index 25.5 BMI Assessment/Plan discussion: High BMI High, discussed plan: lifestyle, weight reduction, dietary, physical activity and alcohol moderation Tobacco/Smoking Status: Tobacco use Status Tobacco use date assessed 11/23/24 11/23/24 11:26 Patient Tobacco Use Status Former Tobacco user 11/23/24 11:38 PHQ-9: PHQ-9 Score PHQ-9: Total score 0 11/23/24 11:26 Depression Screening Interpretation: Negative Thrive Assessment: Date of Thrive Assessment Date Thrive assessed 11/23/24 11/23/24 11:26 Const Other: Appearance: Alert. Oriented X3. No acute distress. Head: Normal external exam. Normocephalic. Atraumatic. Eyes: Pupils are equal, round, and reactive to light. Extraocular movements intact. Conjunctiva and sclera normal. Eyelids normal. Throat: Moist mucous membranes. Neck: Normal inspection. Neck supple. Full range of motion. Cardiovascular: Normal heart rate and rhythm. Heart sound normal. No murmurs noted. Pulses normal throughout. Blood pressure recorded at 132/66. Respiratory: No respiratory distress. Painless inspiration. Back: Full range of motion noted. Skin: Skin warm and dry. Normal skin color. Normal skin turgor. No rashes/les ions/lacerations noted. Extremities: Lower extremity edema noted, particularly in the ankles, likely related to amlodipine use. Extremities exhibit normal range of motion. Extremities nontender. Neuro: Oriented X 3. No motor deficit. No sensory deficit. Reflexes normal.[ Results Reviewed Results Reviewed: - Labs: Hemoglobin A1c 6.7% (September). - Tests: Previous blood work indicated anemia. Coding Level of Care Code Est Pt Level 4 (89711) Complex EM visit Add On G2211 Diagnoses HTN (hypertension) I10 COPD (chronic obstructive pulmonary disease) J44.9 Basal cell carcinoma of ear C44.211 Overweight with body mass index (BMI) of 25 to 25.9 in adult E66.3; Z68.25 New onset type 2 diabetes mellitus E11.9 Chronic anemia D64.9 Peripheral edema R60.0 Hyperlipidemia E78.5 SSS (sick sinus syndrome) I49.5 Prostate cancer C61 Coronary artery disease I25.10 Additional Codes PHQ-9 - 91608 - PHQ-9 Billing: Yes ([id number]) NEVAEH-7 Assessment Billing - NEVAEH-7 Assessment Tool: NEVAEH-7 Assessment 50887 ([id number]) Assessment & Plan Assessment & Plan (1) HTN (hypertension): Code(s): I10 - Essential (primary) hypertension Category: Medical Plan: Blood pressure controlled with amlodipine 10 mg. Peripheral edema noted. I advised monitoring edema and reporting new symptoms. Is chronic and stable will continue to monitor. (2) COPD (chronic obstructive pulmonary disease): Comment: SEVERE CHRONIC ,OBSTRUCTIVE PULMONARY DISEASE, BUT WELL CONTROLLED AT THIS TIME, Code(s): J44.9 - Chronic obstructive pulmonary disease, unspecified Category: Medical Plan: Exertional breathlessness noted. I advised monitoring and avoiding exacerbating activities. Condition is chronic and stable continue to monitor. (3) Basal cell carcinoma of ear: Code(s): C44.211 - Basal cell carcinoma of skin of unspecified ear and external auricular canal Category: Medical Plan: Status post resection. Condition is stable will continue to monitor. (4) Overweight with body mass index (BMI) of 25 to 25.9 in adult: Code(s): E66.3 - Overweight; Z68.25 - Body mass index [BMI] 25.0-25.9, adult Category: Medical Plan: Patient has improved diet and exercise regimen. Condition is chronic and stable continue to monitor. (5) New onset type 2 diabetes mellitus: Code(s): E11.9 - Type 2 diabetes mellitus without complications Category: Medical Plan: The patient chooses diet and exercise for diabetes management. Medication will be reconsidered if A1c rises above 7%. Condition is chronic and stable continue to monitor. (6) Chronic anemia: Code(s): D64.9 - Anemia, unspecified Category: Medical Plan: Previously noted; I will continue monitoring. Condition is chronic and stable continue to monitor. (7) Peripheral edema: Code(s): R60.0 - Localized edema Category: Medical Plan: Likely due to amlodipine. I advised leg elevation and monitoring for increased swelling. Condition is chronic and stable continue to monitor. (8) Hyperlipidemia: Code(s): E78.5 - Hyperlipidemia, unspecified Category: Medical (9) SSS (sick sinus syndrome): Comment: s/p PPP Code(s): I49.5 - Sick sinus syndrome Category: Medical (10) Prostate cancer: Code(s): C61 - Malignant neoplasm of prostate Category: Medical (11) Coronary artery disease: Code(s): I25.10 - Atherosclerotic heart disease of [place] coronary artery without angina pectoris Category: Medical Plan Plan Patient was informed and verbally consented to the use of an ambient scribe for clinic note documentation during this visit. 1. Diabetes Mellitus Type 2 The patient chooses diet and exercise for diabetes management. Medication will be reconsidered if A1c rises above 7%. 2. Essential Hypertension Blood pressure controlled with amlodipine 10 mg. Peripheral edema noted. I advised monitoring edema and reporting new symptoms. 3. Dizziness Improved since stopping metformin. I advised monitoring and reporting recurrence. 4. Chronic Obstructive Pulmonary Disease Copd Exertional breathlessness noted. I advised monitoring and avoiding exacerbating activities. 5. Peripheral Edema Likely due to amlodipine. I advised leg elevation and monitoring for increased swelling. 6. Anemia Previously noted; I will continue monitoring. During the visit, I discussed with the patient the management of his diabetes through lifestyle changes, as he prefers not to use medications due to past side effects. I explained the importance of monitoring his A1c and that we would consider pharmacotherapy if it exceeds 7%. We discussed his blood pressure management, currently controlled with amlodipine, and the side effect of peripheral edema. I offered the option of switching medications if the edema worsens, but the patient prefers to continue the current regimen. We also discussed the history of dizziness, which has improved after stopping metformin, and I advised him to report any new episodes. I addressed his COPD symptoms, advising monitoring and avoidance of exertion that causes breathlessness. For anemia, I noted its presence in past labs and will continue to monitor. We agreed on a follow-up in six months unless symptoms necessitate earlier evaluation. I also referred him to a new commercial loan processor and visiting nurses to assist with medication management and monitoring if covered by insurance. Orders: Referrals Cardiology Referral E78.5 - Hyperlipidemia, unspecified, I10 - Essential (primary) hypertension, I49.5 - Sick sinus syndrome [facility] Referral C44.211 - Basal cell carcinoma of skin of unspecified ear and external auricular canal, C61 - Malignant neoplasm of prostate, E11.9 - Type 2 diabetes mellitus without complications, E66.3 - Overweight, E78.00 - Pure hypercholesterolemia, unspecified, E78.5 - Hyperlipidemia, unspecified, G31.84 - Mild cognitive impairment of uncertain or unknown etiology, I10 - Essential (primary) hypertension, I25.10 - Atherosclerotic heart disease of [place] coronary artery without angina pectoris, I49.5 - Sick sinus syndrome, J44.9 - Chronic obstructive pulmonary disease, unspecified, M19.90 - Unspecified osteoarthritis, unspecified site, M51.26 - Other intervertebral disc displacement, lumbar region, M54.30 - Sciatica, unspecified side, Z68.25 - Body mass index [BMI] 25.0-25.9, adult Patient Instructions: - Continue to manage diabetes with diet and exercise. - Monitor blood pressure at home; report any significant changes or symptoms. - Elevate legs to help with swelling; report if swelling worsens. - Monitor for dizziness; avoid activities that may lead to falls if dizziness occurs. - Follow-up with referred commercial loan processor and visiting nurses if covered by insurance. - Return in six months or sooner if new symptoms arise.
[2024-11-23 11:23] VITALS: BP 132/68; PULSE 68; RESP 16; TEMP 36.4; O2SAT 92; BMI 25.5
--- OUTSIDE RECORDS SUMMARY | 2024-11-23 12:21 | XMS_ITS | Data Portability ---
Author Organization [facility], [facility] Address [address] [place] [address] Care Team Providers Care Snagger Name Role Phone JOYCELYN LEÓN Primary Care Provider [phone] Assessment Encounter Date Assessment Date Assessment LastModified [...] X-rays reviewed in the office today on [facility] PACS: AP pelvis and right [...] of their questions today in the office. [facility] speech recognition telegraph plant maintainer software was used to create portions of this document. An attempt at proofreading has been made to minimize errors. Please call for corrections. [email or web address] Not available 07/19/2024 13:20:41 Plan of Treatment [...] [facility], [address], [address], [place], [address], 4 11:17:16 XR, hip + pelvis , unilat eral, 2 or 3 view - RM 221 1st PO RTHR 4 [facility] 024 04/15/20 24 [facility] [place], [address], [address], [place], [address], 4 08:01:44 Medication Orders None record ed. [...] a4ajBk vP9nXo QUaueC m3YtLR FvZlgJ JJ8mAn HZtai3 7i6740 AC0Kqa 3WHWaO nKiQtr MwF INTERFACE [facility] [address], [place], [address], 04/15/2024 11:05:06 04/15/20 24 04/15/2024 XR, hip + pelvi s, unila teral , 2 or 3 view http:/ [email or web address] ?Encry pted=s hAaTro YD8dLq bEUv6g %2BXZw aYqtaq 0bqfl% 2Fg9IQ a4ajBk vP9nXo QUaueC m3YtLR FvZlgJ JJ8mAn HZtai3 7r9993 AC0Kqa 3WHWaO nKiQtr MwF INTERFACE [facility] [address], [place], [address], 04/15/2024 11:05:08 04/28/2004/28/2024 XR, hip + pelvi s, unila teral , 2 or 3 view http:/ [email or web address] ?Encry pted=s hAaTro YD8dLq bEUv6g %2BXZw aYqtaq 0bqfl% 2Fg9IQ a4ajBk vP9nXo QUaueC m3YtLR FvZlgJ JJ8mAn HZtai3 9b5456 AC0Kqa HmFVKK vKiQtr MwF INTERFACE [facility] [address], [place], [address], 04/28/2024 13:52:31 04/28/20 24 04/28/2024 XR, hip + pelvi s, unila teral , 2 or 3 view http:/ [email or web address] ?Encry pted=s hAaTro YD8dLq bEUv6g %2BXZw aYqtaq 0bqfl% 2Fg9IQ a4ajBk vP9nXo QUaueC m3YtLR FvZlgJ JJ8mAn HZtai3 9t3276 AC0Kqa HmFVKK vKiQtr MwF INTERFACE [facility] [address], [place], [address], 04/28/2024 13:52:33 Result Notes None recorded. Medical Equipment None Reported. [...] Updated DateTime 07/19/2024 167.64 cm 26.5 kg/m2 83519.15 g Caitlin Chaidezlloyd [facility] 07/19/2024 12:56:26 Date Recorded Body height Body mass index (BMI) Body weight Provider Name and Address Organization Details Last Updated DateTime 04/15/2024 167.64 cm 26.5 kg/m2 09568.15 g SAMI TERRY Hernandez [facility] 04/15/2024 10:43:49 Date Recorded Body height Provider Name an d Address Organization Details Last Updated DateTime 04/28/2024 167.64 cm SAMI RACHELL [facility] 04/28/2024 13:15:31 Social History Question Answer Notes LastModified by Organizat ion Details LastModified Time Tobacco Smoking Status Former Smoker SAMI RACHELL null, [facility] 04/15/2024 10:44:03 When Did You Quit Smoking? 16+yearssinc elastcigaret te Information not available 04/15/2024 Sex: Unknown Functional Status Question Answer Note LastModified by Organizat ion Details LastModified Time Do you use any illicit or recreational drugs? No Information not available 04/15/2024 Do you or have you ever used any other forms of tobacco or nicotine? No Information not available 04/15/2024 What is your level of alcohol consumption? None Information not available 04/15/2024 Mental Status None recorded. Family History Nothing Reported. Medical History Condition Response Anxiety/Depression Y COPD Y Pacemaker Y Hypertension Y Past Encounters Encounter ID Performer Location Encounter Start Date Encounter Closed Date Diagnosis/Indication Diagnosis SNOMED-CT Code Diagnosis ICD10 Code Diagnosis Note [id number] [facility] [address] [place] [address] 04/15/2024 10:34:43 05/05/2024 08:01:43 Postoperative visit [id number] Z48.89 [id number] [facility] [address] [place] [address] 04/28/2024 13:05:27 05/18/2024 11:17:16 Postoperative visit [id number] Z48.89 [id number] MD NIRAJ Thomas [address] floor [address] [place] [address] 07/19/2024 12:52:57 07/28/2024 15:34:10 History of total replacement of right hip joint 9238111886 17446 Z96.641 Health Concerns Section Related Observation LastModified by Organization Detai ls LastModified Time None Recorded Concern Status LastModified by Organization Details LastModified Time None Recorded Advance Directives Directive None Recorded Payers Encounter Date Sequence Insurance Name Policy Number Policy Veans Covered Member ID Evans Member ID Guarantor Name 04/15/2024 2 [place] [id number] Mike Kemp [id number] Mike Kemp 04/15/2024 1 [place] Mike Lidia Kemp [id number] Mike Olivaskins 04/28/2024 2 [place] [id number] Mike Kemp [id number] Mike Kemp 04/28/2024 1 [place] Mike Lidia Justo [id number] Mike Kemp 07/19/2024 2 [place] [id number] Mike Kemp [id number] Mike Olivaskins 07/19/2024 1 [place] Mike Lidia Justo [id number] Mike Olivaskins Notes Date Note Type Note Provider Name and Address Organization Details Recorded Time 04/15/2024 text/html I am seeing the patient today under the supervision of Dr. Wandy Darden who was available but who did not see the patient. Surgeon: Dr. Rizoure: Right total hip arthroplastyDate of procedure: 03/28/24 HPI: Patient presents today 2 weeks status post Right total hip arthroplasty by Dr. George. Patient is in rehab still at [facility]. Patient is taking aspirin BID for DVT prophylaxis. They are using a rolling walker cane no assistive device wheelchair and walker for ambulation assistance. No neurovascular changes. They have been compliant with total hip precautions as directed. Overall happy with results thus far. Primarily utilizing oxycodone tramadol dil audid tylenol no pain medications tylenol and tramadol for pain control.Diagnostic Imaginv x-rays of the right hip were ordered, obtained, and reviewed today at [facility] demonstrates well maintained alignment of the prosthetic components. No fracture or dislocation. Well seated acetabular component. No evidence of subsidence. No interval changes ASSESSMENT:Progressing nicely two weeks status post Right total hip arthroplasty Dr. George 03/28/24 PLAN:We [...] concerns were addressed and answered. Speech recognition telegraph plant maintainer software was used to create portions of this document. An attempt at proofreading has been made to minimize errors. Please call for corrections. Nolvia Murray PA-C [address] [place] [address], [address], [facility] 04/15/2024 11:31:35 04/28/2024 text/html I am seeing the patient today under the supervision of Dr. Garrido who was available but who did not see the patient. Surgeon: Dr. Harrison: Right total hip arthroplastyDate of procedure: 03/28/24 HPI: Patient presents today 4 weeks status post Right total hip arthroplasty by Dr. George. Patient is now home from rehab, OT/PT is coming to their house. Patient is taking aspirin BID for DVT prophylaxis. They are using a rolling walker for ambulation assistance. No neurovascular changes. They have been compliant with total hip precautions as directed. Overall happy with results thus far. Primarily utilizing tylenol for pain control. Doing well, dealing with COPD issues.Diagnostic Imaginv x-rays of the right hip were ordered, obtained, and reviewed today at [facility] demonstrates well maintained alignment of the prosthetic components. No fracture or dislocation. Well seated acetabular component. No evidence of subsidence. No interval changes ASSESSMENT:Progressing nicely four weeks status post Right total hip arthroplasty Dr. George 03/28/24 PLAN:We [...] concerns were addressed and answered. Speech recognition telegraph plant maintainer software was used to create portions of this document. An attempt at proofreading has been made to minimize errors. Please call for corrections. Nolvia Murray PA-C [address], [place], [address], [facility] 04/28/2024 14:05:08
== END 2024-11-23 12:06 | disposition home or self-care (01) ==
LOC: HO.HMCSH 11:28
PROVIDERS: PCP Internal Medicine; Visit Provider Physician Assistant Medical
DX: J44.9 Chronic obstructive pulmonary disease, unspecified (principal); E11.9 Type 2 diabetes mellitus without complications; I49.5 Sick sinus syndrome; C61 Malignant neoplasm of prostate; C44.212 Basal cell carcinoma of skin of right ear and external auricular canal; I10 Essential (primary) hypertension; E66.3 Overweight; Z68.25 Body mass index [BMI] 25.0-25.9, adult; D64.9 Anemia, unspecified; R60.0 Localized edema; E78.5 Hyperlipidemia, unspecified; I25.10 Atherosclerotic heart disease of native coronary artery without angina pectoris

== ENCOUNTER → 2024-11-23 11:28 | Outpatient (BNVA) | payer MEDICARE, SELFPAY | PROVIDERS: PCP Internal Medicine; Visit Provider Physician Assistant Medical | DX: I10 Essential (primary) hypertension (principal); J44.9 Chronic obstructive pulmonary disease, unspecified; C44.211 Basal cell carcinoma of skin of unspecified ear and external auricular canal; E66.3 Overweight; Z68.25 Body mass index [BMI] 25.0-25.9, adult; E11.9 Type 2 diabetes mellitus without complications; D64.9 Anemia, unspecified; R60.0 Localized edema; E78.5 Hyperlipidemia, unspecified; I49.5 Sick sinus syndrome; C61 Malignant neoplasm of prostate; I25.10 Atherosclerotic heart disease of native coronary artery without angina pectoris | CPT/HCPCS: 96127; 99212 ==

== ENCOUNTER 2024-12-27 12:56 | Outpatient (AMB) | payer MEDICARE, SELFPAY ==
--- NOTE | 2024-12-27 13:08 | MHC.OFFVIS ---
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/ [place]/ Hyperlipidemia/ hypertension Dishroom Attendant Required: No Accompanied by: Spouse Allergies No Known Drug Allergies (NO KNOWN DRUG ALLERGIES) Allergy (Unknown, Verified 11/23/24 12:02) NONE latex Allergy (Uncoded 11/23/24 12:02) Rash Medication List - Last Reconciled 12/27/24 by Skyler Ross MD acetaminophen (Tylenol Extra Strength) 500 mg PO Q6H PRN albuterol sulfate 90 mcg/actuation 2 puffs inhalation Q4-6H PRN 60 days amlodipine 10 mg PO DAILY aspirin 81 mg PO DAILY atorvastatin 40 mg PO DAILY betamethasone dipropionate 0.05% appl topical BID Breo Ellipta 200-25 mcg/dose (fluticasone furoate-vilanterol) 1 ea inhalation DAILY 90 days NS fluoxetine 20 mg PO DAILY latanoprost 0.005% drps ophthalmic (eye) HPI Comments Details: Mike is here for cardiac consultation. He would like to switch his care to our practice. Has been seen at [facility]. It seems that he has had a pacemaker for a long time. Denies any history of coronary artery disease or myocardial infarction or cardiomyopathy. Listed to have COPD. He does get short of breath related to COPD itself but no clear-cut anginal-type chest pains. Otherwise, he would like to consolidate his care at [place]. [facility] Medical History Peripheral edema Chronic anemia New onset type 2 diabetes mellitus Overweight with body mass index (BMI) of 25 to 25.9 in adult Basal cell carcinoma of ear Glucose intolerance Sciatica Lumbar herniated disc Osteoarthritis History of basal cell carcinoma Mucopurulent chronic bronchitis Obstructive airway disease Mild cognitive impairment Mild hypercholesterolemia Coronary artery disease SSS (sick sinus syndrome) Cough COPD (chronic obstructive pulmonary disease) Prostate cancer Eczema Gallstones Nocturia Kidney cysts Kidney stones Hyperlipidemia HTN (hypertension) Prostate cancer Surgical History History of colonoscopy History of cholecystectomy History of herniorrhaphy History of right hip replacement History of prostatectomy Family History Father No problems noted. Mother No problems noted. Social History Housing: House Alcohol intake: current Alcohol intake frequency: holidays/special occasions only Patient Tobacco Use Status: Former Tobacco user Years Smoked: 30 years Current occupational status: retired Cognitive needs: Yes (cane) Hearing needs: No Vision needs: Yes (rx glasses) Review of Systems Const Denies chills, Denies fatigue, Denies fever(s), Denies frequent falls, Denies weakness, Denies weight gain and Denies weight loss ENT Denies dizziness Card Denies chest pain, Denies leg edema, Denies lightheadedness, Denies palpitations, Denies dyspnea, Denies dyspnea on exertion and Denies orthopnea Resp Denies cough, Denies dyspnea and Denies dyspnea on exertion GI Denies bloating and Denies change in bowel habits Musc Denies muscle weakness, Denies numbness and Denies tingling Neuro Denies dizziness, Denies frequent falls, Denies numbness, Denies tingling and Denies weakness Endo Denies fatigue and Denies palpitations Physical Exam Vital Signs: Last Vital Signs Pulse 62 12/27/24 13:11 BP 120/52 L 12/27/24 13:11 BMI result Body Mass Index 24.7 Const General: comfortable and no acute distress Orientation/consciousness: patient oriented x3 HEENT Other: Unremarkable Head: Yes normal to inspection Neck Neck: Yes normal visual inspection Chest Chest palpation & inspection: normal inspection of the chest Resp Auscultation: clear to auscultation bilaterally Cardio Palpation: normal PMI Heart sounds: S1 normal heart sound present, S2 normal heart sound present, no gallops, no murmurs and no rubs GI Palpation (GI): Soft to palpation Back/Spine/Pelvis Other: unremarkable Skin General skin exam: no rashes or lesions noted Neuro General: patient oriented x3 Extrem Other: 1+ edema bilateral. General: Yes normal to inspection Psych Mental Status: mental status grossly normal Office Procedures EKG Details: EKG shows atrial sensed, ventricular paced rhythm at 62/Min. 60723-Lxpbaxfiujygcmgtc, Complete Assessment & Plan Assessment & Plan (1) Pacemaker: Code(s): Z95.0 - Presence of cardiac pacemaker Category: Medical (2) SSS (sick sinus syndrome): Comment: s/p PPP Code(s): I49.5 - Sick sinus syndrome Category: Medical Plan On pacemaker interrogation today, longevity is 12 months. Range 8-16 months. Otherwise, grossly unremarkable. Total ventricular pacing 69.8%. We will get a formal interrogation with next visit. Echocardiogram for cardiac function. Follow-up will be arranged. Orders: Orders CA echo transthoracic complete Today I49.5 - Sick sinus syndrome, Z95.0 - Presence of cardiac pacemaker Patient Instructions: - Ensure the pacemaker transmitter is plugged in and functioning. - Monitor for any worsening of breathing or swelling in the legs. - Follow up with cardiology. Coding Level of Care Code New Pt Level 3 (70134) Diagnoses Pacemaker Z95.0 SSS (sick sinus syndrome) I49.5 CPT Codes EKG - CPT: 52154-Lansevnhgyhuahdbs, Complete ([id number])
[2024-12-27 13:11] VITALS: BP 120/52; PULSE 62; BMI 24.7
--- OUTSIDE RECORDS SUMMARY | 2024-12-27 13:54 | XMS_ITS | Data Portability ---
Author Organization [facility], [facility] Address [address] [place] [address] Care Team Providers Care Electronic Sales And Service Technician Name Role Phone JOYCELYN LEÓN Primary Care [...] by me and is located in the patient s chart. EXAM: The patient ambulates with a non-antalgic gait. The surgical wound is well-healed. There is a negative Stinchfield test. There is minimal lateral tenderness. The patient ambulates with a single-point cane. IMAGING: Previously obtained X-rays reviewed in the office today on [facility] PACS: AP pelvis and right frog lateral [...] of their questions today in the office. [facility] speech recognition construction site manager software was used to create portions of this document. An attempt at proofreading has been made to minimize errors. Please call for corrections. [email or web address] Not available 07/19/2024 13:20:41 Plan of Treatment [...] RTHR 4 K 024 04/28/20 24 [facility], [address], [place], [address], 4 11:17:16 XR, hip + pelvis , unilat eral, 2 or 3 view - RM 221 1st PO RTHR 4 [facility] 024 04/15/20 24 [facility], [address], [place], [address], 4 08:01:44 Medication Orders None record ed. [...] a4ajBk vP9nXo QUaueC m3YtLR FvZlgJ JJ8mAn HZtai3 2t9363 AC0Kqa 3WHWaO nKiQtr MwF INTERFACE [facility] [address], [place], [address], 04/15/2024 11:05:06 04/15/20 24 04/15/2024 XR, hip + pelvi s, unila teral , 2 or 3 view [email or web address] ?Encry pted=s hAaTro YD8dLq bEUv6g %2BXZw aYqtaq 0bqfl% 2Fg9IQ a4ajBk vP9nXo QUaueC m3YtLR FvZlgJ JJ8mAn HZtai3 3b5553 AC0Kqa 3WHWaO nKiQtr MwF INTERFACE [facility] [address], [place], [address], 04/15/2024 11:05:08 04/28/20 24 04/28/2024 XR, hip + pelvi s, unila teral , 2 or 3 view http:/ [email or web address] ?Encry pted=s hAaTro YD8dLq bEUv6g %2BXZw aYqtaq 0bqfl% 2Fg9IQ a4ajBk vP9nXo QUaueC m3YtLR FvZlgJ JJ8mAn HZtai3 0s6955 AC0Kqa HmFVKK vKiQtr MwF INTERFACE [facility] [address], [place], [address], 04/28/2024 13:52:31 04/28/20 24 04/28/2024 XR, hip + pelvi s, unila teral , 2 or 3 view http:/ [email or web address] ?Encry pted=s hAaTro YD8dLq bEUv6g %2BXZw aYqtaq 0bqfl% 2Fg9IQ a4ajBk vP9nXo QUaueC m3YtLR FvZlgJ JJ8mAn HZtai3 1c7257 AC0Kqa HmFVKK vKiQtr MwF INTERFACE [facility] [address], [place], [address], 04/28/2024 13:52:33 Result Notes Documentation Provider Name and Address Organization Details Recorded Time Xr, Hip + Pelvis, Unilateral, 2 Or 3 View : [email or web address] Encrypted=izGeHepCZ9yHreA Uv6g%6HPCgmFaeug1elal%2Fg 0SWq2cbLdyX6lWyAPhnkYl3Ks ZJWtPbvEBE6yQcXShdy79h999 6YE5Xvz4XSXhJtHdYljScO Not Available [facility] 04/15/2024 11:05: 07 Xr, Hip + Pelvis, Unilateral, 2 Or 3 View : [email or web address] Encrypted=bdVvDhgAG1aJkdD Uv6g%6OQWoqTzsvd3sjbh%2Fg 0FGz1dfUbnR6jFuSLopaTz7Mt NWHlOqdCSD0lChRKcgd10y971 7LI7Xut7UHMuZoPsUjdBqV Not Available [facility] 04/15/2024 11:05: 09 Xr, Hip + Pelvis, Unilateral, 2 Or 3 View : [email or web address] Encrypted=mbVkRqnQU9aPycW Uv6g%7LUCbyNpbpi9bpws%2Fg 4LHm3ixIdlD0kItEGzweJs7Kh TGNiNhnJGZ4pFxTVkbr35h819 3CV8UvlXcTWOYvGjKlhFnW Not Available [facility] 04/28/2024 13:52: 31 Xr, Hip + Pelvis, Unilateral, 2 Or 3 View : [email or web address] Encrypted=npNgQobES7wEmmA Uv6g%9SGOilHthsx8gblr%2Fg 9IZo7pkJheI8mXkKJtalWd7Mp YBFhOghGJT9iSgVOnhr85e278 0UQ8LfeUbXGZBqCoYseSyU Not Available [facility] 04/28/2024 13:52: 33 Medical Equipment None Reported. Allergies No known [...] Updated DateTime 07/19/2024 167.64 cm 26.5 kg/m2 58309.15 g Caitlin Sarkarmelida [facility] 07/19/2024 12:56:26 Date Recorded Body height Body mass index (BMI) Body weight Provider Name and Address Organization Details Last Updated DateTime 04/15/2024 167.64 cm 26.5 kg/m2 26370.15 g SAMI SKYGUMORRO David [facility] 04/15/2024 10:43:49 Date Recorded Body height Provider Name an d Address Organization Details Last Updated DateTime 04/28/2024 167.64 cm SAMI SKYGUINPanchitoBREWER [facility] 04/28/2024 13:15:31 Social History Question Answer Notes LastModified by Organizat ion Details LastModified Time Tobacco Smoking Status Former Smoker SAMI STOUTPanchitoBREWERERNESTO gonzalez, [facility] 04/15/2024 10:44:03 When Did You Quit Smoking? [...] SNOMED-CT Code Diagnosis ICD10 Code Diagnosis Note [id number] E[facility] [address] [place] [address] 04/15/2024 10:34:43 05/05/2024 08:01:43 Postoperative visit [id number] Z48.89 [id number] Nolvia Murray PA-C [address] [place] [address] 04/28/2024 13:05:27 05/18/2024 11:17:16 Postoperative visit [id number] Z48.89 [id number] MD NIRAJ Thomas [address] [place] [address] 07/19/2024 12:52:57 07/28/2024 15:34:10 History of total replacement of right hip joint [id number] 73002 Z96.641 Health Concerns Section Related Observation LastModified by Organization Detai ls LastModified Time None Recorded Concern Status LastModified by Organization Details LastModified Time None Recorded Advance Directives Directive None Recorded Payers Insurance Date Sequence Insurance Name Policy Number Policy Evans Covered Member ID Evans Member ID Guarantor Name 07/28/2024 2 [place] [id number] Mike Kemp [id number] Mike Kemp 07/19/2024 1 [place] Mike Murillo Kemp [id number] Mike Kemp 05/18/2024 [facility] Mike Justo [id number] Mike Kemp Notes Date Note Type Note Provider Name and Address Organization Details Recorded Time 04/15/2024 text/html I am seeing the patient today under the supervision of Dr. Darden who was available but who did not see the patient. Surgeon: Dr. GeorgeProcedure: Right total hip arthroplastyDate of procedure: 03/28/24 HPI: Patient presents today 2 weeks status post Right total hip arthroplasty by Dr. George. Patient is in rehab still at [facility]. Patient is taking aspirin BID for DVT prophylaxis. They are using a wheelchair and walker for ambulation assistance. No neurovascular changes. They have been compliant with total hip precautions as directed. Overall happy with results thus far. Primarily utilizing tylenol and tramadol for pain control.Diagnostic Imaginv x-rays of the right hip were ordered, obtained, and reviewed today at [facility] demonstrates well maintained alignment of the [...] concerns were addressed and answered. Speech recognition construction site manager software was used to create portions of this document. An attempt at proofreading has been made to minimize errors. Please call for corrections. Nolvia Murray PA-C [address] [place] [address], [address], [facility] 04/15/2024 11:31:35 04/28/2024 text/html I am seeing the patient today under the supervision of Dr. Garrido who was available but who did not see the patient. Surgeon: Dr. GeorgeProcedure: Right total hip arthroplastyDate of procedure: 03/28/24 [...] were ordered, obtained, and reviewed today at [facility] demonstrates well maintained alignment of the [...] concerns were addressed and answered. Speech recognition construction site manager software was used to create portions of this document. An attempt at proofreading has been made to minimize errors. Please call for corrections. Nolvia Murray PA-C [address] [facility] [address], [place], [address], [facility] [place] [facility] 04/28/2024 14:05:08
== END 2024-12-27 13:54 | disposition home or self-care (01) ==
LOC: HO.HCS 12:57
PROVIDERS: PCP Internal Medicine; Visit Provider Internal Medicine
DX: I49.5 Sick sinus syndrome (principal); Z95.0 Presence of cardiac pacemaker; R94.31 Abnormal electrocardiogram [ECG] [EKG]
CPT/HCPCS: 93010; 99203

== ENCOUNTER → 2024-12-27 12:56 | Outpatient (BNVA) | payer MEDICARE, SELFPAY | PROVIDERS: PCP Internal Medicine; Visit Provider Internal Medicine | DX: I49.5 Sick sinus syndrome (principal); Z95.0 Presence of cardiac pacemaker; J44.9 Chronic obstructive pulmonary disease, unspecified; I10 Essential (primary) hypertension; E78.5 Hyperlipidemia, unspecified; Z79.82 Long term (current) use of aspirin; Z79.899 Other long term (current) drug therapy; Z87.891 Personal history of nicotine dependence | CPT/HCPCS: 93005; 99202 ==

== ENCOUNTER 2024-12-31 15:43 | Inpatient (IN) | payer MEDICARE, SELFPAY ==
--- NOTE | ~2024-12-31 | XR_ITS ---
CLINICAL HISTORY: fall 3 view, pelvis and bilateral hips Comparison: None provided Findings: There is no fracture. There is a right total hip arthroplasty in near anatomic alignment. Left hip is normally aligned. Left hip joint space appears normal. There is excreted contrast in the bladder. IMPRESSION: No radiographic evidence of pelvic or hip injury. This document has been electronically signed by: Jose Jimenez MD on 01/01/2025 00:29:33
--- NOTE | ~2024-12-31 | CT_ITS ---
CLINICAL HISTORY: Status post fall left rib pain CT CHEST WITH CONTRAST Comparison: None provided Findings: There is a cardiac pacemaker. There is a small pericardial effusion. The heart is not enlarged. There are prominent aortic and coronary arterial calcifications. No thoracic aortic aneurysm or dissection. There are nonspecific subcentimeter nodules in the left thyroid lobe. There are multiple nonenlarged mediastinal lymph nodes which are most likely reactive in etiology. There is soft tissue prominence in the right hilar region suggesting adenopathy. Small hiatal hernia. No pleural effusion or pneumothorax. There is bronchial wall thickening. There are patchy airspace opacities in the right middle lobe, lingula and right lower lobe. There is a 6 mm noncalcified nodule in the right middle lobe. Cholecystectomy. There are multiple cysts in the right kidney, largest 3.5 cm. There is a 5 cm exophytic cysts in the left kidney. Mild left adrenal gland prominence could be related to hyperplasia. There is dilatation of the pancreatic duct up to 10 mm in the pancreatic body and tail associated with parenchymal atrophy. Acute nondisplaced fractures in left ribs 10, 11 and 12 posteriorly near the costovertebral junctions. Old fracture in right rib 11. No significant vertebral body compression deformity in the thoracic spine. IMPRESSION: 1. Acute nondisplaced fractures in the 10th-12th left ribs with no evidence for pneumothorax or hemothorax. 2. Bronchial wall thickening, which can be seen with asthma, reactive airways process or viral illness. 3. Superimposed infiltrates in the right middle lobe, lingula and right lower lobe. 4. Small pericardial effusion. 5. Mediastinal and right hilar adenopathy. 6. Nonspecific small nodules in the left thyroid lobe. 7. Additional findings as above. This document has been electronically signed by: Taylor Tucker DO on 12/31/2024 18:54:44
--- NOTE | ~2024-12-31 | CT_ITS ---
CLINICAL HISTORY: s p fall CT HEAD WITHOUT CONTRAST Comparison: CT/REG/SR - CT HEAD/BRAIN WO IV CON - 09/23/23 19:28 EDT Findings: No acute intracranial hemorrhage, extra-axial fluid collection, hydrocephalus or midline shift. Age appropriate generalized parenchymal atrophy. There are periventricular and subcortical white matter hypodensities which are most likely related to microangiopathic gliosis. There are remote lacunar infarcts in the bilateral basal ganglia. Intracranial arteriosclerosis. Chronic left maxillary sinusitis. No mastoid fluid. Visualized orbits: Bilateral aphakia. There is no acute fracture. IMPRESSION: No acute intracranial hemorrhage. This document has been electronically signed by: Taylor Tucker DO on 12/31/2024 19:08:09
--- NOTE | ~2024-12-31 | CT_ITS ---
CLINICAL HISTORY: fall CT CERVICAL SPINE WITHOUT CONTRAST Comparison: CT/SR - CT CERVICAL SPINE WO IV CON - 09/23/23 19:28 EDT Findings: Vertebral alignment is within normal limits. Multilevel endplate osteophytes with moderate multilevel disc space narrowing especially at C5-6 and C6-7. [id number] multilevel facet degenerative changes. No acute fractures or dislocations. Please see the separate report for the CT head/brain. No cervical fluid collections or masses. No apical pneumothorax. There is partial visualization of a cardiac pacing wire. IMPRESSION: No acute fracture in the cervical spine. This document has been electronically signed by: Taylor Tucker DO on 12/31/2024 19:06:57
[2024-12-31 15:51] VITALS: BP 144/63; PULSE 66; RESP 12; TEMP 36.6; O2SAT 90; BMI 23.7
--- NOTE | 2024-12-31 15:51 | ECG_ITS ---
Test Reason : fall Blood Pressure : */* mmHG Vent. Rate : 61 BPM Atrial Rate : 61 BPM P-R Int : 196 ms QRS Dur : 126 ms QT Int : 476 ms P-R-T Axes : 37 -73 84 degrees QTcB Int : 479 ms AV dual-paced rhythm Abnormal ECG When compared with ECG of 23-Sep-2023 19:39, Premature supraventricular complexes are no longer Present Vent. rate has decreased by 12 bpm Referred By: Generic ED Physician Electronically Signed By: KACY TIRADO MD
--- NOTE | 2024-12-31 16:06 | PC.NURSE ---
Pt to ED 8 via EMS, sent by urgent care. Pt reports fall with head strike yesterday, 9/10 pain to left ribs. A/O x 3, hx COPD not on home O2. # 18 in R AC. VSS and labs obtained.
--- NOTE | 2024-12-31 16:12 | ED.FALL ---
HPI - Fall General Chief Complaint: Fall Stated Complaint: L rib pain after fall last night Time Seen by Provider: 12/31/24 16:11 Source: patient Mode of arrival: EMS Limitations: no limitations History of Present Illness ED Provider: HPI Narrative: Patient is 89 years old with a history of hypertension hyperlipidemia diabetes COPD came here after mechanical fall complaining of pain in the left rib area patient's hit the head to the ground patient was in the garage trying to remove the trash from the trash bin lost balance and fell on the ramp complaining of increased pain in the left side of the ribs patient has been to urgent care center with a x-ray was done and sent the patient here patient has also been coughing for last several weeks with mucopurulent thick phlegm no fever no chills Related Data Home Medications ?Medication ?Instructions ?Recorded ?Confirmed aspirin 81 mg tablet,delayed 81 mg PO DAILY 08/16/20 12/27/24 release betamethasone dipropionate 0.05 % appl topical BID 09/26/20 12/27/24 topical cream latanoprost 0.005 % eye drops drp ophthalmic (eye) 07/07/23 12/27/24 acetaminophen 500 mg oral powder 500 mg PO Q6H PRN 11/23/24 12/27/24 packet (Tylenol Extra Strength) Previous Rx's ?Medication ?Instructions ?Recorded Breo Ellipta 200 mcg-25 mcg/dose 1 ea inhalation DAILY COPD 90 days 07/21/24 powder for inhalation (fluticasone #3 ea furoate-vilanterol) albuterol sulfate 90 mcg/actuation 2 puff inhalation Q4-6H PRN 07/21/24 aerosol inhaler shortness of breath or wheezing 60 days #8.5 grams fluoxetine 20 mg capsule 20 mg PO DAILY #90 caps 09/12/24 atorvastatin 40 mg tablet 40 mg PO DAILY #90 tabs 10/03/24 amlodipine 10 mg tablet 10 mg PO DAILY #90 tabs 10/17/24 Allergies Allergy/AdvReac Type Severity Reaction Status Date / Time No Known Drug Allergies (NO Allergy Unknown NONE Verified 12/31/24 15:55 KNOWN DRUG ALLERGIES) latex Allergy Rash Uncoded 12/31/24 15:55 Review of Systems Review of Systems: Yes all other systems are reviewed and are negative PMFSH Past Medical History Medical History Peripheral edema Chronic anemia New onset type 2 diabetes mellitus Overweight with body mass index (BMI) of 25 to 25.9 in adult Basal cell carcinoma of ear Glucose intolerance Sciatica Lumbar herniated disc Osteoarthritis History of basal cell carcinoma Mucopurulent chronic bronchitis Obstructive airway disease Mild cognitive impairment Mild hypercholesterolemia Coronary artery disease SSS (sick sinus syndrome) Cough COPD (chronic obstructive pulmonary disease) Prostate cancer Eczema Gallstones Nocturia Kidney cysts Kidney stones Hyperlipidemia HTN (hypertension) Prostate cancer Surgical History History of colonoscopy History of cholecystectomy History of herniorrhaphy History of right hip replacement History of prostatectomy Family History Family History Father No problems noted. Mother No problems noted. Social History Social History Housing: House Alcohol intake: current Alcohol intake frequency: holidays/special occasions only Patient Tobacco Use Status: Former Tobacco user Years Smoked: 30 years Smoked in Last 30 Days: No Use of substances other than those prescribed or required for medical reasons: No Advance Directives: No Advance Directives Information Provided: Yes Nutrition Risks: No Nutritional Risk Current occupational status: retired Cognitive needs: Yes (cane) Hearing needs: No Vision needs: Yes (rx glasses) Physical Exam Vital Signs: Vital Signs: Last Vital Signs Temp 97.7 F 12/31/24 21:25 Pulse 78 12/31/24 21:25 Resp 21 H 12/31/24 21:25 BP 146/58 H 12/31/24 21:25 Pulse Ox 96 12/31/24 21:25 O2 Del Method Nasal Cannula 12/31/24 21:25 O2 Flow Rate 2 12/31/24 21:25 BMI result Body Mass Index 23.7 Appearance: Alert. Oriented X3. No acute distress. Eyes: PERRLA, No Nystagmus ENT: Pharynx normal. Oral Mucosa moist atraumatic normocephalic Neck: Normal inspection. Neck supple. No midline tenderness CVS: Normal heart rate and rhythm. Pulses normal. Respiratory: No respiratory distress. Equal air entry bilateral, bilateral conducted sounds with crackles at the bases tenderness in left axillary area lower ribs Abdomen: Soft and nontender. Bowel sounds are present, no mass palpable, no CVA tenderness Skin: Skin warm and dry. Normal skin color. Normal skin turgor. Extremities: No lower extremity edema. No calf tenderness Neuro: Oriented X 3. No motor deficit. No sensory deficit.No cerebellar signs , cranial nerves II-XII intact Medications Administered Generic Name Dose Route Start Last Admin Trade Name Freq PRN Reason Stop Dose Admin Heparin Sodium (Porcine) 5,000 unit 12/31/24 22:00 12/31/24 22:01 Heparin Sodium,Porcine 5,000 Unit/Ml Vial SUBCUT 5,000 unit Q8H YAMIL Administration Discontinued Medications Generic Name Dose Route Start Last Admin Trade Name Freq PRN Reason Stop Dose Admin Ceftriaxone Sodium 1 gm 12/31/24 21:10 12/31/24 21:28 Ceftriaxone Sodium 1 Gm Vial IVPUSH 12/31/24 21:11 1 gm ONCE ONE Administration Albuterol Sulfate 2.5 mg/ 0 mg 12/31/24 20:12 12/31/24 20:26 Albuterol/Ipratropium 3 ml INHALE 12/31/24 20:13 1 dose ONCE ONE Administration Acetaminophen 1,000 mg in 100 mls @ 400 mls/hr 12/31/24 16:26 12/31/24 16:47 Ofirmev IV 12/31/24 16:40 Infused ONCE ONE Infusion Doxycycline Hyclate 100 mg/ 250 mls @ 166.67 mls/hr 12/31/24 21:10 12/31/24 23:46 Sodium Chloride IV 12/31/24 22:39 Infused ONCE ONE Infusion Iohexol 65 ml 12/31/24 16:59 12/31/24 16:59 Iohexol 350 Mg/Ml 100 Ml Infus..Btl IV 12/31/24 17:00 65 ml ONCE ONE Administration Medical Decision Making Medical Decision Making MDM Narrative: Patient is status post mechanical fall chest CT scan showed done 11 left rib fracture minimal displaced also noted to have infiltration in the right lung and lingular patient's saturating at 88% at room air does not have any oxygen at home had normal venous gas. Because of the infiltrate rib fracture and COPD history will admit patient to medical floor Differential Diagnosis Differential Diagnoses: The differential diagnosis associated with the presentation includes Hypoxia/rib fracture//COPD/pneumonia/pneumothorax Admission/Observation Consideration of admission/observation: Escalation of care including admission/observation considered Consult Healthcare Provider Management of the patient was discussed with: Hospitalist Lab Data MDM Lab Attestation statement: I reviewed the patient's lab results. 12/31/24 16:08 12/31/24 16:08 Labs: Lab Results 12/31/24 Range/Units 16:08 WBC 15.1 H (4.8-10.8) X10*3/uL RBC 3.95 L (4.60-5.80) X10*6/uL Hgb 11.7 L (14.0-18.0) g/dl Hct 34.0 L (42.0-52.0) % MCV 86.1 (80.0-98.0) fL MCH 29.6 (27.0-33.0) pg MCHC 34.4 (31.0-36.0) g/dl RDW 14.5 (11.0-16.0) % Plt Count 339 (160-400) X10*3/uL MPV 8.4 L (9.4-12.4) fL Immature Gran % (Auto) 0.3 (0.0-0.4) % Neut % (Auto) 64.5 (45-73) % Lymph % (Auto) 19.9 L (20-40) % [place] % (Auto) 8.9 (2-11) % Eos % (Auto) 6.2 H (0-4) % Baso % (Auto) 0.2 (0-2) % Lymph # (Auto) 3.0 (1.2-4.9) X10*3/uL [place] # (Auto) 1.4 H (0.1-1.2) X10*3/uL Eos # (Auto) 0.9 H (0.0-0.4) X10*3/uL Baso # (Auto) 0.0 (0.0-0.2) X10*3/uL Abs Immat Gran (auto) 0.05 H (0.00-0.03) X10*3/uL Absolute Neuts (auto) 9.8 H (2.0-8.3) x10*3/uL Absolute Nucleated RBC 0.000 (0.0-0.012) X10*3/uL Nucleated RBC % (auto) 0.0 (0.0-0.2) /100WBC Sodium 138 (135-145) mmol/L Potassium 3.8 (3.3-5.1) mmol/L Chloride 106 (96-108) mmol/L Carbon Dioxide 22 (22-29) mmol/L Anion Gap 14 (12-20) BUN 30 H (9-16) mg/dL Creatinine 1.16 (0.5-1.4) mg/dL Estim Creat Clear Calc 38.9 Estimated GFR 59 Random Glucose 119 H (60-115) mg/dL Calcium 9.0 D (8.4-10.2) mg/dL Total Bilirubin 0.6 (0.0-1.0) mg/dL AST 23 (5-37) U/L ALT 17 (0-40) U/L Alkaline Phosphatase 77 (39-117) U/L Total Protein 7.1 (6.5-8.0) g/dL Albumin 4.0 (3.5-5.0) g/dL Independent Interpretation I performed an independent interpretation of an: EKG, Plain X-Ray and CT Scan Interpretation: paced rhythm no acute STT wave changes no acute ischemia Radiology Impression Discussion of test interpretation with radiology: I have reviewed the radiologist's reading. Discharge Plan Discharge Clinical Impression: Hypoxia, COPD (chronic obstructive pulmonary disease), Left rib fracture, Pneumonia Patient Disposition: Admitted As Inpatient Interventions: Admission Worksheet (ED) Last Done: 01/01/25 00:35 Discharge Date/Time: 01/01/25 01:28
[2024-12-31 16:13] LABS: MANUAL DIFF FLAG NO
[2024-12-31 16:20] LABS: Hematocrit 34.0 % (42.0-52.0); Hemoglobin 11.7 g/dl (14.0-18.0); Imm Gran Abs Auto 0.05 X10*3/uL (0.00-0.03); Imm Gran Pct Auto 0.3 % (0.0-0.4); Lymphocytes Absolute Auto 3.0 X10*3/uL (1.2-4.9); Mean Corpuscular HGB Conc 34.4 g/dl (31.0-36.0); Mean Corpuscular Hemoglobin 29.6 pg (27.0-33.0); Mean Corpuscular Volume 86.1 fL (80.0-98.0); NRBC Abs Auto 0.000 X10*3/uL (0.0-0.012); NRBC Pct Auto 0.0 /100WBC (0.0-0.2); Platelet Count 339 X10*3/uL (160-400); Red Blood Count 3.95 X10*6/uL (4.60-5.80); White Blood Count 15.1 X10*3/uL (4.8-10.8)
[2024-12-31 16:28] LABS: Alanine Aminotransferase 17 U/L (0-40); Albumin Level 4.0 g/dL (3.5-5.0); Alkaline Phosphatase 77 U/L (39-117); Anion Gap 14 (12-20); Aspartate Amino Transferase 23 U/L (5-37); Blood Urea Nitrogen 30 mg/dL (9-16); Calcium 9.0 mg/dL (8.4-10.2); Carbon Dioxide 22 mmol/L (22-29); Chloride 106 mmol/L (96-108); Creatinine Clr Calc Pharmacy 38.9; Estimated Glomerular Filt Rate 59; Potassium 3.8 mmol/L (3.3-5.1); Sodium 138 mmol/L (135-145); Total Protein 7.1 g/dL (6.5-8.0)
[2024-12-31] MEDS: iohexoL 350 MG/ML 100 ML INFUS..BTL 65 ML IV (16:59)
[2024-12-31 19:33] VITALS: BP 143/69; PULSE 67; RESP 20; TEMP 36.4; O2SAT 95
[2024-12-31] MEDS: Albuterol Sulfate 2.5 MG, Albuterol/Iprat 2.5/0.5MG 3 ML 3 ML INHALE (20:26)
[2024-12-31 20:30] VITALS: PULSE 72; RESP 18; O2SAT 86
[2024-12-31 21:14] VITALS: O2SAT 85
--- NOTE | 2024-12-31 21:22 | PM.IMHP ---
History of Present Illness Date of Service: 12/31/24 Chief Complaint: Fall 89-year-old male with a past medical history of HTN, HLD, dm, BCC, COPD, CAD, prostate cancer, mild cognitive impairment, sick sinus syndrome status post cardiac pacemaker, chronic anemia; presented to the hospital with a chief complaint of fall. Patient reports that he was moving the trash and he suddenly tripped and fell over and hit on his right side. Patient reports having chest pain since the fall. Also mentions he has been having cough for the past few days. Mentioned mild shortness of breath. Denies any nausea or vomiting. Denies any urinary symptoms. Review of all other systems is negative except mentioned above ER course: Per ER team, patient on presentation reported chest pain; reproducible; CT chest showed 10-12 rib fractures. No pneumothorax. CT chest also showed pneumonia. Patient was hypoxic to 88%. Slightly diminished breath sounds likely poor respiratory effort. Placed on supplemental oxygen. Given nebulizers. Patient also received IV antibiotics. CT head and CT C-spine showed no acute findings. [facility] Medical History Peripheral edema Chronic anemia New onset type 2 diabetes mellitus Overweight with body mass index (BMI) of 25 to 25.9 in adult Basal cell carcinoma of ear Glucose intolerance Sciatica Lumbar herniated disc Osteoarthritis History of basal cell carcinoma Mucopurulent chronic bronchitis Obstructive airway disease Mild cognitive impairment Mild hypercholesterolemia Coronary artery disease SSS (sick sinus syndrome) Cough COPD (chronic obstructive pulmonary disease) Prostate cancer Eczema Gallstones Nocturia Kidney cysts Kidney stones Hyperlipidemia HTN (hypertension) Prostate cancer Family History Father No problems noted. Mother No problems noted. Surgical History History of colonoscopy History of cholecystectomy History of herniorrhaphy History of right hip replacement History of prostatectomy Social History Housing: House Alcohol intake: current Alcohol intake frequency: holidays/special occasions only Patient Tobacco Use Status: Former Tobacco user Years Smoked: 30 years Smoked in Last 30 Days: No Use of substances other than those prescribed or required for medical reasons: No Advance Directives: No Advance Directives Information Provided: Yes Current occupational status: retired Cognitive needs: Yes (cane) Hearing needs: No Vision needs: Yes (rx glasses) Meds Allergies Allergy/AdvReac Type Severity Reaction Status Date / Time No Known Drug Allergies (NO Allergy Unknown NONE Verified 12/31/24 15:55 KNOWN DRUG ALLERGIES) latex Allergy Rash Uncoded 12/31/24 15:55 Active Medications: Current Medications Acetaminophen (Acetaminophen 325 Mg Tablet) 650 mg PO Q6H PRN PRN Reason: Pain, Mild 1-3,fever,headache Albuterol/Ipratropium (Albuterol/Iprat 2.5/0.5mg 3 Ml Ampul.Neb) 3 ml INHALE Q4H PRN PRN Reason: Shortness of Breath/Wheezing Albuterol/Ipratropium (Albuterol/Iprat 2.5/0.5mg 3 Ml Ampul.Neb) 3 ml INHALE RQ4H WHILE AWAKE YAMIL Benzonatate (Benzonatate 100 Mg Capsule) 100 mg PO TID PRN PRN Reason: Cough Calcium Carbonate (Calcium Carbonate 750 Mg Tab.Chew) 750 mg PO Q4H PRN PRN Reason: Heartburn Ceftriaxone Sodium (Ceftriaxone Sodium 1 Gm Vial) 1 gm IVPUSH Q24H YAMIL Dextrose (Dextrose 50 % 25 Gm/50 Ml Syringe) 25 gm IVPUSH Q15M PRN; Protocol PRN Reason: per Hypoglycemia Standing Ord. Docusate Sodium (Docusate Sodium 100 Mg Capsule) 100 mg PO BID YAMIL Doxycycline Monohydrate (Doxycycline Monohydrate 100 Mg Capsule) 100 mg PO Q12H YAMIL Glucose (Glucose Gel 15 Gm Gel..Gram.) 15 gm PO Q15M PRN; Protocol PRN Reason: per Hypoglycemia Standing Ord. Heparin Sodium (Porcine) (Heparin Sodium,Porcine 5,000 Unit/Ml Vial) 5,000 unit SUBCUT Q8H YAMIL Hydromorphone HCl (Hydromorphone Hcl 0.5 Mg/0.5 Ml Syringe) 0.5 mg IVPUSH Q4H PRN; Protocol PRN Reason: Pain, Severe (Pain Scale 7-10) Doxycycline Hyclate 100 mg/ (Sodium Chloride) 250 mls @ 166.67 mls/hr IV ONCE ONE Stop: 12/31/24 22:39 Insulin Human Lispro (Insulin Lispro 100 Unit/Ml 3 Ml Vial) 0 unit SUBCUT QIDACHS YAMIL; Protocol Magnesium Hydroxide (Milk Of Magnesia 30 Ml Oral.Susp) 30 ml PO DAILY PRN PRN Reason: Constipation Melatonin (Melatonin 3 Mg Tablet) 6 mg PO BEDTIME PRN PRN Reason: Insomnia Sodium Chloride (0.9 % Sodium Chloride Flush 3 Ml Syringe) 3 ml IVFLUSH QSHIFT YAMIL Home Medications ?Medication ?Instructions ?Recorded ?Confirmed ?Last Taken ?Type aspirin 81 mg tablet,delayed 81 mg PO DAILY 08/16/20 12/27/24 Unknown History release betamethasone dipropionate 0.05 % appl topical BID 09/26/20 12/27/24 Unknown History topical cream latanoprost 0.005 % eye drops drp ophthalmic (eye) 07/07/23 12/27/24 Unknown History acetaminophen 500 mg oral powder 500 mg PO Q6H PRN 11/23/24 12/27/24 Unknown History packet (Tylenol Extra Strength) Physical Exam Vital Signs and Narrative: Vital Signs: Last Vital Signs Temp 97.5 F 12/31/24 19:33 Pulse 72 12/31/24 20:30 Resp 18 12/31/24 20:30 BP 143/69 H 12/31/24 19:33 Pulse Ox 85 L 12/31/24 21:14 O2 Del Method Room Air 12/31/24 21:14 O2 Flow Rate 2 12/31/24 19:33 BMI result Body Mass Index 23.7 Gen: Appears be in no acute distress HEENT: NCAT, Moist mucosa. Pulmonary: Coarse breath sounds; chest pain reproducible CVS: Normal S1-S2 Abdomen: BS+, Soft, Nontender Extremities: Warm well perfused Neuro: Alert and awake. Results Labs 12/31/24 16:08 12/31/24 16:08 Labs: Laboratory Results - last 24 hr 12/31/24 16:08 MCV 86.1 MCH 29.6 MCHC 34.4 RDW 14.5 Plt Count 339 MPV 8.4 L Immature Gran % (Auto) 0.3 Neut % (Auto) 64.5 Lymph % (Auto) 19.9 L [place] % (Auto) 8.9 Eos % (Auto) 6.2 H Baso % (Auto) 0.2 Lymph # (Auto) 3.0 [place] # (Auto) 1.4 H Eos # (Auto) 0.9 H Baso # (Auto) 0.0 Abs Immat Gran (auto) 0.05 H Absolute Neuts (auto) 9.8 H Absolute Nucleated RBC 0.000 Nucleated RBC % (auto) 0.0 Anion Gap 14 Estim Creat Clear Calc 38.9 Estimated GFR 59 Random Glucose 119 H Calcium 9.0 D Total Bilirubin 0.6 AST 23 ALT 17 Alkaline Phosphatase 77 Total Protein 7.1 Albumin 4.0 Assessment and Plan (1) Hypoxia: Status: Acute Plan 89-year-old male with a past medical history of HTN, HLD, dm, BCC, COPD, CAD, prostate cancer, mild cognitive impairment, sick sinus syndrome status post cardiac pacemaker, chronic anemia; presented to the hospital with a chief complaint of fall. Admitted for following Fall: Mechanical in nature Exam grossly nonfocal CT head and CT C-spine showed no acute findings. Will also obtain hip x-ray Fall precautions PT/OT when ready for discharge Left-sided rib fractures: CT chest showed 10-12 left rib fractures with no evidence of pneumothorax or hemothorax. Pain control Incentive spirometry Pulmonology consult Right-sided pneumonia: Empirically on ceftriaxone and doxycycline Follow-up cultures COPD: Stable. DuoNebs p.r.n. and standing. Small pericardial effusion: CT chest showed small pericardial effusion Will obtain echocardiogram Based on echo results-will defer to day team to consider cardiology consult in a.m.. Thyroid nodule: Will obtain TSH. Endocrinology follow-up recommended. Pancreatic duct dilation: Outpatient follow-up with GI recommended. Glaucoma: Continue home eye drops once med rec is completed by pharmacy. DVT prophylaxis: SubQ heparin Code status: Full code Quality Stroke Does the patient have a stroke diagnosis?: No VTE Prior VTE?: No VTE Risk Level:: Medical - moderate - high VTE Device Contraindication: Treatment Not Indicated VTE Drug Contraindication: N/A - Med Ordered
[2024-12-31 21:25] VITALS: BP 146/58; PULSE 78; RESP 21; TEMP 36.5; O2SAT 96
[2024-12-31 21:44] LABS: VBG HCO3 25 mmol/L (22-26); VBG O2 % Saturation 81.0 %
[2024-12-31 21:45] LABS: Venous Blood Gas Refer to POC result
[2025-01-01] VITALS (12 sets, daily range): BP systolic 121–148; BP diastolic 52–66; PULSE 65–74; RESP 12–20; TEMP 36.3–37.7; O2SAT 91–93; BMI 23.8
[2025-01-01] MEDS: 0.9 % Sodium Chloride Flush 3 ML SYRINGE IVFLUSH ×3 (02:01→14:53)
[2025-01-01 07:21] LABS: MANUAL DIFF FLAG NO
[2025-01-01 07:30] LABS: Hematocrit 33.5 % (42.0-52.0); Hemoglobin 11.2 g/dl (14.0-18.0); Imm Gran Abs Auto 0.08 X10*3/uL (0.00-0.03); Imm Gran Pct Auto 0.5 % (0.0-0.4); Lymphocytes Absolute Auto 2.3 X10*3/uL (1.2-4.9); Mean Corpuscular HGB Conc 33.4 g/dl (31.0-36.0); Mean Corpuscular Hemoglobin 29.2 pg (27.0-33.0); Mean Corpuscular Volume 87.5 fL (80.0-98.0); NRBC Abs Auto 0.000 X10*3/uL (0.0-0.012); NRBC Pct Auto 0.0 /100WBC (0.0-0.2); Platelet Count 318 X10*3/uL (160-400); Red Blood Count 3.83 X10*6/uL (4.60-5.80); White Blood Count 17.3 X10*3/uL (4.8-10.8)
[2025-01-01 07:45] LABS: Alanine Aminotransferase 94 U/L (0-40); Albumin Level 3.5 g/dL (3.5-5.0); Alkaline Phosphatase 132 U/L (39-117); Anion Gap 14 (12-20); Aspartate Amino Transferase 145 U/L (5-37); Blood Urea Nitrogen 23 mg/dL (9-16); Calcium 8.7 mg/dL (8.4-10.2); Carbon Dioxide 21 mmol/L (22-29); Chloride 108 mmol/L (96-108); Creatinine Clr Calc Pharmacy 49.6; Estimated Glomerular Filt Rate > 60; Potassium 4.0 mmol/L (3.3-5.1); Sodium 139 mmol/L (135-145); Total Protein 6.4 g/dL (6.5-8.0)
[2025-01-01 07:46] LABS: Glucose, Whole Blood 139 mg/dL (60-115)
[2025-01-01] MEDS: Albuterol/Iprat 2.5/0.5MG 3 ML AMPUL.NEB INHALE ×2 (08:34→20:22)
--- NOTE | 2025-01-01 10:28 | PHA.MEDREC ---
Pharmacy Consult ? Medication Reconciliation Pharmacy has completed the medication reconciliation, spoke to patient who asked to call his Dona. Pt's confirmed all medications, said the pt was no longer taking metformin 500mg daily.
[2025-01-01 11:09] LABS: Glucose, Whole Blood 161 mg/dL (60-115)
--- NOTE | 2025-01-01 13:36 | P.PNIM_ITS ---
Subjective Subjective Date of Service: 01/01/25 Interval History: Somnolent and a bit confused likely secondary to Dilaudid. No acute issues otherwise overnight Review of Systems Admits to chest pain with movement cough and deep breath Admits to shortness of breath limited by his pain Denies nausea vomiting diarrhea Denies fever chills Physical Exam 2 Vital Signs: Vital Signs: Last Vital Signs Temp 98.5 F 01/01/25 11:13 Pulse 74 01/01/25 11:13 Resp 12 01/01/25 11:13 BP 132/52 L 01/01/25 11:13 Pulse Ox 93 01/01/25 11:13 O2 Del Method Nasal Cannula 01/01/25 11:13 O2 Flow Rate 2 01/01/25 11:13 BMI result Body Mass Index 23.8 Const: Other: Awake alert no acute distress Chest: Other: Left lateral chest wall tenderness with minimal palpation Resp: Other: Diminished with scant crackles right side. Cardio: Other: No S4; positive S1-S2; no S3 murmurs rubs or gallops GI: Other: Soft nontender nondistended normoactive bowel sounds Extrem: Other: No edema bilaterally Objective Data Active Medications Acetaminophen (Acetaminophen 325 Mg Tablet) 650 mg PO Q6H PRN PRN Reason: Pain, Mild 1-3,fever,headache Albuterol/Ipratropium (Albuterol/Iprat 2.5/0.5mg 3 Ml Ampul.Neb) 3 ml INHALE Q4H PRN PRN Reason: Shortness of Breath/Wheezing Albuterol/Ipratropium (Albuterol/Iprat 2.5/0.5mg 3 Ml Ampul.Neb) 3 ml INHALE RQ4H WHILE AWAKE [facility] Last Admin: 01/01/25 11:13 Dose: Not Given Documented By: SUSHMA Non-Admin Reason: Patient Asleep Benzonatate (Benzonatate 100 Mg Capsule) 100 mg PO TID PRN PRN Reason: Cough Calcium Carbonate (Calcium Carbonate 750 Mg Tab.Chew) 750 mg PO Q4H PRN PRN Reason: Heartburn Ceftriaxone Sodium (Ceftriaxone Sodium 1 Gm Vial) 1 gm IVPUSH Q24H [facility] Dextrose (Dextrose 50 % 25 Gm/50 Ml Syringe) 25 gm IVPUSH Q15M PRN; Protocol PRN Reason: per Hypoglycemia Standing Ord. Docusate Sodium (Docusate Sodium 100 Mg Capsule) 100 mg PO BID [facility] Last Admin: 01/01/25 08:33 Dose: 100 mg Documented By: JAMI Doxycycline Monohydrate (Doxycycline Monohydrate 100 Mg Capsule) 100 mg PO Q12H [facility] Last Admin: 01/01/25 08:34 Dose: 100 mg Documented By: JAMI Glucose (Glucose Gel 15 Gm Gel..Gram.) 15 gm PO Q15M PRN; Protocol PRN Reason: per Hypoglycemia Standing Ord. Heparin Sodium (Porcine) (Heparin Sodium,Porcine 5,000 Unit/Ml Vial) 5,000 unit SUBCUT Q8H [facility] Last Admin: 01/01/25 05:32 Dose: 5,000 unit Documented By: GINO Hydromorphone HCl (Hydromorphone Hcl 0.5 Mg/0.5 Ml Syringe) 0.5 mg IVPUSH Q4H PRN; Protocol PRN Reason: Pain, Severe (Pain Scale 7-10) Last Admin: 01/01/25 12:37 Dose: 0.5 mg Documented By: JAMI Insulin Human Lispro (Insulin Lispro 100 Unit/Ml 3 Ml Vial) 0 unit SUBCUT QIDACHS [facility]; Protocol Last Admin: 01/01/25 12:25 Dose: Not Given Documented By: JAMI Non-Admin Reason: Patient Refused Magnesium Hydroxide (Milk Of Magnesia 30 Ml Oral.Susp) 30 ml PO DAILY PRN PRN Reason: Constipation Melatonin (Melatonin 3 Mg Tablet) 6 mg PO BEDTIME PRN PRN Reason: Insomnia Sodium Chloride (0.9 % Sodium Chloride Flush 3 Ml Syringe) 3 ml IVFLUSH QSHIFT [facility] Last Admin: 01/01/25 08:35 Dose: 3 ml Documented By: JAMI Labs 01/01/25 06:49 01/01/25 06:49 Labs: Laboratory Results - last 24 hr 12/31/24 12/31/24 12/31/24 16:08 21:27 21:39 MCV 86.1 MCH 29.6 MCHC 34.4 RDW 14.5 Plt Count 339 MPV 8.4 L Immature Gran % (Auto) 0.3 Neut % (Auto) 64.5 Lymph % (Auto) 19.9 L [place] % (Auto) 8.9 Eos % (Auto) 6.2 H Baso % (Auto) 0.2 Lymph # (Auto) 3.0 [place] # (Auto) 1.4 H Eos # (Auto) 0.9 H Baso # (Auto) 0.0 Abs Immat Gran (auto) 0.05 H Absolute Neuts (auto) 9.8 H Absolute Nucleated RBC 0.000 Nucleated RBC % (auto) 0.0 VBG pH 7.34 VBG pCO2 45 VBG pO2 52 VBG HCO3 25 VBG O2 Saturation 81.0 VBG Base Excess -0.7 Anion Gap 14 Estim Creat Clear Calc 38.9 Estimated GFR 59 POC Glucose Random Glucose 119 H Lactic Acid 1.5 Calcium 9.0 D Total Bilirubin 0.6 AST 23 ALT 17 Alkaline Phosphatase 77 Total Protein 7.1 Albumin 4.0 01/01/25 01/01/25 01/01/25 06:49 07:41 11:04 MCV 87.5 MCH 29.2 MCHC 33.4 RDW 14.4 Plt Count 318 MPV 8.7 L Immature Gran % (Auto) 0.5 H Neut % (Auto) 77.9 H Lymph % (Auto) 13.3 L [place] % (Auto) 7.8 Eos % (Auto) 0.3 Baso % (Auto) 0.2 Lymph # (Auto) 2.3 [place] # (Auto) 1.3 H Eos # (Auto) 0.1 Baso # (Auto) 0.0 Abs Immat Gran (auto) 0.08 H Absolute Neuts (auto) 13.5 H Absolute Nucleated RBC 0.000 Nucleated RBC % (auto) 0.0 VBG pH VBG pCO2 VBG pO2 VBG HCO3 VBG O2 Saturation VBG Base Excess Anion Gap 14 Estim Creat Clear Calc 49.6 Estimated GFR > 60 POC Glucose 139 H 161 H Random Glucose 142 H Lactic Acid Calcium 8.7 Total Bilirubin 0.6 AST 145 H ALT 94 H Alkaline Phosphatase 132 H Total Protein 6.4 L Albumin 3.5 Assessment and Plan (1) Left rib fracture: Status: Acute (2) Pneumonia: Status: Acute Plan 89-year-old male with a past medical history of HTN, HLD, dm, BCC, COPD, CAD, prostate cancer, mild cognitive impairment, sick sinus syndrome status post cardiac pacemaker, chronic anemia; presented to the hospital with a chief complaint of fall. 1.Left-sided rib fractures: -CT chest showed 10-12 left rib fractures with no evidence of pneumothorax or hemothorax. -pain control ...will utilize IV Tylenol today as Dilaudid made patient somewhat confused -incentive spirometry -Pulmonology consult 2.Right-sided pneumonia: -ceftriaxone/doxycycline(2) -Follow-up cultures 3.Small pericardial effusion: -2D ECHO -FOLLOW UP RESULTS AND TREAT CLINICALLY SubQ heparin Full code Requires ongoing hospitalization for IV antibiotics to treat right-sided pneumonia secondary fractures. Quality Stroke Does the patient have a stroke diagnosis?: No VTE Prior VTE?: No VTE Risk Level:: Medical - moderate - high VTE Device Contraindication: Treatment Not Indicated VTE Drug Contraindication: N/A - Med Ordered
--- NOTE | 2025-01-01 16:24 | PM.CNPUL ---
History of Present Illness History of Present Illness Consult date: 01/01/25 Chief complaint: Fall, hypoxia, rib fracture Narrative: 89-year-old gentleman with underlying COPD under care of Dr. Cavanaugh admitted on 12/31/2024 with a mechanical fall with resultant left-sided 10th through 12th rib fractures, but with no flail chest physiology at this time patient require supplemental oxygen to maintain normal oximetry. His CT chest also demonstrated patient multifocal infiltrate, but no lobar consolidation. He has been treated with empiric antibiotics for community-acquired pneumonia. Review of Systems Constitutional: Constitutional: Denies daytime sleepiness, Denies excessive sweating, Denies fatigue, Denies fever(s), Denies lethargy, Denies malaise, Denies night sweats, Denies snoring and Denies weight loss Eyes: Eyes: Denies blurry vision and Denies itchy eyes ENT: Denies nasal congestion, Denies post nasal drip, Denies sinus pain, Denies sinus pressure and Denies other ( Thrush) Cardiovascular: Cardiovascular: Denies chest pain, Denies pedal edema, Denies dyspnea, Reports dyspnea on exertion, Denies orthopnea and Denies paroxysmal nocturnal dyspnea Respiratory: Respiratory: Denies cough, Denies hemoptysis, Denies excessive phlegm production, Denies dyspnea, Reports dyspnea on exertion, Denies snoring and Denies wheezing Gastrointestinal: Gastrointestinal: Denies abdominal pain and Denies heartburn Musculoskeletal: Musculoskeletal: Denies myalgias, Denies arthralgias and Denies joint swelling Integumentary/Breasts: Skin/Breast: Denies rash Neurologic: Denies memory loss and Denies seizure-like activity Psychiatric: Psychiatric: Denies abnormal sleep pattern, Denies anxiety and Denies memory loss Endocrine: Endocrine: Denies excessive sweating, Denies fatigue and Denies heat intolerance Hematologic/Lymphatic: Hematologic/Lymphatic: Denies easy bruising Allergic/Immunologic: Allergic/Immunologic: Denies itchy eyes, Denies seasonal rhinorrhea and Denies wheezing PMFSH Past Medical History Medical History (Updated 01/01/25 @ 20:51 by Pierre Espino MD) Peripheral edema Chronic anemia New onset type 2 diabetes mellitus Overweight with body mass index (BMI) of 25 to 25.9 in adult Basal cell carcinoma of ear Glucose intolerance Sciatica Lumbar herniated disc Osteoarthritis History of basal cell carcinoma Mucopurulent chronic bronchitis Obstructive airway disease Mild cognitive impairment Mild hypercholesterolemia Coronary artery disease SSS (sick sinus syndrome) Cough COPD (chronic obstructive pulmonary disease) Prostate cancer Eczema Gallstones Nocturia Kidney cysts Kidney stones Hyperlipidemia HTN (hypertension) Prostate cancer Family History Family History Father No problems noted. Mother No problems noted. Surgical History Surgical History History of colonoscopy History of cholecystectomy History of herniorrhaphy History of right hip replacement History of prostatectomy Social History Social History Household Members: Spouse Housing: House Do you presently have visiting nurse or other home services: No Alcohol intake: current Alcohol intake frequency: holidays/special occasions only Patient Tobacco Use Status: Former Tobacco user Years Smoked: 30 years Smoked in Last 30 Days: No Use of substances other than those prescribed or required for medical reasons: No Currently Displaying Signs/Symptoms of Drug Intoxication Withdrawal: No Have you been hit, kicked, punched, or otherwise hurt by someone within the past year? If so, by whom?: No Do you feel safe in your current relationship?: Yes Is there a partner from a previous relationship who is making you feel unsafe now?: No Are you made to feel afraid or neglected: No Spiritual Healthcare Practices: Holiness Advance Directives: No Advance Directives Information Provided: Yes Advance Directives on File: No Do you have a plan to hurt others: No Plan Recently lost weight without trying: No Eating poorly because of decreased appetite: No Nutrition Risks: No Nutritional Risk Poor oral hygiene: No Current occupational status: retired Cognitive needs: Yes (cane) Hearing needs: No Vision needs: Yes (rx glasses) Meds Allergies Allergy/AdvReac Type Severity Reaction Status Date / Time No Known Drug Allergies (NO Allergy Unknown NONE Verified 12/31/24 15:55 KNOWN DRUG ALLERGIES) latex Allergy Rash Uncoded 12/31/24 15:55 Active Medications: Current Medications Acetaminophen (Acetaminophen 325 Mg Tablet) 650 mg PO Q6H PRN PRN Reason: Pain, Mild 1-3,fever,headache Albuterol/Ipratropium (Albuterol/Iprat 2.5/0.5mg 3 Ml Ampul.Neb) 3 ml INHALE Q4H PRN PRN Reason: Shortness of Breath/Wheezing Albuterol/Ipratropium (Albuterol/Iprat 2.5/0.5mg 3 Ml Ampul.Neb) 3 ml INHALE RQ4H WHILE AWAKE [facility] Last Admin: 01/01/25 15:17 Dose: Not Given Amlodipine Besylate (Amlodipine Besylate 10 Mg Tablet) 10 mg PO DAILY [facility]; Protocol Aspirin (Aspirin Enteric Coated 81 Mg Tablet.Dr) 81 mg PO DAILY [facility] Atorvastatin Calcium (Atorvastatin Calcium 40 Mg Tablet) 40 mg PO DAILY [facility] Benzonatate (Benzonatate 100 Mg Capsule) 100 mg PO TID PRN PRN Reason: Cough Calcium Carbonate (Calcium Carbonate 750 Mg Tab.Chew) 750 mg PO Q4H PRN PRN Reason: Heartburn Ceftriaxone Sodium (Ceftriaxone Sodium 1 Gm Vial) 1 gm IVPUSH Q24H [facility] Dextrose (Dextrose 50 % 25 Gm/50 Ml Syringe) 25 gm IVPUSH Q15M PRN; Protocol PRN Reason: per Hypoglycemia Standing Ord. Docusate Sodium (Docusate Sodium 100 Mg Capsule) 100 mg PO BID [facility] Last Admin: 01/01/25 08:33 Dose: 100 mg Doxycycline Monohydrate (Doxycycline Monohydrate 100 Mg Capsule) 100 mg PO Q12H [facility] Last Admin: 01/01/25 08:34 Dose: 100 mg Fluoxetine HCl (Fluoxetine Hcl 20 Mg Capsule) 20 mg PO DAILY [facility] Fluticasone/Vilanterol (Fluticasone/Vilanterol 200/25 Blst.W.Dev) 1 puff INHALE RDAILY [facility] Glucose (Glucose Gel 15 Gm Gel..Gram.) 15 gm PO Q15M PRN; Protocol PRN Reason: per Hypoglycemia Standing Ord. Heparin Sodium (Porcine) (Heparin Sodium,Porcine 5,000 Unit/Ml Vial) 5,000 unit SUBCUT Q8H [facility] Last Admin: 01/01/25 14:48 Dose: 5,000 unit Hydromorphone HCl (Hydromorphone Hcl 0.5 Mg/0.5 Ml Syringe) 0.5 mg IVPUSH Q4H PRN; Protocol PRN Reason: Pain, Severe (Pain Scale 7-10) Last Admin: 01/01/25 12:37 Dose: 0.5 mg Acetaminophen (Ofirmev) 1,000 mg in 100 mls @ 400 mls/hr IV Q6H [facility] Stop: 01/02/25 02:14 Last Infusion: 01/01/25 15:11 Dose: Infused Insulin Human Lispro (Insulin Lispro 100 Unit/Ml 3 Ml Vial) 0 unit SUBCUT QIDACHS [facility]; Protocol Last Admin: 01/01/25 12:25 Dose: Not Given Latanoprost (Latanoprost 0.005 % Ophth [place] 2.5 Ml Drops) 1 drop EYE-BOTH BEDTIME [facility] Magnesium Hydroxide (Milk Of Magnesia 30 Ml Oral.Susp) 30 ml PO DAILY PRN PRN Reason: Constipation Melatonin (Melatonin 3 Mg Tablet) 6 mg PO BEDTIME PRN PRN Reason: Insomnia Sodium Chloride (0.9 % Sodium Chloride Flush 3 Ml Syringe) 3 ml IVFLUSH QSHIFT [facility] Last Admin: 01/01/25 14:53 Dose: 3 ml Vancomycin HCl (Vancomycin Hcl 125 Mg Capsule) 125 mg PO Q6H [facility] Last Admin: 01/01/25 14:48 Dose: 125 mg Home Medications ?Medication ?Instructions ?Recorded ?Confirmed ?Last Taken ?Type aspirin 81 mg tablet,delayed 81 mg PO DAILY 08/16/20 01/01/25 12/31/24 History release latanoprost 0.005 % eye drops 1 drp ophthalmic (eye) BEDTIME 07/07/23 01/01/25 12/30/24 History acetaminophen 500 mg oral powder 500 mg PO Q6H PRN Pain 11/23/24 01/01/25 Unknown History packet (Tylenol Extra Strength) albuterol sulfate 90 mcg/actuation 2 puff inhalation Q4H PRN 01/01/25 01/01/25 Unknown History aerosol inhaler shortness of breath or wheezing ibuprofen 200 mg tablet 400 mg PO Q6H PRN Pain 01/01/25 01/01/25 Unknown History Physical Exam Vital Signs: Vital Signs: Last Vital Signs Temp 98.5 F 01/01/25 15:38 Pulse 67 01/01/25 15:38 Resp 14 01/01/25 15:38 BP 124/56 L 01/01/25 15:38 Pulse Ox 92 01/01/25 15:38 O2 Del Method Nasal Cannula 01/01/25 15:38 O2 Flow Rate 1 01/01/25 15:38 BMI result Body Mass Index 23.8 Const: General: no acute distress, alert and awake Eyes: Sclerae: sclerae normal EOM: EOMs intact bilaterally Neck: Neck: Yes no lymphadenopathy, Yes trachea midline and Yes supple Resp: Effort & Inspection: normal respiratory effort and no respiratory distress Auscultation: clear to auscultation bilaterally Cardio: Rate: regular rate Rhythm: regular rhythm Heart sounds: no gallops, no murmurs and no rubs GI: Palpation (GI): Soft to palpation and Other GI palpation findings present ( Nontender) Auscultation: normal bowel sounds Extrem: General: Yes no pedal edema, No clubbing and No cyanosis Results Laboratory Findings 01/01/25 06:49 01/01/25 06:49 Abnormal lab findings: Abnormal Labs 12/31/24 01/01/25 01/01/25 16:08 06:49 07:41 WBC 15.1 H 17.3 H RBC 3.95 L 3.83 L Hgb 11.7 L 11.2 L Hct 34.0 L 33.5 L MPV 8.4 L 8.7 L Immature Gran % (Auto) 0.5 H Neut % (Auto) 77.9 H Lymph % (Auto) 19.9 L 13.3 L Eos % (Auto) 6.2 H [place] # (Auto) 1.4 H 1.3 H Eos # (Auto) 0.9 H Abs Immat Gran (auto) 0.05 H 0.08 H Absolute Neuts (auto) 9.8 H 13.5 H Carbon Dioxide 21 L BUN 30 H 23 H POC Glucose 139 H Random Glucose 119 H 142 H AST 145 H ALT 94 H Alkaline Phosphatase 132 H Total Protein 6.4 L 01/01/25 11:04 WBC RBC Hgb Hct MPV Immature Gran % (Auto) Neut % (Auto) Lymph % (Auto) Eos % (Auto) [place] # (Auto) Eos # (Auto) Abs Immat Gran (auto) Absolute Neuts (auto) Carbon Dioxide BUN POC Glucose 161 H Random Glucose AST ALT Alkaline Phosphatase Total Protein Assessment and Plan (1) COPD (chronic obstructive pulmonary disease): Status: Acute (2) Hypoxia: Status: Acute (3) Ribs, multiple fractures: Status: Acute Plan Impression: 89-year-old gentleman admitted with acute hypoxic respiratory failure with left-sided 9th through 12th rib fractures after mechanical fall in treated empirically community-acquired pneumonia on the background of underlying severe COPD. Does not appear to have significant lobar pneumonia, though does have patchy to focal infiltrates. No evidence of flail chest physiology. Recommendations: Agree with empiric coverage for community-acquired pneumonia. Continue to titrate off supplemental oxygen as tolerated. Will switch Breo to Trelegy. Continue nebulized duo nebs. Does not require thoracic surgery evaluation at this time. Procedures Date of Service Date of Service: 01/01/25
[2025-01-01 16:40] LABS: Glucose, Whole Blood 103 mg/dL (60-115)
[2025-01-01] MEDS: Latanoprost 0.005 % Ophth Sol 2.5 ML DROPS 1 DROP EYE-BOTH (20:06)
[2025-01-01 20:54] LABS: Glucose, Whole Blood 119 mg/dL (60-115)
[2025-01-02] VITALS (8 sets, daily range): BP systolic 122–172; BP diastolic 54–77; PULSE 65–91; RESP 12–18; TEMP 36.6–37.5; O2SAT 90–95
--- NOTE | 2025-01-02 04:28 | PC.NURSE ---
Addendum entered by Donita Sorto RN 01/02/25 05:27: received order to straight cath patient. patient was able to void a small amount but bladder scanned again and 446cc for PVR. This RN and a second RN attempted to straight cath patient without success. aware and stated to reassess in 2 hrs, if pt has trouble voiding, bladder scan. Will report to oncoming RN. Original Note: patient complaining of bladder pressure and unable to void, Bladder scan reads [address] Colindres notified and stated to check again in 2 hrs. Restated that patient is uncomfortable and in pain, Md aware and no new orders.
--- NOTE | 2025-01-02 07:00 | CA_ITS ---
Transthoracic Echocardiogram Patient (Last, First, Middle): Mike Kemp E Gender: Male Date of : 1935 Age: 89 Procedure Date: 01/02/2025 Procedure Type: Transthoracic Echocardiogram Location: [facility] [place] Height: 167.64 cm Weight: 66.68 kg BSA: 1.75 m2 Heart Rate: 78 bpm BP: 172 / 60 mmHg [employer] Supervisor: SB Referring MD: Rahul Colindres MD Symptoms: Pericardial effusion Study Quality: Adequate ECG Rhythm: Paced Conclusions: - Normal left ventricular size and systolic function. There is mildly increased left ventricular wall thickness. The visually estimated ejection fraction is between 55-60%. - Normal right ventricular cavity size and systolic function. There is a pacemaker wire seen in the right ventricle. - There is a small pericardial effusion. There are no definitive echocardiographic findings of tamponade physiology. Findings Left Ventricle Normal left ventricular size and systolic function. There is mildly increased left ventricular wall thickness. The visually estimated ejection fraction is between 55-60%. There is no evidence of regional wall motion abnormalities. Diastolic function is normal for age. Right Ventricle Normal right ventricular cavity size and systolic function. There is a pacemaker wire seen in the right ventricle. Atria The left atrium is normal in size. The right atrium is normal in size. Aortic Valve Normal aortic valve structure and function. There is no aortic valve stenosis. There is no aortic valve regurgitation. Mitral Valve Normal mitral valve structure and function. There is no mitral valve regurgitation. There is no mitral valve stenosis. Pulmonic Valve The pulmonic valve is normal. There is no pulmonic valve regurgitation. Tricuspid Valve Normal tricuspid valve structure. There is no tricuspid valve regurgitation. Tricuspid regurgitation envelope is inadequate for calculation of right ventricular systolic pressure. Normal right atrial pressure. Great Vessels All visible segments of the aorta are normal in size. The visualized portions of the pulmonary artery and branches are normal. Venous The inferior vena cava is normal in size and collapses greater than 50% with inspiration. Pericardium/Pleural There is a small pericardial effusion. There are no definitive echocardiographic findings of tamponade physiology. Measurements 2D Linear Measurements IVSd: 1.21 0.6-0.9/0.6-1.0 cm LVIDd: 4.14 3.9-5.3/4.2-5.9 cm LVIDd Index: 2.37 2.4-3.2/2.2-3.1 cm/m2 LVIDs: 3.06 2.0-3.6 cm LVPWd: 1.06 0.7-1.1 cm LA Diam: 3.90 2.7-3.8/3.0-4.0 cm LAIDs Index: 2.23 1.5-2.3 cm/m2 LV Mass: 200.11 67-162/88-224 g LV Mass Index: 114.35 43-95/49-115 g/m2 LVOT Diam: 2.00 3.0+(-)1.3 cm 2D Systolic Function EF 4C: 51.00 >55% EF 2C: 57.40 >55% EF BiP: 54.80 >55% Mitral Valve MV Pk E: 0.59 MV PK A: 0.80 MV Decel Time: 229.00 E/A: 0.70 E'Lateral: 8.49 E'Medial: 6.31 E/E' Med: 9.40 E/E' Lat: 7.00 PHT: 67.00 MVA PHT: 3.28 Decel [place]: 2.58 Aortic Valve AoV Pk Kenneth: 1.65 AoV Pk Grad: 11.00 ANGELICA: 1.90 LVOT LVOT Pk Kenneth: 0.99 LVOT Mn Kenneth: 0.64 LVOT VTI: 0.22 LVOT Pk Grad: 4.00 LVOT Mn Grad: 2.00 LVOT Diam: 2.00 LVOT Area: 3.14 Diastolic Function MV Pk E: 0.59 MV Pk A: 0.80 E/A: 0.70 E'Medial: 6.31 E/E' Med: 9.40 E' Laterial: 8.49 E/E' Lat: 7.00 Right Ventricle TAPSE (mm): 20.00 Tricuspid Valve RA Press: 3.00 Great Vessels Aorta Sinus of Valsalva: 3.30 2.0-3.5 cm Ao Asc: 3.30 2.1-3.4 cm Pulmonary Valve PV Pk Kenneth: 0.96 Peak PV Grad: 4.00 Updated in Other Vendor System with Status of Final [place] Boone MD electronically signed on 01/02/2025 3:02:52 PM with status of Final
[2025-01-02 07:10] LABS: Glucose, Whole Blood 143 mg/dL (60-115)
[2025-01-02 07:12] LABS: MANUAL DIFF FLAG NO
[2025-01-02 07:16] LABS: Hematocrit 35.1 % (42.0-52.0); Hemoglobin 12.0 g/dl (14.0-18.0); Imm Gran Abs Auto 0.09 X10*3/uL (0.00-0.03); Imm Gran Pct Auto 0.6 % (0.0-0.4); Lymphocytes Absolute Auto 2.9 X10*3/uL (1.2-4.9); Mean Corpuscular HGB Conc 34.2 g/dl (31.0-36.0); Mean Corpuscular Hemoglobin 29.1 pg (27.0-33.0); Mean Corpuscular Volume 85.2 fL (80.0-98.0); NRBC Abs Auto 0.000 X10*3/uL (0.0-0.012); NRBC Pct Auto 0.0 /100WBC (0.0-0.2); Platelet Count 343 X10*3/uL (160-400); Red Blood Count 4.12 X10*6/uL (4.60-5.80); White Blood Count 16.3 X10*3/uL (4.8-10.8)
[2025-01-02 07:34] LABS: Alanine Aminotransferase 110 U/L (0-40); Albumin Level 3.7 g/dL (3.5-5.0); Alkaline Phosphatase 138 U/L (39-117); Anion Gap 14 (12-20); Aspartate Amino Transferase 85 U/L (5-37); Blood Urea Nitrogen 29 mg/dL (9-16); Calcium 9.1 mg/dL (8.4-10.2); Carbon Dioxide 22 mmol/L (22-29); Chloride 105 mmol/L (96-108); Creatinine Clr Calc Pharmacy 39.2; Estimated Glomerular Filt Rate 60; Potassium 3.6 mmol/L (3.3-5.1); Sodium 137 mmol/L (135-145); Total Protein 7.0 g/dL (6.5-8.0)
[2025-01-02] MEDS: 0.9 % Sodium Chloride Flush 3 ML SYRINGE IVFLUSH ×2 (08:00→14:34)
--- NOTE | 2025-01-02 09:24 | P.PNIM_ITS ---
Subjective Subjective Date of Service: 01/02/25 Interval History: Seen and evaluated feels little better pain under fair control had 10 beats of Narrow complex Tachycardia no other events Review of Systems Review of Systems: Yes all other systems are reviewed and are negative Physical Exam 2 Vital Signs: Vital Signs: Last Vital Signs Temp 99.2 F 01/02/25 08:00 Pulse 91 01/02/25 08:00 Resp 17 01/02/25 08:00 BP 164/77 H 01/02/25 08:00 Pulse Ox 92 01/02/25 08:00 O2 Del Method Nasal Cannula 01/02/25 08:00 O2 Flow Rate 2 01/02/25 08:00 BMI result Body Mass Index 23.8 Const: Other: Constitutional : Awake, interactive, not in distress Neck : Normal inspection, Supple Cardiovascular : RRR, no JVP, no lower extremity edema Respiratory : improved bilateral air entry, no crackles, wheezes or rhonchi, on O2 supplement Gastrointestinal: soft, lax, Normal bowel sounds, Non tender Skin : Warm, Dry Neurological : Alert & oriented x3, No focal deficit Objective Data Active Medications Acetaminophen (Acetaminophen 325 Mg Tablet) 650 mg PO Q6H PRN PRN Reason: Pain, Mild 1-3,fever,headache Albuterol/Ipratropium (Albuterol/Iprat 2.5/0.5mg 3 Ml Ampul.Neb) 3 ml INHALE Q4H PRN PRN Reason: Shortness of Breath/Wheezing Albuterol/Ipratropium (Albuterol/Iprat 2.5/0.5mg 3 Ml Ampul.Neb) 3 ml INHALE RQ4H WHILE AWAKE [facility] Last Admin: 01/02/25 07:49 Dose: Not Given Documented By: ANYA Non-Admin Reason: Patient Refused Amlodipine Besylate (Amlodipine Besylate 10 Mg Tablet) 10 mg PO DAILY [facility]; Protocol Aspirin (Aspirin Enteric Coated 81 Mg Tablet.Dr) 81 mg PO DAILY [facility] Atorvastatin Calcium (Atorvastatin Calcium 40 Mg Tablet) 40 mg PO DAILY [facility] Benzonatate (Benzonatate 100 Mg Capsule) 100 mg PO TID PRN PRN Reason: Cough Calcium Carbonate (Calcium Carbonate 750 Mg Tab.Chew) 750 mg PO Q4H PRN PRN Reason: Heartburn Ceftriaxone Sodium (Ceftriaxone Sodium 1 Gm Vial) 1 gm IVPUSH Q24H [facility] Last Admin: 01/01/25 20:05 Dose: 1 gm Documented By: ANDRZEJ Comments: ok by briseyda to give early Dextrose (Dextrose 50 % 25 Gm/50 Ml Syringe) 25 gm IVPUSH Q15M PRN; Protocol PRN Reason: per Hypoglycemia Standing Ord. Docusate Sodium (Docusate Sodium 100 Mg Capsule) 100 mg PO BID [facility] Last Admin: 01/01/25 20:00 Dose: 100 mg Documented By: ANDRZEJ Doxycycline Monohydrate (Doxycycline Monohydrate 100 Mg Capsule) 100 mg PO Q12H [facility] Last Admin: 01/01/25 20:06 Dose: 100 mg Documented By: ANDRZEJ Comments: ok by briseyda to give early Fluoxetine HCl (Fluoxetine Hcl 20 Mg Capsule) 20 mg PO DAILY [facility] Fluticasone/Umeclidinium/Vilanterol (Fluticasone/Umeclidinium/Vilanterol 200/62.5/25 Blst.W.Dev) 1 puff INHALE RDAILY [facility] Last Admin: 01/02/25 07:49 Dose: Not Given Documented By: ANYA Non-Admin Reason: Patient Refused Glucose (Glucose Gel 15 Gm Gel..Gram.) 15 gm PO Q15M PRN; Protocol PRN Reason: per Hypoglycemia Standing Ord. Heparin Sodium (Porcine) (Heparin Sodium,Porcine 5,000 Unit/Ml Vial) 5,000 unit SUBCUT Q8H [facility] Last Admin: 01/02/25 06:15 Dose: 5,000 unit Documented By: ANDRZEJ Hydromorphone HCl (Hydromorphone Hcl 0.5 Mg/0.5 Ml Syringe) 0.5 mg IVPUSH Q4H PRN; Protocol PRN Reason: Pain, Severe (Pain Scale 7-10) Last Admin: 01/01/25 20:00 Dose: 0.5 mg Documented By: ANDRZEJ Insulin Human Lispro (Insulin Lispro 100 Unit/Ml 3 Ml Vial) 0 unit SUBCUT QIDACHS [facility]; Protocol Last Admin: 01/02/25 08:48 Dose: Not Given Documented By: PATRIC Non-Admin Reason: No Insulin Coverage Latanoprost (Latanoprost 0.005 % Ophth Ciara 2.5 Ml Drops) 1 drop EYE-BOTH BEDTIME [facility] Last Admin: 01/01/25 20:06 Dose: 1 drop Documented By: ANDRZEJ Magnesium Hydroxide (Milk Of Magnesia 30 Ml Oral.Susp) 30 ml PO DAILY PRN PRN Reason: Constipation Melatonin (Melatonin 3 Mg Tablet) 6 mg PO BEDTIME PRN PRN Reason: Insomnia Sodium Chloride (0.9 % Sodium Chloride Flush 3 Ml Syringe) 3 ml IVFLUSH QSHIFT [facility] Last Admin: 01/01/25 23:34 Dose: Not Given Documented By: ANDRZEJ Non-Admin Reason: IV Running Vancomycin HCl (Vancomycin Hcl 125 Mg Capsule) 125 mg PO Q6H [facility] Last Admin: 01/02/25 02:50 Dose: 125 mg Documented By: ANDRZEJ Labs 01/02/25 07:10 01/02/25 06:58 Labs: Laboratory Results - last 24 hr 01/01/25 01/01/25 01/01/25 11:04 16:35 20:50 MCV MCH MCHC RDW Plt Count MPV Immature Gran % (Auto) Neut % (Auto) Lymph % (Auto) Hoke % (Auto) Eos % (Auto) Baso % (Auto) Lymph # (Auto) [place] # (Auto) Eos # (Auto) Baso # (Auto) Abs Immat Gran (auto) Absolute Neuts (auto) Absolute Nucleated RBC Nucleated RBC % (auto) Anion Gap Estim Creat Clear Calc Estimated GFR POC Glucose 161 H 103 119 H Fasting Glucose Calcium Total Bilirubin AST ALT Alkaline Phosphatase Total Protein Albumin 01/02/25 01/02/25 01/02/25 06:58 07:01 07:10 MCV 85.2 MCH 29.1 MCHC 34.2 RDW 14.5 Plt Count 343 MPV 8.7 L Immature Gran % (Auto) 0.6 H Neut % (Auto) 73.4 H Lymph % (Auto) 17.6 L Hoke % (Auto) 7.2 Eos % (Auto) 1.1 Baso % (Auto) 0.1 Lymph # (Auto) 2.9 Hoke # (Auto) 1.2 Eos # (Auto) 0.2 Baso # (Auto) 0.0 Abs Immat Gran (auto) 0.09 H Absolute Neuts (auto) 12.0 H Absolute Nucleated RBC 0.000 Nucleated RBC % (auto) 0.0 Anion Gap 14 Estim Creat Clear Calc 39.2 Estimated GFR 60 POC Glucose 143 H Fasting Glucose 146 H Calcium 9.1 Total Bilirubin 0.6 AST 85 H ALT 110 H Alkaline Phosphatase 138 H Total Protein 7.0 Albumin 3.7 Microbiology Microbiology Results: Microbiology 12/31/24 21:27 Blood Culture - Preliminary Blood - Venous No growth after 24 hours. 12/31/24 21:27 Blood Culture - Preliminary Blood - Venous No growth after 24 hours. Assessment and Plan (1) Ribs, multiple fractures: Status: Acute (2) Pneumonia: Status: Acute (3) Left rib fracture: Status: Acute (4) Hypoxia: Status: Acute Plan 89-year-old male with a past medical history of HTN, HLD, dm, BCC, COPD, CAD, prostate cancer, mild cognitive impairment, sick sinus syndrome status post cardiac pacemaker, chronic anemia; presented to the hospital with a chief complaint of fall. Left-sided multiple ribs fractures CT chest showed 10-12 left rib fractures with no evidence of pneumothorax or hemothorax. pain control w PO Tylenol today prn Naproxen 1 small dose given PRN IV Dilaudid incentive spirometry Pulmonology consult, switch Breo to Trelegy PT eval acute Hypoxia 2/2 Right-sided pneumonia: On O2 supplement Continue ceftriaxone/doxycycline Follow-up cultures Small pericardial effusion: pending 2D ECHO Urine retention, acute Start Tamsulosin Straight cath for now SubQ heparin Full code Requires ongoing hospitalization for IV antibiotics to treat right-sided pneumonia secondary fractures. Quality Stroke Does the patient have a stroke diagnosis?: No VTE Prior VTE?: No VTE Risk Level:: Medical - moderate - high VTE Device Contraindication: Treatment Not Indicated VTE Drug Contraindication: N/A - Med Ordered
[2025-01-02] MEDS: Aspirin Enteric Coated 81 MG TABLET.DR PO (09:47)
--- NOTE | 2025-01-02 09:53 | MHC.CM.PN ---
IMM 01/02. Pt self-care, lives at home with his /HCP, copy of HCP requested. Pt will arrange his own transport home at discharge. Pt is unsure of his PCP's name as he has a new one.
[2025-01-02] MEDS: Potassium Chloride Packet 20 MEQ PACKET 40 MEQ PO (09:55)
[2025-01-02 09:58] LABS: Magnesium 1.8 mg/dL (1.6-2.6)
--- NOTE | 2025-01-02 11:48 | PC.NURSE ---
Bladder scan at 0730 was 530cc provider made aware and patient unable to void. SC x1 ordered. 0758 SC patient for 600cc.
[2025-01-02] MEDS: Magnesium Sulfate/H2O 2 GM/50 ML PIGGYBACK IV (12:14)
--- NOTE | 2025-01-02 13:37 | MHC.CM.PN ---
PT evaluated pt and have recommended STR. This CM met with pt and his present at bedside to discuss STR options. Pt is agreeable to going, states [facility] is his first choice, referral sent, awaiting bed offer. List of other local SNF options also printed from [facility] and given to to consider in the even that [facility] doesn't have a bed. Per MD rounds, pt will likely be ready for discharge by tomorrow.
[2025-01-02 16:12] LABS: Glucose, Whole Blood 147 mg/dL (60-115)
[2025-01-02 16:28] LABS: Glucose, Whole Blood 114 mg/dL (60-115)
[2025-01-02] MEDS: Latanoprost 0.005 % Ophth Sol 2.5 ML DROPS 1 DROP EYE-BOTH (20:02)
[2025-01-02 20:29] LABS: Glucose, Whole Blood 128 mg/dL (60-115)
[2025-01-03] VITALS (12 sets, daily range): BP systolic 112–160; BP diastolic 60–75; PULSE 64–91; RESP 16–20; TEMP 36.6–37.9; O2SAT 85–95
[2025-01-03 07:09] LABS: MANUAL DIFF FLAG NO
[2025-01-03 07:14] LABS: Hematocrit 30.4 % (42.0-52.0); Hemoglobin 10.3 g/dl (14.0-18.0); Imm Gran Abs Auto 0.05 X10*3/uL (0.00-0.03); Imm Gran Pct Auto 0.4 % (0.0-0.4); Lymphocytes Absolute Auto 2.5 X10*3/uL (1.2-4.9); Mean Corpuscular HGB Conc 33.9 g/dl (31.0-36.0); Mean Corpuscular Hemoglobin 29.3 pg (27.0-33.0); Mean Corpuscular Volume 86.6 fL (80.0-98.0); NRBC Abs Auto 0.000 X10*3/uL (0.0-0.012); NRBC Pct Auto 0.0 /100WBC (0.0-0.2); Platelet Count 329 X10*3/uL (160-400); Red Blood Count 3.51 X10*6/uL (4.60-5.80); White Blood Count 11.6 X10*3/uL (4.8-10.8)
[2025-01-03 07:34] LABS: Anion Gap 12 (12-20); Blood Urea Nitrogen 33 mg/dL (9-16); Calcium 8.6 mg/dL (8.4-10.2); Carbon Dioxide 24 mmol/L (22-29); Chloride 107 mmol/L (96-108); Creatinine Clr Calc Pharmacy 42.2; Estimated Glomerular Filt Rate > 60; Potassium 3.8 mmol/L (3.3-5.1); Sodium 139 mmol/L (135-145)
[2025-01-03 07:55] LABS: Glucose, Whole Blood 126 mg/dL (60-115)
[2025-01-03] MEDS: Albuterol/Iprat 2.5/0.5MG 3 ML AMPUL.NEB INHALE ×3 (08:06→19:40)
[2025-01-03] MEDS: Fluticasone/Umeclidinium/Vilanterol 200/62.5/25 BLST.W.DEV 1 PUFF INHALE (08:06)
[2025-01-03 09:39] LABS: Magnesium 2.3 mg/dL (1.6-2.6)
[2025-01-03] MEDS: Aspirin Enteric Coated 81 MG TABLET.DR PO (09:54)
[2025-01-03] MEDS: Potassium Chloride ER 20 MEQ TAB.ER.PRT PO (09:54)
[2025-01-03] MEDS: 0.9 % Sodium Chloride Flush 3 ML SYRINGE IVFLUSH ×3 (09:55→21:23)
[2025-01-03 11:57] LABS: Glucose, Whole Blood 126 mg/dL (60-115)
--- NOTE | 2025-01-03 13:32 | MHC.CM.PN ---
HCP completed with pt, now on file.
--- NOTE | 2025-01-03 13:58 | P.CONCA_ITS ---
History of Present Illness History of Present Illness Date of Service: 01/03/25 Requesting physician: Kyle Machuca Chief complaint: pericardial effusion, PNA Narrative: [age] year gentleman who is presenting for rib fractures and pneumonia. Recently the found him on the floor outside the house. He said he was putting some cardboard in the trash pains when he fell. Quite vague about what happened. The said that he did not come in for long time and she came out and found him on the floor. Apparently had rib fractures at that time. Subsequently became short of breath and was taken back to the emergency department where pneumonia was diagnosed and he was admitted. He had imaging done which has shown small pericardial effusion. We have been consulted for that. He also has been getting short runs of atrial tachycardia. He is asymptomatic from tachycardia point of view. [facility] Past Medical History Medical History (Updated 01/03/25 @ 14:01 by Hamlet Boone MD) Peripheral edema Chronic anemia New onset type 2 diabetes mellitus Overweight with body mass index (BMI) of 25 to 25.9 in adult Basal cell carcinoma of ear Glucose intolerance Sciatica Lumbar herniated disc Osteoarthritis History of basal cell carcinoma Mucopurulent chronic bronchitis Obstructive airway disease Mild cognitive impairment Mild hypercholesterolemia Coronary artery disease SSS (sick sinus syndrome) Cough COPD (chronic obstructive pulmonary disease) Prostate cancer Eczema Gallstones Nocturia Kidney cysts Kidney stones Hyperlipidemia HTN (hypertension) Prostate cancer Family History Family History Father No problems noted. Mother No problems noted. Surgical History Surgical History History of colonoscopy History of cholecystectomy History of herniorrhaphy History of right hip replacement History of prostatectomy Social History Social History Household Members: Spouse Housing: House Do you presently have visiting nurse or other home services: No Alcohol intake: current Alcohol intake frequency: holidays/special occasions only Patient Tobacco Use Status: Former Tobacco user Years Smoked: 30 years Smoked in Last 30 Days: No Use of substances other than those prescribed or required for medical reasons: No Currently Displaying Signs/Symptoms of Drug Intoxication Withdrawal: No Have you been hit, kicked, punched, or otherwise hurt by someone within the past year? If so, by whom?: No Do you feel safe in your current relationship?: Yes Is there a partner from a previous relationship who is making you feel unsafe now?: No Are you made to feel afraid or neglected: No Spiritual Healthcare Practices: Zoroastrianism Advance Directives: No Advance Directives Information Provided: Yes Advance Directives on File: No Do you have a plan to hurt others: No Plan Recently lost weight without trying: No Eating poorly because of decreased appetite: No Nutrition Risks: No Nutritional Risk Poor oral hygiene: No service: No Current occupational status: retired Cognitive needs: Yes (cane) Hearing needs: No Vision needs: Yes (rx glasses) Meds Allergies Allergy/AdvReac Type Severity Reaction Status Date / Time No Known Drug Allergies (NO Allergy Unknown NONE Verified 12/31/24 15:55 KNOWN DRUG ALLERGIES) latex Allergy Rash Uncoded 12/31/24 15:55 Active Medications: Current Medications Acetaminophen (Acetaminophen 325 Mg Tablet) 650 mg PO Q6H PRN PRN Reason: Pain, Mild 1-3,fever,headache Albuterol/Ipratropium (Albuterol/Iprat 2.5/0.5mg 3 Ml Ampul.Neb) 3 ml INHALE Q4H PRN PRN Reason: Shortness of Breath/Wheezing Albuterol/Ipratropium (Albuterol/Iprat 2.5/0.5mg 3 Ml Ampul.Neb) 3 ml INHALE RQ4H WHILE AWAKE [facility] Last Admin: 01/03/25 11:54 Dose: 3 ml Amlodipine Besylate (Amlodipine Besylate 10 Mg Tablet) 10 mg PO DAILY [facility]; Protocol Last Admin: 01/03/25 09:54 Dose: 10 mg Aspirin (Aspirin Enteric Coated 81 Mg Tablet.Dr) 81 mg PO DAILY [facility] Last Admin: 01/03/25 09:54 Dose: 81 mg Atorvastatin Calcium (Atorvastatin Calcium 40 Mg Tablet) 40 mg PO DAILY [facility] Last Admin: 01/03/25 09:54 Dose: 40 mg Benzonatate (Benzonatate 100 Mg Capsule) 100 mg PO TID PRN PRN Reason: Cough Calcium Carbonate (Calcium Carbonate 750 Mg Tab.Chew) 750 mg PO Q4H PRN PRN Reason: Heartburn Ceftriaxone Sodium (Ceftriaxone Sodium 1 Gm Vial) 1 gm IVPUSH Q24H [facility] Last Admin: 01/02/25 20:01 Dose: 1 gm Dextrose (Dextrose 50 % 25 Gm/50 Ml Syringe) 25 gm IVPUSH Q15M PRN; Protocol PRN Reason: per Hypoglycemia Standing Ord. Docusate Sodium (Docusate Sodium 100 Mg Capsule) 100 mg PO BID [facility] Last Admin: 01/03/25 09:54 Dose: 100 mg Doxycycline Monohydrate (Doxycycline Monohydrate 100 Mg Capsule) 100 mg PO Q12H [facility] Last Admin: 01/03/25 09:54 Dose: 100 mg Fluoxetine HCl (Fluoxetine Hcl 20 Mg Capsule) 20 mg PO DAILY [facility] Last Admin: 01/03/25 09:54 Dose: 20 mg Fluticasone/Umeclidinium/Vilanterol (Fluticasone/Umeclidinium/Vilanterol 200/62.5/25 Blst.W.Dev) 1 puff INHALE RDAILY [facility] Last Admin: 01/03/25 08:06 Dose: 1 puff Glucose (Glucose Gel 15 Gm Gel..Gram.) 15 gm PO Q15M PRN; Protocol PRN Reason: per Hypoglycemia Standing Ord. Heparin Sodium (Porcine) (Heparin Sodium,Porcine 5,000 Unit/Ml Vial) 5,000 unit SUBCUT Q8H [facility] Last Admin: 01/03/25 06:27 Dose: 5,000 unit Hydromorphone HCl (Hydromorphone Hcl 0.5 Mg/0.5 Ml Syringe) 0.25 mg IVPUSH Q4H PRN; Protocol PRN Reason: Pain, Severe (Pain Scale 7-10) Insulin Human Lispro (Insulin Lispro 100 Unit/Ml 3 Ml Vial) 0 unit SUBCUT QIDACHS [facility]; Protocol Last Admin: 01/03/25 12:06 Dose: Not Given Latanoprost (Latanoprost 0.005 % Ophth Ciara 2.5 Ml Drops) 1 drop EYE-BOTH BEDTIME [facility] Last Admin: 01/02/25 20:02 Dose: 1 drop Magnesium Hydroxide (Milk Of Magnesia 30 Ml Oral.Susp) 30 ml PO DAILY PRN PRN Reason: Constipation Melatonin (Melatonin 3 Mg Tablet) 6 mg PO BEDTIME PRN PRN Reason: Insomnia Sodium Chloride (0.9 % Sodium Chloride Flush 3 Ml Syringe) 3 ml IVFLUSH QSHIFT [facility] Last Admin: 01/03/25 09:55 Dose: 3 ml Tamsulosin HCl (Tamsulosin Hcl 0.4 Mg Capsule) 0.4 mg PO DAILY [facility] Last Admin: 01/03/25 09:54 Dose: 0.4 mg Home Medications ?Medication ?Instructions ?Recorded ?Confirmed ?Last Taken ?Type aspirin 81 mg tablet,delayed 81 mg PO DAILY 08/16/20 0 01/01/25 12/31/24 History release latanoprost 0.005 % eye drops 1 drp ophthalmic (eye) B EDTIME 07/07/23 01/01/25 12/30/24 History acetaminophen 500 mg oral powder 500 mg PO Q6H PRN Shannan n 11/23/24 01/01/25 Unknown History packet (Tylenol Extra Strength) albuterol sulfate 90 mcg/actuation 2 puff inhalation Q 4H PRN 01/01/25 01/01/25 Unknown History aerosol inhaler shortness of breath or wheez ing ibuprofen 200 mg tablet 400 mg PO Q6H PRN Pain 01/0101/01/25 Unknown History Physical Exam 2 Vital Signs: Vital Signs: Last Vital Signs Temp 99.3 F 01/03/25 11:33 Pulse 82 01/03/25 11:56 Resp 19 01/03/25 11:56 BP 152/75 H 01/03/25 11:33 Pulse Ox 93 01/03/25 11:33 O2 Del Method Nasal Cannula 01/03/25 11:33 O2 Flow Rate 2 01/03/25 11:33 BMI result Body Mass Index 23.8 GENERAL APPEARANCE: Elderly gentleman. On supplemental oxygen and getting nebulizer treatment. NECK: no carotid bruit, no jugular venous distention. SKIN: no suspicious lesions, warm and dry. HEART: no murmurs, regular rate and rhythm. LUNGS: clear to auscultation bilaterally. Left-sided rib tenderness. ABDOMEN: soft, nontender. EXTREMITIES: no edema. PERIPHERAL PULSES: equal. NEUROLOGIC: No gross deficits, AAO X 3 Objective Labs and Meds 01/03/25 06:31 01/03/25 06:31 Lab results: Laboratory Results - last 24 hr 01/02/25 01/02/25 01/02/25 11:18 16:21 20:20 WBC RBC Hgb Hct MCV MCH MCHC RDW Plt Count MPV Immature Gran % (Auto) Neut % (Auto) Lymph % (Auto) Elliott % (Auto) Eos % (Auto) Baso % (Auto) Lymph # (Auto) Elliott # (Auto) Eos # (Auto) Baso # (Auto) Abs Immat Gran (auto) Absolute Neuts (auto) Absolute Nucleated RBC Nucleated RBC % (auto) Sodium Potassium Chloride Carbon Dioxide Anion Gap BUN Creatinine Estim Creat Clear Calc Estimated GFR POC Glucose 147 H 114 128 H Random Glucose Calcium Magnesium 01/03/25 01/03/25 01/03/25 06:31 07:44 11:44 WBC 11.6 H RBC 3.51 L Hgb 10.3 L Hct 30.4 L MCV 86.6 MCH 29.3 MCHC 33.9 RDW 14.6 Plt Count 329 MPV 8.9 L Immature Gran % (Auto) 0.4 Neut % (Auto) 65.1 Lymph % (Auto) 21.3 Elliott % (Auto) 10.5 Eos % (Auto) 2.5 Baso % (Auto) 0.2 Lymph # (Auto) 2.5 Elliott # (Auto) 1.2 Eos # (Auto) 0.3 Baso # (Auto) 0.0 Abs Immat Gran (auto) 0.05 H Absolute Neuts (auto) 7.5 Absolute Nucleated RBC 0.000 Nucleated RBC % (auto) 0.0 Sodium 139 Potassium 3.8 Chloride 107 Carbon Dioxide 24 Anion Gap 12 BUN 33 H Creatinine 1.07 Estim Creat Clear Calc 42.2 Estimated GFR > 60 POC Glucose 126 H 126 H Random Glucose 123 H Calcium 8.6 Magnesium 2.3 Assessment and Plan (1) Atrial tachycardia, paroxysmal: Status: Acute (2) Pericardial effusion: Status: Acute Plan Pleasant 89 year gentleman who is presenting with pneumonia after recent fall and rib fractures. He is on antibiotics and nebulizers. He has previous history of pacemaker placement. Etiology of fall is unclear whether he had a mechanical fall or not. He is clear that he did not pass out. Also no postictal state noted by the to be concerned about seizures. He has been noticed to have a small pericardial effusion. We will check echocardiogram to assess this further. Etiology of the effusion is unclear currently. He has pneumonia is also in the right side. We will get further information with echocardiography and decide about strategy for monitoring the pericardial effusion. Thank you for allowing me to participate in the care of your patient. Please feel free to contact me if you have any questions. Procedures Date of Service Date of Service: 01/03/25
[2025-01-03 16:21] LABS: Glucose, Whole Blood 150 mg/dL (60-115)
--- NOTE | 2025-01-03 18:58 | P.PNIM_ITS ---
Subjective Subjective Date of Service: 01/03/25 Interval History: Left-sided multiple ribs fractures,pneumonia Review of Systems Review of Systems: Yes all other systems are reviewed and are negative Physical Exam 2 Vital Signs: Vital Signs: Last Vital Signs Temp 98.5 F 01/03/25 15:27 Pulse 85 01/03/25 15:27 Resp 16 01/03/25 15:27 BP 128/60 01/03/25 15:27 Pulse Ox 95 01/03/25 15:27 O2 Del Method Nasal Cannula 01/03/25 15:27 O2 Flow Rate 2 01/03/25 15:27 BMI result Body Mass Index 23.8 Constitutional : Awake, interactive, not in distress Neck : Normal inspection, Supple Cardiovascular : RRR, no JVP, no lower extremity edema Respiratory : improved bilateral air entry, no crackles, wheezes or rhonchi, on O2 supplement Gastrointestinal: soft, lax, Normal bowel sounds, Non tender Skin : Warm, Dry Neurological : Alert & oriented x3, No focal deficit Objective Data Active Medications Acetaminophen (Acetaminophen 325 Mg Tablet) 650 mg PO Q6H PRN PRN Reason: Pain, Mild 1-3,fever,headache Albuterol/Ipratropium (Albuterol/Iprat 2.5/0.5mg 3 Ml Ampul.Neb) 3 ml INHALE Q4H PRN PRN Reason: Shortness of Breath/Wheezing Albuterol/Ipratropium (Albuterol/Iprat 2.5/0.5mg 3 Ml Ampul.Neb) 3 ml INHALE RQ4H WHILE AWAKE [facility] Last Admin: 01/03/25 16:58 Dose: Not Given Documented By: NATALEE Non-Admin Reason: Patient Asleep Amlodipine Besylate (Amlodipine Besylate 10 Mg Tablet) [address] [facility]; Protocol Last Admin: 01/03/25 09:54 Dose: 10 mg Documented By: CINDY Aspirin (Aspirin Enteric Coated 81 Mg Tablet.) [address] [facility] Last Admin: 01/03/25 09:54 Dose: 81 mg Documented By: CINDY Atorvastatin Calcium (Atorvastatin Calcium 40 Mg Tablet) [address] [facility] Last Admin: 01/03/25 09:54 Dose: 40 mg Documented By: CINDY Benzonatate (Benzonatate 100 Mg Capsule) 100 mg PO TID PRN PRN Reason: Cough Calcium Carbonate (Calcium Carbonate 750 Mg Tab.Chew) 750 mg PO Q4H PRN PRN Reason: Heartburn Ceftriaxone Sodium (Ceftriaxone Sodium 1 Gm Vial) [address] [facility] Last Admin: 01/02/25 20:01 Dose: 1 gm Documented By: AMY-OZIEL Dextrose (Dextrose 50 % 25 Gm/50 Ml Syringe) 25 gm IVPUSH Q15M PRN; Protocol PRN Reason: per Hypoglycemia Standing Ord. Docusate Sodium (Docusate Sodium 100 Mg Capsule) [address] [facility] Last Admin: 01/03/25 09:54 Dose: 100 mg Documented By: CINDY Doxycycline Monohydrate (Doxycycline Monohydrate 100 Mg Capsule) [address] [facility] Last Admin: 01/03/25 09:54 Dose: 100 mg Documented By: CINDY Fluoxetine HCl (Fluoxetine Hcl 20 Mg Capsule) [address] [facility] Last Admin: 01/03/25 09:54 Dose: 20 mg Documented By: CINDY Fluticasone/Umeclidinium/Vilanterol (Fluticasone/Umeclidinium/Vilanterol 200/62.5/25 Blst.W.Dev) [address] [facility] Last Admin: 01/03/25 08:06 Dose: 1 puff Documented By: NATALEE Glucose (Glucose Gel 15 Gm Gel..Gram.) 15 gm PO Q15M PRN; Protocol PRN Reason: per Hypoglycemia Standing Ord. Heparin Sodium (Porcine) (Heparin Sodium,Porcine 5,000 Unit/Ml Vial) 5,[address] [facility] Last Admin: 01/03/25 16:15 Dose: 5,000 unit Documented By: CINDY Hydromorphone HCl (Hydromorphone Hcl 0.5 Mg/0.5 Ml Syringe) 0.25 mg IVPUSH Q4H PRN; Protocol PRN Reason: Pain, Severe (Pain Scale 7-10) Insulin Human Lispro (Insulin Lispro 100 Unit/Ml 3 Ml Vial) [address] [facility]; Protocol Last Admin: 01/03/25 16:40 Dose: Not Given Documented By: CINDY Non-Admin Reason: No Insulin Coverage Latanoprost (Latanoprost 0.005 % Ophth Ciara 2.5 Ml Drops) 1 drop EYE-BOTH BEDTIME [facility] Last Admin: 01/02/25 20:02 Dose: 1 drop Documented By: ANDRZEJ Magnesium Hydroxide (Milk Of Magnesia 30 Ml Oral.Susp) 30 ml PO DAILY PRN PRN Reason: Constipation Melatonin (Melatonin 3 Mg Tablet) 6 mg PO BEDTIME PRN PRN Reason: Insomnia Sodium Chloride (0.9 % Sodium Chloride Flush 3 Ml Syringe) [address] [facility] Last Admin: 01/03/25 16:41 Dose: 3 ml Documented By: CINDY Tamsulosin HCl (Tamsulosin Hcl 0.4 Mg Capsule) 0.[address] [facility] Last Admin: 01/03/25 09:54 Dose: 0.4 mg Documented By: CINDY Labs 01/03/25 06:31 01/03/25 06:31 Labs: Laboratory Results - last 24 hr 01/02/25 01/03/25 01/03/25 20:20 06:31 07:44 MCV 86.6 MCH 29.3 MCHC 33.9 RDW 14.6 Plt Count 329 MPV 8.9 L Immature Gran % (Auto) 0.4 Neut % (Auto) 65.1 Lymph % (Auto) 21.3 Banner % (Auto) 10.5 Eos % (Auto) 2.5 Baso % (Auto) 0.2 Lymph # (Auto) 2.5 Banner # (Auto) 1.2 Eos # (Auto) 0.3 Baso # (Auto) 0.0 Abs Immat Gran (auto) 0.05 H Absolute Neuts (auto) 7.5 Absolute Nucleated RBC 0.000 Nucleated RBC % (auto) 0.0 Anion Gap 12 Estim Creat Clear Calc 42.2 Estimated GFR > 60 POC Glucose 128 H 126 H Random Glucose 123 H Calcium 8.6 Magnesium 2.3 01/03/25 01/03/25 11:44 16:12 MCV MCH MCHC RDW Plt Count MPV Immature Gran % (Auto) Neut % (Auto) Lymph % (Auto) Banner % (Auto) Eos % (Auto) Baso % (Auto) Lymph # (Auto) Banner # (Auto) Eos # (Auto) Baso # (Auto) Abs Immat Gran (auto) Absolute Neuts (auto) Absolute Nucleated RBC Nucleated RBC % (auto) Anion Gap Estim Creat Clear Calc Estimated GFR POC Glucose 126 H 150 H Random Glucose Calcium Magnesium Microbiology Microbiology Results: Microbiology 12/31/24 21:27 Blood Culture - Preliminary Blood - Venous No growth after 48 hours. 12/31/24 21:27 Blood Culture - Preliminary Blood - Venous No growth after 48 hours. Assessment and Plan (1) Ribs, multiple fractures: Status: Acute (2) Pneumonia: Status: Acute (3) Left rib fracture: Status: Acute (4) Hypoxia: Status: Acute Plan 89-year-old male with a past medical history of HTN, HLD, dm, BCC, COPD, CAD, prostate cancer, mild cognitive impairment, sick sinus syndrome status post cardiac pacemaker, chronic anemia; presented to the hospital with a chief complaint of fall. Left-sided multiple ribs fractures CT chest showed 10-12 left rib fractures with no evidence of pneumothorax or hemothorax. pain control w PO Tylenol today prn Naproxen 1 small dose given PRN IV Dilaudid incentive spirometry Pulmonology consult, switch Breo to Trelegy PT eval acute Hypoxia 2/2 Right-sided pneumonia: On O2 supplement Continue ceftriaxone/doxycycline Follow-up cultures Small pericardial effusion: pending 2D ECHO cardiology eval noted-moniter closely Urine retention, acute Start Tamsulosin Straight cath for now SubQ heparin Full code Requires ongoing hospitalization for IV antibiotics to treat right-sided pneumonia secondary fractures. Quality Stroke Does the patient have a stroke diagnosis?: No VTE Prior VTE?: No VTE Risk Level:: Medical - moderate - high VTE Device Contraindication: Treatment Not Indicated VTE Drug Contraindication: N/A - Med Ordered
[2025-01-03 20:39] LABS: Glucose, Whole Blood 146 mg/dL (60-115)
[2025-01-03] MEDS: Latanoprost 0.005 % Ophth Sol 2.5 ML DROPS 1 DROP EYE-BOTH (21:26)
[2025-01-04] VITALS (9 sets, daily range): BP systolic 136–149; BP diastolic 59–69; PULSE 61–92; RESP 17–20; TEMP 36.2–37.3; O2SAT 81–95
[2025-01-04 08:02] LABS: Glucose, Whole Blood 114 mg/dL (60-115)
[2025-01-04] MEDS: Albuterol/Iprat 2.5/0.5MG 3 ML AMPUL.NEB INHALE ×3 (08:05→19:20)
[2025-01-04] MEDS: Fluticasone/Umeclidinium/Vilanterol 200/62.5/25 BLST.W.DEV 1 PUFF INHALE (08:07)
[2025-01-04] MEDS: Aspirin Enteric Coated 81 MG TABLET.DR PO (09:39)
[2025-01-04] MEDS: 0.9 % Sodium Chloride Flush 3 ML SYRINGE IVFLUSH ×3 (09:41→22:12)
[2025-01-04 11:37] LABS: Glucose, Whole Blood 126 mg/dL (60-115)
--- NOTE | 2025-01-04 12:35 | MHC.CM.PN ---
EMR REVIEWED, PT W/PNA AND SMALL PLEURAL EFFUSION, PER HOSPITALIST PT W/MINIMAL IMPROVEMENT AND NEED FOR IV ABX AT LEAST 3 DAYS, CHARLA RODNEY FOLLOWING FOR STR, CM WILL CONT TO FOLLOW DC NEEDS.
[2025-01-04 16:05] LABS: Glucose, Whole Blood 114 mg/dL (60-115)
--- NOTE | 2025-01-04 16:06 | HO.PM.IMPN ---
Subjective Subjective Date of Service: 01/04/25 Interval History: Left-sided multiple ribs fractures,pneumonia Review of Systems sob improving Physical Exam Vital Signs: Vital Signs: Last Vital Signs Temp 97.6 F 01/04/25 15:46 Pulse 61 01/04/25 15:46 Resp 17 01/04/25 15:46 BP 137/63 01/04/25 15:46 Pulse Ox 95 01/04/25 15:46 O2 Del Method Nasal Cannula 01/04/25 15:46 O2 Flow Rate 2 01/04/25 15:46 BMI result Body Mass Index 23.8 Constitutional : Awake, interactive, not in distress Neck : Normal inspection, Supple Cardiovascular : RRR, no JVP, no lower extremity edema Respiratory : improved bilateral air entry, no crackles, wheezes or rhonchi, on O2 supplement Gastrointestinal: soft, lax, Normal bowel sounds, Non tender Skin : Warm, Dry Neurological : Alert & oriented x3, No focal deficit Objective Data Active Medications Acetaminophen (Acetaminophen 325 Mg Tablet) 650 mg PO Q6H PRN PRN Reason: Pain, Mild 1-3,fever,headache Albuterol/Ipratropium (Albuterol/Iprat 2.5/0.5mg 3 Ml Ampul.Neb) 3 ml INHALE Q4H PRN PRN Reason: Shortness of Breath/Wheezing Albuterol/Ipratropium (Albuterol/Iprat 2.5/0.5mg 3 Ml Ampul.Neb) 3 ml INHALE RQ4H WHILE AWAKE [facility] Last Admin: 01/04/25 15:30 Dose: Not Given Documented By: ANYA Non-Admin Reason: Patient Asleep Amlodipine Besylate (Amlodipine Besylate 10 Mg Tablet) 10 mg PO DAILY [facility]; Protocol Last Admin: 01/04/25 09:39 Dose: 10 mg Documented By: CINDY Aspirin (Aspirin Enteric Coated 81 Mg Tablet.) 81 mg PO DAILY [facility] Last Admin: 01/04/25 09:39 Dose: 81 mg Documented By: CINDY Atorvastatin Calcium (Atorvastatin Calcium 40 Mg Tablet) 40 mg PO DAILY [facility] Last Admin: 01/04/25 09:39 Dose: 40 mg Documented By: CINDY Benzonatate (Benzonatate 100 Mg Capsule) 100 mg PO TID PRN PRN Reason: Cough Calcium Carbonate (Calcium Carbonate 750 Mg Tab.Chew) 750 mg PO Q4H PRN PRN Reason: Heartburn Ceftriaxone Sodium (Ceftriaxone Sodium 1 Gm Vial) 1 gm IVPUSH Q24H [facility] Last Admin: 01/03/25 21:23 Dose: 1 gm Documented By: ANDRZEJ Dextrose (Dextrose 50 % 25 Gm/50 Ml Syringe) 25 gm IVPUSH Q15M PRN; Protocol PRN Reason: per Hypoglycemia Standing Ord. Docusate Sodium (Docusate Sodium 100 Mg Capsule) 100 mg PO BID [facility] Last Admin: 01/04/25 09:39 Dose: 100 mg Documented By: CINDY Doxycycline Monohydrate (Doxycycline Monohydrate 100 Mg Capsule) 100 mg PO Q12H [facility] Last Admin: 01/04/25 09:39 Dose: 100 mg Documented By: CINDY Fluoxetine HCl (Fluoxetine Hcl 20 Mg Capsule) 20 mg PO DAILY [facility] Last Admin: 01/04/25 09:38 Dose: 20 mg Documented By: CINDY Fluticasone/Umeclidinium/Vilanterol (Fluticasone/Umeclidinium/Vilanterol 200/62.5/25 Blst.W.Dev) 1 puff INHALE RDAILY [facility] Last Admin: 01/04/25 08:07 Dose: 1 puff Documented By: ROJELIO Glucose (Glucose Gel 15 Gm Gel..Gram.) 15 gm PO Q15M PRN; Protocol PRN Reason: per Hypoglycemia Standing Ord. Heparin Sodium (Porcine) (Heparin Sodium,Porcine 5,000 Unit/Ml Vial) 5,000 unit SUBCUT Q8H [facility] Last Admin: 01/04/25 15:11 Dose: 5,000 unit Documented By: CINDY Hydromorphone HCl (Hydromorphone Hcl 0.5 Mg/0.5 Ml Syringe) 0.25 mg IVPUSH Q4H PRN; Protocol PRN Reason: Pain, Severe (Pain Scale 7-10) Last Admin: 01/04/25 05:10 Dose: 0.25 mg Documented By: ANDRZEJ Insulin Human Lispro (Insulin Lispro 100 Unit/Ml 3 Ml Vial) 0 unit SUBCUT QIDACHS [facility]; Protocol Last Admin: 01/04/25 11:48 Dose: Not Given Documented By: CINDY Non-Admin Reason: No Insulin Coverage Latanoprost (Latanoprost 0.005 % Ophth Ciara 2.5 Ml Drops) 1 drop EYE-BOTH BEDTIME [facility] Last Admin: 01/03/25 21:26 Dose: 1 drop Documented By: BRYANTZEShante Magnesium Hydroxide (Milk Of Magnesia 30 Ml Oral.Susp) 30 ml PO DAILY PRN PRN Reason: Constipation Melatonin (Melatonin 3 Mg Tablet) 6 mg PO BEDTIME PRN PRN Reason: Insomnia Sodium Chloride (0.9 % Sodium Chloride Flush 3 Ml Syringe) 3 ml IVFLUSH QSHIFT [facility] Last Admin: 01/04/25 15:12 Dose: 3 ml Documented By: CINDY Tamsulosin HCl (Tamsulosin Hcl 0.4 Mg Capsule) 0.4 mg PO DAILY [facility] Last Admin: 01/04/25 09:39 Dose: 0.4 mg Documented By: CINDY Labs 01/03/25 06:31 01/03/25 06:31 Labs: Laboratory Results - last 24 hr 01/03/25 01/03/25 01/04/25 16:12 20:23 07:46 POC Glucose 150 H 146 H 114 01/04/25 01/04/25 11:34 15:58 POC Glucose 126 H 114 Assessment and Plan (1) Pneumonia: Status: Acute Assessment and Plan: 89-year-old male with a past medical history of HTN, HLD, dm, BCC, COPD, CAD, prostate cancer, mild cognitive impairment, sick sinus syndrome status post cardiac pacemaker, chronic anemia; presented to the hospital with a chief complaint of fall. Left-sided multiple ribs fractures CT chest showed 10-12 left rib fractures with no evidence of pneumothorax or hemothorax. pain control w PO Tylenol today prn,PRN IV Dilaudid incentive spirometry Pulmonology consult, switch Breo to Trelegy,continue antibiotics PT eval acute Hypoxia 2/2 Right-sided pneumonia: On O2 supplement Continue ceftriaxone/doxycycline Follow-up cultures Small pericardial effusion:? unclear etiology 2D ECHO:Normal left ventricular size and systolic function. There is mildly increased left ventricular wall thickness. The visually estimated ejection fraction is between 55-60%. Normal right ventricular cavity size and systolic function.There is a pacemaker wire seen in the right ventricle. There is a small pericardial effusion. There are no definitiveechocardiographic findings of tamponade physiology. cardiology eval noted-moniter closely, no new intervention Urine retention, acute Start Tamsulosin Straight cath for now SubQ heparin Full code Requires ongoing hospitalization for IV antibiotics to treat right-sided pneumonia secondary fractures-taper oxygen,iv antiobiotics Quality Stroke Does the patient have a stroke diagnosis?: No VTE Prior VTE?: No VTE Risk Level:: Medical - moderate - high VTE Device Contraindication: Treatment Not Indicated VTE Drug Contraindication: N/A - Med Ordered
--- NOTE | 2025-01-04 16:13 | P.CDIM_ITS ---
PROVIDER RESPONSE TEXT: To clarify, the appropriate diagnosis supported by the clinical indicators: Other (explain): unclear QUERY TEXT: PHYSICIAN'S DOCUMENTATION REQUEST Date of Query: 01/04/2025 12:31 PM EDT Patient Name: Mike Kemp Admit Date: 01/01/2025 Dear Kyle Machuca MD, A review of the medical record indicates additional documentation may be needed. Please review below and update the documentation accordingly. Clinical Indicators: Small pericardial effusion ECHO pending Cardiology consulted Clarify which of the following accurately represents the acuity of the Pericardial effusion. Possible options might include: Acute Acute on chronic Compensated Chronic stable condition Remission Other (explain) Clinically unable to determine (explain) Thank you, Gissell Gray RN Use of terms such as suspected, likely, concern for, or probable (associated with a specific diagnosis that is being evaluated, monitored, or treated as if it exists) are acceptable and can be coded in the inpatient setting, when documented at the time of discharge. Please use your independent medical judgment in providing your response. THIS QUERY IS PART OF THE PERMANENT MEDICAL RECORD
[2025-01-04 21:31] LABS: Glucose, Whole Blood 120 mg/dL (60-115)
[2025-01-04] MEDS: Latanoprost 0.005 % Ophth Sol 2.5 ML DROPS 1 DROP EYE-BOTH (22:09)
[2025-01-05] VITALS (9 sets, daily range): BP systolic 142–160; BP diastolic 66–79; PULSE 74–84; RESP 16–18; TEMP 36.3–37.6; O2SAT 92–95
[2025-01-05 07:22] LABS: Glucose, Whole Blood 123 mg/dL (60-115)
[2025-01-05] MEDS: Albuterol/Iprat 2.5/0.5MG 3 ML AMPUL.NEB INHALE ×3 (07:42→15:37)
[2025-01-05] MEDS: Fluticasone/Umeclidinium/Vilanterol 200/62.5/25 BLST.W.DEV 1 PUFF INHALE (07:42)
[2025-01-05] MEDS: Aspirin Enteric Coated 81 MG TABLET.DR PO (08:40)
[2025-01-05] MEDS: 0.9 % Sodium Chloride Flush 3 ML SYRINGE IVFLUSH (08:42)
--- NOTE | 2025-01-05 10:52 | MHC.CM.PN ---
Second IMM 01/05/25, Pt has been medically cleared to DC, [facility].
[2025-01-05 11:11] LABS: Glucose, Whole Blood 119 mg/dL (60-115)
--- NOTE | 2025-01-05 12:50 | PM.DS ---
DS: Providers Provider Date of Service: 01/05/25 Date of admission: 12/31/24 21:18 Date of discharge: 01/05/25 Primary care physician: Unknown Physician Consults: 12/31/24 21:18 Consult to Pulmonology Routine Consulting Provider: [facility] Reason for consultation: PNA; rib fx 01/03/25 09:24 Consult to Cardiology Routine Consulting Provider: [facility] Reason for consultation: narrow complex tachycardia/pericadial effusion,s/p fall multiple rib frctur Has provider been notified: No Attending physician on discharge: Kyle Machuca Discharging clinician: Kyle Machuca DS: Diagnosis Discharge Diagnosis (1) Pneumonia: Status: Acute DS: Summary Hospital Course Hospital Course: hpi:89-year-old male with a past medical history of HTN, HLD, dm, BCC, COPD, CAD, prostate cancer, mild cognitive impairment, sick sinus syndrome status post cardiac pacemaker, chronic anemia; presented to the hospital with a chief complaint of fall. Patient reports that he was moving the trash and he suddenly tripped and fell over and hit on his right side. Patient reports having chest pain since the fall. Also mentions he has been having cough for the past few days. Mentioned mild shortness of breath. Denies any nausea or vomiting. Denies any urinary symptoms. Review of all other systems is negative except mentioned above ER course: Per ER team, patient on presentation reported chest pain; reproducible; CT chest showed 10-12 rib fractures. No pneumothorax. CT chest also showed pneumonia. Patient was hypoxic to 88%. Slightly diminished breath sounds likely poor respiratory effort. Placed on supplemental oxygen. Given nebulizers. Patient also received IV antibiotics. CT head and CT C-spine showed no acute findings. hospital course: 89-year-old male with a past medical history of HTN, HLD, dm, BCC, COPD, CAD, prostate cancer, mild cognitive impairment, sick sinus syndrome status post cardiac pacemaker, chronic anemia; presented to the hospital with a chief complaint of fall. Patient was admitted with left-sided multiple rib fractures:CT chest showed 10-12 left rib fractures with no evidence of pneumothorax or hemothorax: Patient was started on pain control with p.o. Tylenol, IV Dilaudid in addition incentive spirometry and also seen by Pulmonary: With the above supportive care patient pain seems to be better control, in addition patient was also found to have acute hypoxemic respiratory failure with pneumonia/also in the setting of multiple rib fractures: Patient with the above pain management and IV antibiotics seems to be improved significantly, blood culture negative, patient is still require oxygen but not having shortness of breath even with ambulating seems improving significantly. His antibiotics switched to p.o.. In addition patient 2D echo was done:2D ECHO:Normal left ventricular size and systolic function. There is mildly increased left ventricular wall thickness. The visually estimated ejection fraction is between 55-60%. Normal right ventricular cavity size and systolic function.There is a pacemaker wire seen in the right ventricle.there is a small pericardial effusion. There are no definitiveechocardiographic findings of tamponade physiology. Cardiology reviewed the echo as well as seen the patient no acute intervention for above. Mild normocytic anemia: Patient denies any marielos bleeding or melena Monitor CBC outpatient in 1 week. urinary retention: Started on Flomax, monitor PVRs out patiently if needed consider outpatient urology evaluation. Complete course of antibiotics-Ceftin 500 mg p.o. b.i.d. for 6 days as well as doxycyclin 100 mg p.o. b.i.d. for 6 days. Please repeat chest imaging in 3-4 weeks to see resolution pneumonia. Taper oxygen . May benefit from home oxygen evaluation in rehab if needed. Pain control with the Tylenol and Dilaudid as above. Hold for sedation. Bowel regimen also added. Continue Flomax 0.4 mg daily Monitor CBC and BMP outpatient in 1 week. Above management discussed with the patient detail length he understand and in agreement with the above plan, time spent 40 minute. All questions answered, staff was present during conversation. Time Attestation Total time managing care of this patient today: 40 mintues. Discharge Coordination Time (in mins): 40 min Quality: Safe Use of Opioids Does Pt have an Active Cancer Diagnosis on the Problem List?: No Quality: Stroke Does the patient have a stroke diagnosis?: No Physical Exam Vital Signs: Vital Signs: Last Vital Signs Temp 97.6 F 01/05/25 11:09 Pulse 80 01/05/25 11:41 Resp 17 01/05/25 11:41 BP 159/72 H 01/05/25 11:25 Pulse Ox 94 01/05/25 11:09 O2 Del Method Nasal Cannula 01/05/25 11:09 O2 Flow Rate 2 01/05/25 11:09 BMI result Body Mass Index 23.8 Constitutional : Awake, interactive, not in distress Neck : Normal inspection, Supple Cardiovascular : RRR, no JVP, no lower extremity edema Respiratory : improved bilateral air entry, no crackles, wheezes . Gastrointestinal: soft, lax, Normal bowel sounds, Non tender Skin : Warm, Dry Neurological : Alert & oriented x3, No focal deficit DS: Data Data Completed and Pending Labs on day of discharge: Laboratory Results - last 24 hr 01/04/25 01/04/25 01/05/25 15:58 21:22 07:14 POC Glucose 114 120 H 123 H 01/05/25 11:08 POC Glucose 119 H Preliminary micro results at discharge 12/31/24 21:27 Blood Culture - Preliminary Blood - Venous No growth after 48 hours. 12/31/24 21:27 Blood Culture - Preliminary Blood - Venous No growth after 48 hours. Imaging Chest x-ray: My impression: head ct/neck:No acute intracranial hemorrhage. No acute fracture in the cervical spine. hip xray b/l: IMPRESSION: No radiographic evidence of pelvic or hip injury. chest ct: IMPRESSION: 1. Acute nondisplaced fractures in the 10th-12th left ribs with no evidence for pneumothorax or hemothorax. 2. Bronchial wall thickening, which can be seen with asthma, reactive airways process or viral illness. 3. Superimposed infiltrates in the right middle lobe, lingula and right lower lobe. 4. Small pericardial effusion. 5. Mediastinal and right hilar adenopathy. 6. Nonspecific small nodules in the left thyroid lobe. 7. Additional findings as above. Discharge Plan Discharge Anticipated Discharge Date/Time: 01/05/25 12:24 Patient Disposition: er SNF Discharge Diagnosis: pneumonia ,rib fractures ,hypoxia,copd Referrals: [facility] [Outside] - 1 Week Physician,Unknown J [Primary Care Provider, Medical] - 1 Week Discharge Medications: New tamsulosin 0.4 mg Capsule 0.4 mg PO DAILY Qty: 1 0RF doxycycline monohydrate 100 mg Capsule 100 mg PO Q12H Qty: 12 0RF cefuroxime axetil 500 mg Tablet 500 mg PO Q12H Qty: 12 0RF Trelegy Ellipta 200-62.5-25 mcg Blister With Device 1 inh inhalation RDAILY Qty: 1 0RF acetaminophen [Tylenol] 325 mg tablet 975 mg PO QID PRN (Reason: pain) Qty: 1 0RF hydromorphone [Dilaudid] 1 mg/mL liquid 0.5 mg PO Q6H PRN (Reason: pain) Qty: 10 0RF Rx Instructions: Partial Fill upon patient request. docusate sodium [Colace] 100 mg capsule 100 mg PO DAILY PRN (Reason: constipation) Qty: 1 0RF polyethylene glycol 3350 [Miralax] 17 gram/dose powder 17 g PO DAILY Qty: 1 0RF omeprazole 20 mg capsule,delayed release(DR/EC) 20 mg PO DAILY Qty: 1 0RF Continued fluoxetine 20 mg capsule 20 mg PO DAILY Qty: 90 1RF atorvastatin 40 mg tablet 40 mg PO DAILY Qty: 90 1RF amlodipine 10 mg tablet 10 mg PO DAILY Qty: 90 1RF albuterol sulfate 90 mcg/actuation HFA aerosol inhaler 2 puff inhalation Q4H PRN (Reason: shortness of breath or wheezing) latanoprost 0.005 % drops 1 drp ophthalmic (eye) BEDTIME aspirin 81 mg tablet,delayed release (DR/EC) 81 mg PO DAILY Tylenol Extra Strength 500 mg powder in packet 500 mg PO Q6H PRN (Reason: Pain) Discontinued ibuprofen 200 mg Tablet 400 mg PO Q6H PRN (Reason: Pain) Breo Ellipta 200-25 mcg/dose blister with device 1 ea inhalation DAILY 90 Days Qty: 3 3RF Discharge Orders: Discharge Order (Routine); Ordered 01/05/25 Ordered By: Kyle Machuca Diet: Advance to usual diet Activity on Discharge: As tolerated Stand Alone Forms: Patient Portal Discharge page Print Language: [place]ar[place] Care Plan Goals: as below. Health Concerns: As above. Plan of Treatment: Complete course of antibiotics-Ceftin 500 mg p.o. b.i.d. for 6 days as well as doxycyclin 100 mg p.o. b.i.d. for 6 days. Please repeat chest imaging in 3-4 weeks to see resolution pneumonia. Taper oxygen . May benefit from home oxygen evaluation in rehab if needed. Pain control with the Tylenol and Dilaudid as above. Hold for sedation. Bowel regimen also added. Continue Flomax 0.4 mg daily Monitor CBC and BMP outpatient in 1 week. Assessment: as above. Discharge Date/Time: 01/05/25 16:17
--- NOTE | 2025-01-05 15:45 | PM.PNCARD ---
Subjective Subjective Date of Service: 01/05/25 Interval history: Seen examined at bedside. Feeling better and will be going home today. ECHO has shown small pericardial effusion. Physical Exam Vital Signs: Last Vital Signs Temp 97.8 F 01/05/25 15:19 Pulse 83 01/05/25 15:19 Resp 18 01/05/25 15:19 BP 149/70 H 01/05/25 15:19 Pulse Ox 95 01/05/25 15:19 O2 Del Method Room Air 01/05/25 15:19 O2 Flow Rate 2 01/05/25 11:09 BMI result Body Mass Index 23.8 GENERAL APPEARANCE: Elderly gentleman. He is in no acute distress. NECK: no carotid bruit, no jugular venous distention. SKIN: no suspicious lesions, warm and dry. HEART: no murmurs, regular rate and rhythm. LUNGS: clear to auscultation bilaterally. Left-sided rib tenderness. ABDOMEN: soft, nontender. EXTREMITIES: no edema. PERIPHERAL PULSES: equal. NEUROLOGIC: No gross deficits, AAO X 3 Objective Labs and Meds 01/03/25 06:31 01/03/25 06:31 Lab results: Laboratory Results - last 24 hr 01/04/25 01/04/25 01/05/25 15:58 21:22 07:14 POC Glucose 114 120 H 123 H 01/05/25 11:08 POC Glucose 119 H Progress Note: A&P Assessment and plan (1) Pericardial effusion: Status: Acute Plan [age] year gentleman with fall and left-sided rib fractures. Subsequently presented hypoxia and pneumonia. Imaging showed small pericardial effusion. Echocardiography has confirmed small pericardial effusion. No tamponade physiology. He will need repeat echocardiography in 4-6 weeks to reassess the effusion. He will follow up with Dr. Ross in February as per the . Thank you for allowing me to participate in the care of your patient. Please feel free to contact me if you have any questions. Time Spent With Patient Time: Total time managing care of this patient today ____ minutes. Progress Note: Quality Stroke Does the patient have a stroke diagnosis?: No Procedures Date of Service Date of Service: 01/05/25
--- NOTE | 2025-01-21 16:23 | P.CDIM_ITS ---
PROVIDER RESPONSE TEXT: To clarify, the appropriate diagnosis supported by the clinical indicators: Acute hypoxic Respiratory failure is/was present and is a clinical diagnosis QUERY TEXT: PHYSICIAN'S DOCUMENTATION REQUEST Date of Query: 01/20/2025 12:32 PM EDT Patient Name: Mike Kemp Admit Date: 01/01/2025 Dear Kyle Machuca MD, A review of the medical record indicates additional documentation may be needed. Please review below and update the documentation accordingly. Documentation on the Pulmonary Consultation 01/01/25 included the diagnosis of Acute hypoxic respiratory failure. Documentation in hospitalist progress notes stated hypoxia The patient's respiratory clinical indicators were the following: respiratory rate 12-21 SAT 85-96% oxygen administration protocol as per orders Based on the above information and the recognized standard for respiratory failure could you please verify this diagnoses is still accurate and reflective of the patient's condition to ensure quality of the medical record. Acute hypoxic Respiratory failure is/was present and is a clinical diagnosis After study Acute hypoxic respiratory failure has been ruled out Hypoxia Other (explain) Clinically unable to determine (explain) Thank you, Gissell Gray RN Use of terms such as suspected, likely, concern for, or probable (associated with a specific diagnosis that is being evaluated, monitored, or treated as if it exists) are acceptable and can be coded in the inpatient setting, when documented at the time of discharge. Please use your independent medical judgment in providing your response. THIS QUERY IS PART OF THE PERMANENT MEDICAL RECORD
== END 2025-01-05 16:17 | disposition skilled nursing facility (03) | DRG 193 ==
LOC: HO.ED 16:14 → HO.EDOVER 22:27 → HO.IMC 01-01 00:10
PROVIDERS: Hospitalist; Student in an Organized Health Care Education/Training Program; Admitting Provider Hospitalist; Emergency Provider Internal Medicine; Visit Provider Internal Medicine
DX: J18.9 Pneumonia, unspecified organism (principal); J96.01 Acute respiratory failure with hypoxia; J44.0 Chronic obstructive pulmonary disease with (acute) lower respiratory infection; S22.42XA Multiple fractures of ribs, left side, initial encounter for closed fracture; I49.5 Sick sinus syndrome; I25.10 Atherosclerotic heart disease of native coronary artery without angina pectoris; G31.84 Mild cognitive impairment of uncertain or unknown etiology; R33.9 Retention of urine, unspecified; H40.9 Unspecified glaucoma; W19.XXXA Unspecified fall, initial encounter; Z95.0 Presence of cardiac pacemaker; Z87.891 Personal history of nicotine dependence; Z79.82 Long term (current) use of aspirin; Z79.899 Other long term (current) drug therapy
CPT/HCPCS: 36415; 70450; 71260; 72125; 73521; 80048; 80053; 82803; 82947; 83605; 83735; 85025; 87040; 93005; 93306; 94640; 97116; 97162; 97530; 99285; J0131; J0696; J1171; J1271; J1644; J3475; Q9957; Q9967

== ENCOUNTER → 2024-12-31 15:51 | Outpatient (BNV) | payer MEDICARE, SELFPAY | PROVIDERS: Admitting Provider Hospitalist; Emergency Provider Internal Medicine; Visit Provider Internal Medicine Cardiovascular Disease | DX: R94.31 Abnormal electrocardiogram [ECG] [EKG] (principal); Z95.0 Presence of cardiac pacemaker | CPT/HCPCS: 93010 ==

== ENCOUNTER → 2024-12-31 16:25 | Outpatient (BNV) | payer MEDICARE, SELFPAY | PROVIDERS: Emergency Provider Internal Medicine; Visit Provider Radiology Diagnostic Radiology | DX: R07.81 Pleurodynia (principal); J90 Pleural effusion, not elsewhere classified; E04.1 Nontoxic single thyroid nodule; S22.42XA Multiple fractures of ribs, left side, initial encounter for closed fracture; S09.90XA Unspecified injury of head, initial encounter; W19.XXXA Unspecified fall, initial encounter; Z03.89 Encounter for observation for other suspected diseases and conditions ruled out | CPT/HCPCS: 70450; 71260; 72125; 73521 ==

== ENCOUNTER 2024-12-31 21:18 | Outpatient (BNV) | payer MEDICARE, SELFPAY | END 2025-01-02 07:00 | PROVIDERS: Admitting Provider Hospitalist; Emergency Provider Internal Medicine; Visit Provider Internal Medicine Cardiovascular Disease | DX: I31.39 Other pericardial effusion (noninflammatory) (principal) | CPT/HCPCS: 93306 ==

== ENCOUNTER → 2024-12-31 21:18 | Outpatient (BNV) | payer MEDICARE, SELFPAY | PROVIDERS: Admitting Provider Hospitalist; Emergency Provider Internal Medicine; Visit Provider Internal Medicine Pulmonary Disease | DX: J44.9 Chronic obstructive pulmonary disease, unspecified (principal); J96.01 Acute respiratory failure with hypoxia; S22.49XA Multiple fractures of ribs, unspecified side, initial encounter for closed fracture | CPT/HCPCS: 99222 ==

== ENCOUNTER → 2024-12-31 21:18 | Outpatient (BNV) | payer MEDICARE, SELFPAY | PROVIDERS: Admitting Provider Hospitalist; Emergency Provider Internal Medicine; Visit Provider Internal Medicine Cardiovascular Disease | DX: I31.39 Other pericardial effusion (noninflammatory) (principal) | CPT/HCPCS: 99232 ==

== ENCOUNTER → 2024-12-31 21:18 | Outpatient (BNV) | payer MEDICARE, SELFPAY | PROVIDERS: Admitting Provider Hospitalist; Emergency Provider Internal Medicine; Visit Provider Hospitalist | DX: R09.02 Hypoxemia (principal); W19.XXXA Unspecified fall, initial encounter; S22.42XA Multiple fractures of ribs, left side, initial encounter for closed fracture; J18.9 Pneumonia, unspecified organism | CPT/HCPCS: 99222; 99231; 99232; 99233; 99239 ==

== ENCOUNTER 2025-02-13 13:18 | Outpatient (AMB) | payer MEDICARE, SELFPAY ==
--- NOTE | 2025-02-13 13:15 | MHC.PC.OV ---
Vital Signs 02/13/25 13:22 Height 5 ft 5.75 in Weight 146 lb 4 oz BMI 23.8 BP 114/56 L Blood Pressure Location Rt brachial Position Sitting Respiration 20 Pulse 69 Pulse Source Pulse Oximeter Temp 97.7 F Temp Source Temporal Artery Scan Pulse Oximetry (%) 92 Oxygen Delivery Method Room Air Intake Visit Reasons: TCM Discharged from rehab Intake Note: Visit Reason: TCM Intake Note: Patient is here for hospital discharge follow up. Patient was discharged from [facility] Service Associate Required: No Resource Technician: Not Required per policy Accompanied by: Self / Same As Patient Allergies No Known Drug Allergies (NO KNOWN DRUG ALLERGIES) Allergy (Unknown, Verified 02/13/25 14:24) NONE latex Allergy (Uncoded 02/13/25 14:24) Rash Medication List - Last Reconciled 02/13/25 by Tita Colorado PA-C acetaminophen (Tylenol) 975 mg (3 x 325 mg) PO QID PRN acetaminophen (Tylenol Extra Strength) 500 mg PO Q6H PRN albuterol sulfate 90 mcg/actuation 2 puffs inhalation Q4H PRN amlodipine 10 mg PO DAILY aspirin 81 mg PO DAILY atorvastatin 40 mg PO DAILY fluoxetine 20 mg PO DAILY ruocyyufjek-uojeakbkr-hywdoffv 200-62.5-25 mcg (Trelegy Ellipta) 1 inh inhalation RDAILY latanoprost 0.005% 1 drp ophthalmic (eye) BEDTIME Tobacco use date assessed: 11/23/24 Fall risk assessment: 1 Fall in past year Last assessed Fall Risk: 11/23/24 Dental Screening Dental Screen Date: 11/23/24 Did you have a dental visit in the last 12 months?: Yes Did you have a dental problem in the last 6 months where you did not have access to dental care?: No Was dental information given to patient?: Patient has dentist HPI HPI Comments History of Present Illness Details Patient presents to the office for a TCM visit. Date of admission: 01/05/25 Date of discharge: 01/24/25 This is a Follow-up from admission at [facility] HPI/Hospital Course/Discharge Summary: The patient is an 89-year-old male presenting with a transition care management visit following discharge from a rehabilitation facility. The patient was admitted to the hospital after a fall in the garage, which resulted in two rib fractures. The fall was suspected to be due to pneumonia, which was diagnosed during the hospital stay. The patient was hypoxic with an oxygen saturation of 88% and was treated with antibiotics including doxycycline and cefroxamine. The patient has a history of multiple chronic conditions including hypertension, hyperlipidemia, diabetes, basal cell carcinoma, COPD, coronary artery disease, prostate cancer, mild cognitive impairment, sick sinus syndrome status post cardiac pacemaker, and chronic anemia. He was previously on a higher dose of amlodipine, which caused peripheral edema, and has since been reduced to 5 mg to manage the swelling. The patient is currently using Trelegy for COPD management, which has been more effective than Breo. He also uses an albuterol inhaler as a rescue medication. The patient lives with his and has support from his son and daughter. He receives weekly visits from a visiting nurse and physical therapy twice a week. Discharged to/Current Location: Home Lives with: and Dog Diagnosis: Fall with pneumonia and 3 right Sided rib fractures Procedures performed: Patient had a CT scan of head, cervical spine, chest and x-ray of hip and pelvis New medications: Patient was started on Ceftin and doxycycline which he already completed, patient was started on Trelegy Discontinued medications: No medications were discontinued Change medications/dosing: No changes in medications or dosing Pending labs: No pending labs Pending diagnostic test: No pending diagnostic test Any Follow-up Labs required? CBC, CMP Any Follow-up Diagnostic test required? CT chest with IV contrast to ensure pneumonia has resolved per hospitalist note How are you feeling? Better not in pain, breathing back to base line due to chronic COPD no oxygen required, no weakness Are you in any pain or discomfort? 1 OUT OF 10 TO RIGHT RIB IMPROVING usually in AM when he wakes up Do you have any questions about your condition or discharge instructions? Not at this time Were you able to get your medications filled? yes Do you have any questions about your medications? not at this time Any referrals required? Patient requesting home health aide referral Were you able to schedule your follow-up appointment? Patient has follow-up appointment with auto electrical technician on 02/19/2025 and follow-up with switchgear repairer on 03/23/2025 If home health was ordered, have they contact you? Not ordered Any outpatient services, if so, are you scheduled? yes Are there any additional resources like transportation you might need during her recovery? Not at this time Drives - [facility]? in place RN weekly and PT biweekly - [facility]? Not at this time pt interested - Meals on wheels? Not at this time and not interested Educational need/resources: What support system do you have? , Son, Daughter [facility] Medical History Atrial tachycardia, paroxysmal Peripheral edema Chronic anemia New onset type 2 diabetes mellitus Overweight with body mass index (BMI) of 25 to 25.9 in adult Basal cell carcinoma of ear Glucose intolerance Sciatica Lumbar herniated disc Osteoarthritis History of basal cell carcinoma Mucopurulent chronic bronchitis Obstructive airway disease Mild cognitive impairment Mild hypercholesterolemia Coronary artery disease SSS (sick sinus syndrome) Cough COPD (chronic obstructive pulmonary disease) Prostate cancer Eczema Gallstones Nocturia Kidney cysts Kidney stones Hyperlipidemia HTN (hypertension) Prostate cancer Surgical History History of colonoscopy History of cholecystectomy History of herniorrhaphy History of right hip replacement History of prostatectomy Family History Father No problems noted. Mother No problems noted. Social History Household Members: Spouse Housing: House Do you presently have visiting nurse or other home services: No Alcohol intake: current Alcohol intake frequency: holidays/special occasions only Patient Tobacco Use Status: Former Tobacco user Years Smoked: 30 years service: No Current occupational status: retired Cognitive needs: Yes (cane) Hearing needs: No Vision needs: Yes (rx glasses) Questionnaire PHQ-9 Over the last 2 weeks, how often have you been bothered by any of the following problems? 1. Little interest or pleasure in doing things: not at all 2. Feeling down, depressed, or hopeless: not at all 3. Trouble falling or staying asleep, or sleeping too much: not at all 4. Feeling tired or having little energy: not at all 5. Poor appetite or overeating: not at all 6. Feeling bad about yourself - or that you are a failure or have let yourself or your family down: not at all 7. Trouble concentrating on things, such as reading the newspaper or watching television: not at all 8. Moving or speaking so slowly that other people could have noticed. Or the opposite - being so fidgety or restless that you have been moving around a lot more than usual: not at all 9. Thoughts that you would be better off or of hurting yourself in some way: not at all Total score: 0 Depression Screening Interpretation: Negative Depression Screening Done: Yes 16133 - PHQ-9 Billing: Yes Source: Developed by Drs. Jose Mederos, Erica Bailey, Mika Kern and colleagues, with an educational krista from [employer]. Thrive Questionnaire Date Thrive assessed: 01/02/25 I am a: Patient What is your living situation today?: I have a steady place to live Within the past 12 months, did the food you bought not last and you didn't have the money to get more?: Never true Within the past 12 months, did you worry whether your food would run out before you got money to buy more?: Never true Do you have trouble paying for medicines?: No Do you have trouble getting transportation to medical appointments?: No Do you have trouble paying your heating and electricity bill?: No Do you have trouble taking care of your child, family member or friend?: No Do you have trouble with day-to-day activities such as bathing, preparing meals, shopping, managing finances, etc.?: No Are you currently unemployed and looking for a job?: No Are you interested in more education?: No Please select the resources that you would like help with: None THRIVE Score: 0 AUDIT C Alcohol Use Questionnaire (AUDIT-C) 1. How often do you have a drink containing alcohol?: Monthly or less 2. How many drinks containing alcohol do you have on a typical day when you are drinking?: 1 or 2 3. How often do you have six or more drinks on one occasion?: Never Total Score: 1 Score Reviewed/Action Taken: No NEVAEH-7 AMB Questionnaire NEVAEH-7 Date NVEAEH - 7 assessed: 11/23/24 Feeling nervous, anxious, or on edge: 0 = Not at all Not being able to stop or control worryin = Not at all Worrying too much about different things: 0 = Not at all Trouble relaxin = Not at all Being so restless that it is hard to sit still: 0 = Not at all Becoming easily annoyed or irritable: 0 = Not at all Feeling afraid as if something awful might happen: 0 = Not at all Total NEVAEH-7 score (0-4 normal; 5-9 mild; 10-14 moderate; 15-21 severe): 0 Source: Developed by Drs. Jose Mederos, Erica Bailey, Mika Kern and colleagues, with an educational krista from [employer]. NEVAEH-7 Assessment Billing NEVAEH-7 Assessment Tool: NEVAEH-7 Assessment 79347 Review of Systems Const Details: - Respiratory: Reports cough and mild dyspnea; denies wheezing - Musculoskeletal: Reports improved rib cage/chest wall pain since the fall; denies other musculoskeletal pain - General: Denies recent travel All systems reviewed & are unremarkable except as noted in HPI and below Physical exam (Primary Care) Vital Signs: Last Vital Signs Temp 97.7 F 02/13/25 13:22 Pulse 69 02/13/25 13:22 Resp 20 02/13/25 13:22 BP 114/56 L 02/13/25 13:22 Pulse Ox 92 02/13/25 13:22 Oxygen Delivery Method Room Air 02/13/25 13:22 Vitals signs have been reviewed. Care Plan Goal for BP management: <140/90 at Goal BMI result Body Mass Index 23.8 normal bmi Tobacco/Smoking Status: Tobacco use Status Tobacco use date assessed 11/23/24 02/13/25 13:16 Patient Tobacco Use Status Former Tobacco user 02/13/25 13:16 PHQ-9: PHQ-9 Score PHQ-9: Total score 0 02/13/25 13:20 Depression Screening Interpretation: Negative Thrive Assessment: Date of Thrive Assessment Date Thrive assessed 01/02/25 02/13/25 13:16 Const Other: Appearance: Alert. Oriented. No acute distress. Head: Normal external exam. Normocephalic. Atraumatic. Eyes: Pupils are equal, round, and reactive to light. Extraocular movements intact. Conjunctiva and sclera normal. Eyelids normal. Throat: Pharynx normal. Uvula midline. Moist mucous membranes. Neck: Normal inspection. Neck supple. Full range of motion. Cardiovascular: Normal heart rate and rhythm. Heart sound normal. No murmurs noted. Pulses normal throughout. Respiratory: No respiratory distress. Painless inspiration. Breath sounds normal. No wheezes/rales/rhonchi noted. Chest nontender. No accessory muscle usage noted or decreased air movement noted. Back: Full range of motion noted. Skin: Skin warm and dry. Normal skin color. Normal skin turgor. No rashes/lesions/lacerations noted. Extremities: + lower extremity edema. Extremities exhibit normal range of motion. Neuro: Oriented. No motor deficit. No sensory deficit. Reflexes normal. Results Reviewed Results Reviewed: - Imaging: Chest CT showed rib fractures and pneumonia, no pneumothorax - Labs: Oxygen saturation was 88% during hospital admission Coding Level of Care Code TCM High MDM <= 14 days Complex EM visit Add On G2211 Diagnoses Pneumonia J18.9 Ribs, multiple fractures S22.49XA COPD (chronic obstructive pulmonary disease) J44.9 HTN (hypertension) I10 Additional Codes NEVAEH-7 Assessment Billing - NEVAEH-7 Assessment Tool: NEVAEH-7 Assessment 33231 ([id number]) PHQ-9 - 54106 - PHQ-9 Billing: Yes ([id number]) Assessment & Plan Assessment & Plan (1) Pneumonia: Code(s): J18.9 - Pneumonia, unspecified organism Category: Medical Plan: The patient was treated with doxycycline and cefroxamine for pneumonia diagnosed during hospitalization. A follow-up chest CT is planned to ensure resolution of pneumonia. (2) Ribs, multiple fractures: Code(s): S22.49XA - Multiple fractures of ribs, unspecified side, initial encounter for closed fracture Category: Medical Plan: The rib fractures were managed conservatively, and the patient reports minimal pain currently. (3) COPD (chronic obstructive pulmonary disease): Comment: Code(s): J44.9 - Chronic obstructive pulmonary disease, unspecified Category: Medical Plan: The patient is using Trelegy for COPD management, which has been effective. An albuterol inhaler is used as a rescue medication. (4) HTN (hypertension): Code(s): I10 - Essential (primary) hypertension Category: Medical Plan: The patient's amlodipine dose was reduced to 5 mg due to peripheral edema. Blood pressure will be monitored, and adjustments will be made if necessary. Plan Plan Patient was informed and verbally consented to the use of an ambient scribe for clinic note documentation during this visit. 1. Pneumonia The patient was treated with doxycycline and cefroxamine for pneumonia diagnosed during hospitalization. A follow-up chest CT is planned to ensure resolution of pneumonia. 2. Rib Fractures The rib fractures were managed conservatively, and the patient reports minimal pain currently. 3. Chronic Obstructive Pulmonary Disease (Copd) The patient is using Trelegy for COPD management, which has been effective. An albuterol inhaler is used as a rescue medication. 4. Hypertension The patient's amlodipine dose was reduced to 5 mg due to peripheral edema. Blood pressure will be monitored, and adjustments will be made if necessary. During the visit, we discussed the management of pneumonia with antibiotics and the need for a follow-up chest CT to confirm resolution. We also reviewed the patient's COPD management with Trelegy and the use of an albuterol inhaler as needed. The patient's hypertension management was adjusted by reducing the amlodipine dose to 5 mg to address peripheral edema, with plans to monitor blood pressure closely. Orders: Orders Magnesium Today Z00.00 - Encounter for general adult medical examination without abnormal findings CT chest w IV con Today J18.9 - Pneumonia, unspecified organism, R09.02 - Hypoxemia Complete Blood Count Auto Diff Today Z00.00 - Encounter for general adult medical examination without abnormal findings Comprehensive Met. Panel Today Z00.00 - Encounter for general adult medical examination without abnormal findings Referrals Home Health Referral G31.84 - Mild cognitive impairment of uncertain or unknown etiology, J44.9 - Chronic obstructive pulmonary disease, unspecified, M19.90 - Unspecified osteoarthritis, unspecified site, M54.30 - Sciatica, unspecified side, S22.32XA - Fracture of one rib, left side, initial encounter for closed fracture, S22.49XA - Multiple fractures of ribs, unspecified side, initial encounter for closed fracture Medications: New amlodipine (Norvasc) 5 mg PO DAILY tamsulosin (Flomax) 0.4 mg PO BEDTIME Refilled kwftmrgiqea-kstghnoey-veukdyim 200-62.5-25 mcg (Trelegy Ellipta) 1 inh inhalation RDAILY 1 ea 3RF Discontinued amlodipine Discontinued Reason: Duplicate 10 mg PO DAILY 90 tabs 1RF Patient Instructions: - Continue taking Trelegy and use the albuterol inhaler as needed for COPD management. - Monitor blood pressure regularly and report any significant changes. - Attend follow-up appointments for chest CT and blood work as scheduled. - Use the spirometer regularly to prevent pneumonia recurrence.
[2025-02-13 13:22] VITALS: BP 114/56; PULSE 69; RESP 20; TEMP 36.5; O2SAT 92; BMI 23.8
== END 2025-02-13 14:19 | disposition home or self-care (01) ==
LOC: HO.HMCSH 13:18
PROVIDERS: Visit Provider Physician Assistant Medical
DX: J18.9 Pneumonia, unspecified organism (principal); S22.41XA Multiple fractures of ribs, right side, initial encounter for closed fracture; J44.9 Chronic obstructive pulmonary disease, unspecified; I10 Essential (primary) hypertension

== ENCOUNTER → 2025-02-13 13:18 | Outpatient (BNVA) | payer MEDICARE, SELFPAY | PROVIDERS: Visit Provider Physician Assistant Medical | DX: J18.9 Pneumonia, unspecified organism (principal); J44.9 Chronic obstructive pulmonary disease, unspecified; I10 Essential (primary) hypertension; S22.49XD Multiple fractures of ribs, unspecified side, subsequent encounter for fracture with routine healing | CPT/HCPCS: 96127; 99212 ==

== ENCOUNTER 2025-02-15 10:14 | Outpatient (REF) | payer MEDICARE, SELFPAY ==
--- OUTSIDE RECORDS SUMMARY | 2025-02-15 11:27 | XMS_ITS | Patient Health Record ---
Author Organization Dru Olea MD Address [address] [place], [place] [id number] Care Team Providers Care Quality Process Engineer Name Role Phone Jose Milner DO Primary [...] Problem Status W/U Status Risk Notes Problem [id number] Chronic obstructive pulmonary disease with acute exacerbation (J44.1) Active confirmed Plan Of Treatment No Information Insurance Providers Payer Name Payer Address Payer Phone Subscriber Number Group Number Insured Name Patient Relationship to Insured Coverage Start Date Coverage End Date MEDICARE [employer] [address] [place] [address] [id number] Mike Kemp Self - patient is the insured MED[employer] BC OF [facility] [address] [facility] [id number] [place] [phone] [id number] Mike Kemp Self - patient is the insured
[2025-02-15 14:57] LABS: MANUAL DIFF FLAG NO
[2025-02-15 15:00] LABS: Hematocrit 38.1 % (42.0-52.0); Hemoglobin 12.2 g/dl (14.0-18.0); Imm Gran Abs Auto 0.03 X10*3/uL (0.00-0.03); Imm Gran Pct Auto 0.3 % (0.0-0.4); Lymphocytes Absolute Auto 4.0 X10*3/uL (1.2-4.9); Mean Corpuscular HGB Conc 32.0 g/dl (31.0-36.0); Mean Corpuscular Hemoglobin 29.0 pg (27.0-33.0); Mean Corpuscular Volume 90.7 fL (80.0-98.0); NRBC Abs Auto 0.000 X10*3/uL (0.0-0.012); NRBC Pct Auto 0.0 /100WBC (0.0-0.2); Platelet Count 392 X10*3/uL (160-400); Red Blood Count 4.20 X10*6/uL (4.60-5.80); White Blood Count 9.9 X10*3/uL (4.8-10.8)
[2025-02-15 15:57] LABS: Alanine Aminotransferase 23 U/L (0-40); Albumin Level 4.1 g/dL (3.5-5.0); Alkaline Phosphatase 99 U/L (39-117); Anion Gap 13 (12-20); Aspartate Amino Transferase 34 U/L (5-37); Blood Urea Nitrogen 26 mg/dL (9-16); Calcium 9.4 mg/dL (8.4-10.2); Carbon Dioxide 25 mmol/L (22-29); Chloride 106 mmol/L (96-108); Estimated Glomerular Filt Rate > 60; Magnesium 2.1 mg/dL (1.6-2.6); Potassium 4.3 mmol/L (3.3-5.1); Sodium 140 mmol/L (135-145); Total Protein 7.4 g/dL (6.5-8.0)
== END 2025-02-15 10:15 | disposition home or self-care (01) ==
LOC: HO.HMGCLDS 10:14
PROVIDERS: PCP Internal Medicine; Visit Provider Physician Assistant Medical
DX: Z00.00 Encounter for general adult medical examination without abnormal findings (principal)
CPT/HCPCS: 36415; 80053; 83735; 85025

== ENCOUNTER 2025-02-16 13:29 | Outpatient (AMB) | payer MEDICARE, SELFPAY ==
[2025-02-16 13:39] VITALS: BP 120/48; PULSE 55; O2SAT 91; BMI 23.8
--- NOTE | 2025-02-16 13:39 | MHC.OFFVIS ---
Vital Signs 02/16/25 13:39 Height 5 ft 5.75 in Weight 146 lb 9.718 oz BMI 23.8 BP 120/48 L Blood Pressure Location Lt brachial Position Sitting Pulse 55 Pulse Source Pulse Oximeter Pulse Oximetry (%) 91 L Oxygen Delivery Method Room Air Intake Visit Reasons: Shortness of breath Intake Note: pt is here for follow up and states he is doing not too bad, he had pneumonia and had [facility] for [facility]. Supervisor Cartography Required: No Allergies No Known Drug Allergies (NO KNOWN DRUG ALLERGIES) Allergy (Unknown, Verified 02/16/25 13:58) NONE latex Allergy (Uncoded 02/16/25 13:58) Rash Medication List - Last Reconciled 02/16/25 by Caitlin Cavanaugh MD acetaminophen (Tylenol) 975 mg (3 x 325 mg) PO QID PRN acetaminophen (Tylenol Extra Strength) 500 mg PO Q6H PRN albuterol sulfate 90 mcg/actuation 2 puffs inhalation Q4H PRN amlodipine (Norvasc) 5 mg PO DAILY aspirin 81 mg PO DAILY atorvastatin 40 mg PO DAILY fluoxetine 20 mg PO DAILY xcfxlqgrdfu-nciachacs-edzmyeaf 200-62.5-25 mcg (Trelegy Ellipta) 1 inh inhalation RDAILY latanoprost 0.005% 1 drp ophthalmic (eye) BEDTIME tamsulosin (Flomax) 0.4 mg PO BEDTIME Do you need a note to return to daycare/school/sports/work: No HPI HPI Shortness of breath: Details: This 89 years old very pleasant gentleman comes for follow-up after more than 6 months. Normally he is being followed for chronic obstructive pulmonary disease which is mild to moderate and remains well controlled. This time he was admitted to [facility] on , after a gentle for while he was picking up the trash, He had fractures of 10-12 on the left side with a touch of pneumonia. See the hospital course below: Recent history : 89-year-old male with a past medical history of HTN, HLD, dm, BCC, COPD, CAD, prostate cancer, mild cognitive impairment, sick sinus syndrome status post cardiac pacemaker, chronic anemia; presented to the hospital with a chief complaint of fall. Patient was admitted with left-sided multiple rib fractures:CT chest showed 10-12 left rib fractures with no evidence of pneumothorax or hemothorax: Patient was started on pain control with p.o. Tylenol, IV Dilaudid in addition incentive spirometry and also seen by Pulmonary: With the above supportive care patient pain seems to be better control, in addition patient was also found to have acute hypoxemic respiratory failure with pneumonia/also in the setting of multiple rib fractures: Patient with the above pain management and IV antibiotics seems to be improved significantly, blood culture negative, patient is still require oxygen but not having shortness of breath even with ambulating seems improving significantly. His antibiotics switched to p.o.. He spent 2 weeks in the rehab, .and then came home Claims that he is doing well, has no respiratory distress. He has his usual mild intermittent cough. He is doing breathing exercises with incentive spirometry device and Acapella valve . He was discharged home without oxygen. Continue to use his Breo 200-251 inhalation daily and uses albuterol only p.r.n. [facility] Medical History Atrial tachycardia, paroxysmal Peripheral edema Chronic anemia New onset type 2 diabetes mellitus Overweight with body mass index (BMI) of 25 to 25.9 in adult Basal cell carcinoma of ear Glucose intolerance Sciatica Lumbar herniated disc Osteoarthritis History of basal cell carcinoma Mucopurulent chronic bronchitis Obstructive airway disease Mild cognitive impairment Mild hypercholesterolemia Coronary artery disease SSS (sick sinus syndrome) Cough COPD (chronic obstructive pulmonary disease) Prostate cancer Eczema Gallstones Nocturia Kidney cysts Kidney stones Hyperlipidemia HTN (hypertension) Prostate cancer Surgical History History of colonoscopy History of cholecystectomy History of herniorrhaphy History of right hip replacement History of prostatectomy Family History Father No problems noted. Mother No problems noted. Social History Household Members: Spouse Housing: House Do you presently have visiting nurse or other home services: No Alcohol intake: current Alcohol intake frequency: holidays/special occasions only Patient Tobacco Use Status: Former Tobacco user Years Smoked: 30 years service: No Current occupational status: retired Cognitive needs: Yes (cane) Hearing needs: No Vision needs: Yes (rx glasses) Review of Systems Const All systems reviewed & are unremarkable except as noted in HPI and below Eyes Reports no additional complaints ENT Reports Normal hearing present (Slightly impaired) Card Denies chest pain, Denies irregular heart rhythm and Denies leg edema Resp Reports as per HPI GI Reports no additional complaints Reports no additional complaints Musc Reports no additional complaints Skin/Breast Reports system reviewed and no additional complaints, except as documented Neuro Reports no additional complaints and Reports Normal hearing present (Slightly impaired) Physical Exam Vital Signs: Last Vital Signs Pulse 55 02/16/25 13:39 BP 120/48 L 02/16/25 13:39 Pulse Ox 91 L 02/16/25 13:39 Oxygen Delivery Method Room Air 02/16/25 13:39 BMI result Body Mass Index 23.8 Const General: healthy appearing, comfortable, no acute distress, alert and awake Orientation/consciousness: patient oriented x3 HEENT Head: Yes normal to inspection General nose exam: No nasal polyps present and No nasal discharge present Face and sinus: Yes sinuses nontender Mouth: oropharynx normal Throat: Yes posterior oropharynx normal Eyes General: appearance normal, both eyes and all related structures Neck Neck: Yes normal visual inspection, Yes no lymphadenopathy, Yes trachea midline and Yes no JVD Thyroid: Thyroid normal Chest Chest palpation & inspection: normal inspection of the chest, normal palpation of entire chest wall and tenderness (Stye tenderness over the left lower thoracic area) Resp Other: Percussion note is resonant. Breath sounds are slightly distant with prolonged expiratory phase. Both lungs are clear no wheezes rhonchi or Creps are heard Cardio Palpation: normal PMI Rate: regular rate Rhythm: regular rhythm Heart sounds: no gallops and no murmurs Peripheral pulses: Peripheral pulses 2+ throughout GI Palpation (GI): Soft to palpation, nontender, No hepatosplenomegaly present and no masses Auscultation: normal bowel sounds Back/Spine/Pelvis Thoracic/Lumbar Spine: thoracic and lumbar spine normal to inspection Skin General skin exam: no rashes or lesions noted Neuro General: patient oriented x3 and no focal motor deficits Cranial nerves: Yes Normal hearing present (Slightly impaired) Extrem General: Yes normal to inspection, Yes no clubbing, cyanosis or edema and Yes no calf tenderness Psych Appearance: grossly normal and well kempt Speech and movement: Normal speech and movement present Office Procedures Spirometry Testing Spirometry Comments: [place] [address]60- Spirometry Results Reviewed Results Reviewed: SPIROMETRY IN THE OFFICE: 01/21/22 02/16/25 FVC 54 % 81 % Flow volumes are decreased a bit , due to recent chest wall injury FEV1 41 % 38 % FEF 25-75 22 % 14 % Assessment & Plan Assessment & Plan (1) COPD (chronic obstructive pulmonary disease): Comment: HE HAS CHRONIC OBSTRUCTIVE PULMONARY DISEASE, MILD TO MODERATE FOR MANY YEARS AND IT HAS BASICALLY REMAINED VERY STABLE. Code(s): J44.9 - Chronic obstructive pulmonary disease, unspecified Category: Medical Plan: CONTINUE TO USE BREO 200-25 1 INHALATION DAILY ALBUTEROL HFA 2 PUFFS Q 4-6 HOURS P.R.N. (2) Ribs, multiple fractures: Comment: HE HAD A FALL AND CT SCAN OF THE CHEST SHOWED FRACTURE OF 10-12 RIBS ON THE LEFT SIDE, WITH MINIMAL PNEUMONIA LEFT BASE. TREATED IN [facility] AND THEN DISCHARGED TO THE REHAB FACILITY, FROM WHERE HE CAME HOME COUPLE OF WEEKS AGO AND IS HERE TODAY FOR FOLLOW-UP. AT THIS TIME HE HAS NO ACTIVE PAIN. LUNGS ARE CLEAR ON AUSCULTATION. Code(s): S22.49XA - Multiple fractures of ribs, unspecified side, initial encounter for closed fracture Category: Medical Plan: CONTINUE DOING DEEP BREATHING EXERCISES WITH INCENTIVE SPIROMETRY DEVICE , 3 TO 4 TIMES A DAY. CONTINUE TO USE ACAPELLA WELL 3 TO 4 TIMES A DAY TO EXPECTORATES MUCUS Orders: Orders AMB Spirometry Testing Today J44.9 - Chronic obstructive pulmonary disease, unspecified Coding Level of Care Code Est Pt Level 4 (61137) Diagnoses COPD (chronic obstructive pulmonary disease) J44.9 Ribs, multiple fractures S22.49XA CPT Codes Spirometry - CPT: 77078- Spirometry ([id number])
== END 2025-02-16 14:21 | disposition home or self-care (01) ==
LOC: HO.HPS 13:29
PROVIDERS: Visit Provider Internal Medicine
DX: J44.9 Chronic obstructive pulmonary disease, unspecified (principal); S22.49XA Multiple fractures of ribs, unspecified side, initial encounter for closed fracture
CPT/HCPCS: 94010; 99214

== ENCOUNTER → 2025-02-16 13:29 | Outpatient (BNVA) | payer MEDICARE, SELFPAY | PROVIDERS: Visit Provider Internal Medicine | DX: J44.9 Chronic obstructive pulmonary disease, unspecified (principal); S22.42XD Multiple fractures of ribs, left side, subsequent encounter for fracture with routine healing; Z87.01 Personal history of pneumonia (recurrent) | CPT/HCPCS: 94010; 99212 ==

== ENCOUNTER 2025-03-21 11:05 | Outpatient (AMB) | payer MEDICARE, SELFPAY ==
--- NOTE | 2025-03-21 11:06 | MHC.PC.OV ---
Vital Signs 03/21/25 11:07 03/21/25 12:08 Height 5 ft 5.75 in Weight 147 lb 2 oz BMI 23.9 BP 145/71 H 122/58 L Blood Pressure Location Rt brachial Rt brachial Position Sitting Respiration 20 Pulse 69 Pulse Source Pulse Oximeter Temp 97.4 F Temp Source Temporal Artery Scan Pulse Oximetry (%) 94 Oxygen Delivery Method Room Air Intake Visit Reasons: 1 month follow up Donation Specialist Required: No Manager Cardiovascular: Not Required per policy Accompanied by: Spouse Allergies No Known Drug Allergies (NO KNOWN DRUG ALLERGIES) Allergy (Unknown, Verified 03/21/25 12:08) NONE latex Allergy (Uncoded 03/21/25 12:08) Rash Medication List - Last Reconciled 03/21/25 by Tita Colorado PA-C albuterol sulfate 90 mcg/actuation 2 puffs inhalation Q4H PRN amlodipine (Norvasc) 5 mg PO DAILY aspirin 81 mg PO DAILY atorvastatin 40 mg PO DAILY fluoxetine 20 mg PO DAILY fluticasone furoate-vilanterol 200-25 mcg/dose (Breo Ellipta) 1 ea inhalation DAILY latanoprost 0.005% 1 drp ophthalmic (eye) BEDTIME tamsulosin (Flomax) 0.4 mg PO BEDTIME Tobacco use date assessed: 11/23/24 Fall risk assessment: 2 + Falls in past year Last assessed Fall Risk: 03/21/25 Dental Screening Dental Screen Date: 03/21/25 Did you have a dental visit in the last 12 months?: Yes Did you have a dental problem in the last 6 months where you did not have access to dental care?: No Was dental information given to patient?: Patient has dentist HPI 1 month follow up HPI Details The patient is an 89-year-old male presenting with follow-up for pneumonia, rib fractures, and thyroid nodules, along with new symptoms of facial bruising and headache. The facial bruising appeared suddenly last Thursday without any known trauma or fall, and it has been gradually improving. The patient denies any changes in vision, dizziness, or nausea associated with the bruising. The headache has been present since the appearance of the bruising, localized to one side, and has persisted for about a week. There is no history of similar headaches, and the patient has been advised to undergo a CT scan to rule out any intracranial issues. The patient has a history of pneumonia with infiltrates in the right middle lobe, which was treated with antibiotics. He also has rib fractures on the left side, specifically the 10th to 12th ribs, which were identified during a previous hospitalization. Thyroid nodules were incidentally found during a previous CT scan, and a thyroid ultrasound has been recommended for further evaluation. The patient's thyroid function tests were normal, with a TSH level of 2.72. The patient is on amlodipine 5 mg for hypertension, which has been well-controlled with recent blood pressure readings of 122/58 mmHg. [facility] Medical History (Updated 03/21/25 @ 12:12 by Tita Colorado PA-C) Headache Facial bruising Thyroid nodule Atrial tachycardia, paroxysmal Peripheral edema Chronic anemia New onset type 2 diabetes mellitus Overweight with body mass index (BMI) of 25 to 25.9 in adult Basal cell carcinoma of ear Glucose intolerance Sciatica Lumbar herniated disc Osteoarthritis History of basal cell carcinoma Mucopurulent chronic bronchitis Obstructive airway disease Mild cognitive impairment Mild hypercholesterolemia Coronary artery disease SSS (sick sinus syndrome) Cough COPD (chronic obstructive pulmonary disease) Prostate cancer Eczema Gallstones Nocturia Kidney cysts Kidney stones Hyperlipidemia HTN (hypertension) Prostate cancer Surgical History History of colonoscopy History of cholecystectomy History of herniorrhaphy History of right hip replacement History of prostatectomy Family History Father No problems noted. Mother No problems noted. Social History Household Members: Spouse Housing: House Do you presently have visiting nurse or other home services: No Alcohol intake: current Alcohol intake frequency: holidays/special occasions only Patient Tobacco Use Status: Former Tobacco user Years Smoked: 30 years service: Yes Current occupational status: retired Cognitive needs: Yes (cane) Hearing needs: No Vision needs: Yes (rx glasses) Questionnaire Thrive Questionnaire Date Thrive assessed: 01/02/25 NEVAEH-7 AMB Questionnaire NEVAEH-7 Date NEVAEH - 7 assessed: 11/23/24 Source: Developed by Drs. Jose Mederos, Erica Bailey, Mika Kern and colleagues, with an educational krista from [employer]. Review of Systems Const Details: - Neurological: Denies changes in vision, dizziness, double vision, vomiting, nausea - Cardiovascular: Denies chest pain All systems reviewed & are unremarkable except as noted in HPI and below Physical exam (Primary Care) Vital Signs: Last Vital Signs Temp 97.4 F 03/21/25 11:07 Pulse 69 03/21/25 11:07 Resp 20 03/21/25 11:07 BP 145/71 H 03/21/25 11:07 Pulse Ox 94 03/21/25 11:07 Oxygen Delivery Method Room Air 03/21/25 11:07 Care Plan Goal for BP management: <140/90 at Goal BMI result Body Mass Index 23.9 normal BMI Tobacco/Smoking Status: Tobacco use Status Tobacco use date assessed 11/23/24 03/21/25 11:06 Patient Tobacco Use Status Former Tobacco user 03/21/25 11:06 Thrive Assessment: Date of Thrive Assessment Date Thrive assessed 01/02/25 03/21/25 11:06 Const Other: Appearance: Alert. Oriented X3. No acute distress. Head: Normal external exam. Normocephalic. Atraumatic. Eyes: Pupils are equal, round, and reactive to light. Extraocular movements intact. Conjunctiva and sclera normal. Eyelids normal. Mild ecchymosis to right periorbital area nontender. Extraocular exam is within normal limits. Throat: Pharynx normal. Uvula midline. Moist mucous membranes. Neck: Normal inspection. Neck supple. Full range of motion. Cardiovascular: Normal heart rate and rhythm. Heart sound normal. No murmurs noted. Pulses normal throughout. Respiratory: No respiratory distress. Painless inspiration. Breath sounds normal. No wheezes/rales/rhonchi noted. Chest nontender. No accessory muscle usage noted or decreased air movement noted. Back: Full range of motion noted. Skin: Skin warm and dry. Normal skin color. Normal skin turgor. No rashes/lesions/lacerations noted. Extremities: No lower extremity edema. Extremities exhibit normal range of motion. Neuro: Oriented X 3. No motor deficit. No sensory deficit. Reflexes normal. Office Procedures Flu Questionnaire Does the patient have a severe egg allergy?: No Does the patient have severe life threatening allergies?: No Does the patient have a fever or illness today?: No Has the patient ever had Guillain-Mal[place] Syndrome?: No Has the patient ever had any past reaction to a flu shot?: No Immunizations Fluarix [id number] (PF) 45 mcg (15 mcg x 3)/0.5 mL IM syringe Performing Provider: Tita Colorado PA-C [facility] Administered by: Lori Esteban CMA on 03/21/25 11:24 Dose Route Admin Location Dispensed Lot Number Expiration Date [employer]er 0.5 mL IM Left Deltoid 0.5 mL [id number] 12/26/25 [id number] [employer] VIS Given Date VIS Provided VIS Publication Date 03/21/25 Single Vaccine 24 Eligibility Eligibility Date Funding Source Not [facility] Eligible 03/21/25 Private Results Reviewed Results Reviewed: - Thyroid function tests: TSH level 2.72, normal Coding Level of Care Code Est Pt Level 4 (01981) Complex EM visit Add On G2211 Diagnoses Facial bruising S00.83XA Headache R51.9 Ribs, multiple fractures S22.49XA Thyroid nodule E04.1 HTN (hypertension) I10 Assessment & Plan Assessment & Plan (1) Facial bruising: Code(s): S00.83XA - Contusion of other part of head, initial encounter Category: Medical Plan: The facial bruising appeared suddenly without any known trauma or fall, and it has been gradually improving. The patient denies any changes in vision, dizziness, or nausea associated with the bruising. (2) Headache: Code(s): R51.9 - Headache, unspecified Category: Medical Plan: The headache has been present since the appearance of the bruising, localized to one side, and has persisted for about a week. A CT scan has been advised to rule out any intracranial issues. (3) Ribs, multiple fractures: Comment: HE HAD A FALL AND CT SCAN OF THE CHEST SHOWED FRACTURE OF 10-12 RIBS ON THE LEFT SIDE, WITH MINIMAL PNEUMONIA LEFT BASE. TREATED IN [facility] AND THEN DISCHARGED TO THE REHAB FACILITY, FROM WHERE HE CAME HOME COUPLE OF WEEKS AGO AND IS HERE TODAY FOR FOLLOW-UP. AT THIS TIME HE HAS NO ACTIVE PAIN. LUNGS ARE CLEAR ON AUSCULTATION. Code(s): S22.49XA - Multiple fractures of ribs, unspecified side, initial encounter for closed fracture Category: Medical Plan: The patient has rib fractures on the left side, specifically the 10th to 12th ribs, identified during a previous hospitalization. (4) Thyroid nodule: Code(s): E04.1 - Nontoxic single thyroid nodule Category: Medical Plan: Thyroid nodules were incidentally found during a previous CT scan, and a thyroid ultrasound has been recommended for further evaluation. The patient's thyroid function tests were normal, with a TSH level of 2.72. (5) HTN (hypertension): Code(s): I10 - Essential (primary) hypertension Category: Medical Plan: The patient is on amlodipine 5 mg for hypertension, which has been well-controlled with recent blood pressure readings of 122/58 mmHg. Plan Plan Patient was informed and verbally consented to the use of an ambient scribe for clinic note documentation during this visit. 1. Facial Bruising The facial bruising appeared suddenly without any known trauma or fall, and it has been gradually improving. The patient denies any changes in vision, dizziness, or nausea associated with the bruising. 2. Headache The headache has been present since the appearance of the bruising, localized to one side, and has persisted for about a week. A CT scan has been advised to rule out any intracranial issues. 3. Pneumonia The patient has a history of pneumonia with infiltrates in the right middle lobe, which was treated with antibiotics. 4. Rib Fractures The patient has rib fractures on the left side, specifically the 10th to 12th ribs, identified during a previous hospitalization. 5. Thyroid Nodules Thyroid nodules were incidentally found during a previous CT scan, and a thyroid ultrasound has been recommended for further evaluation. The patient's thyroid function tests were normal, with a TSH level of 2.72. 6. Hypertension The patient is on amlodipine 5 mg for hypertension, which has been well-controlled with recent blood pressure readings of 122/58 mmHg. I discussed with the patient the importance of monitoring the facial bruising and headache, and the need for a CT scan to rule out any serious intracranial issues. We also reviewed the plan for a thyroid ultrasound to evaluate the nodules further, and I reassured the patient about the normal thyroid function tests. The patient was advised to continue taking amlodipine for hypertension, which is currently well-controlled. Orders: Orders Influenza [id number] Immunization Today Z23 - Encounter for immunization US thyroid Today E04.1 - Nontoxic single thyroid nodule Patient Instructions: - Monitor facial bruising and report any worsening or new symptoms. - Attend the scheduled CT scan and thyroid ultrasound appointments. - Continue taking amlodipine as prescribed for hypertension.
[2025-03-21 11:07] VITALS: BP 145/71; PULSE 69; RESP 20; TEMP 36.3; O2SAT 94; BMI 23.9
[2025-03-21 12:08] VITALS: BP 122/58
== END 2025-03-21 11:37 | disposition home or self-care (01) ==
LOC: HO.HMCSH 11:05
PROVIDERS: PCP Physician Assistant Medical; Visit Provider Physician Assistant Medical
DX: S00.83XA Contusion of other part of head, initial encounter (principal); R51.9 Headache, unspecified; S22.49XA Multiple fractures of ribs, unspecified side, initial encounter for closed fracture; E04.1 Nontoxic single thyroid nodule; I10 Essential (primary) hypertension; Z23 Encounter for immunization

== ENCOUNTER → 2025-03-21 11:05 | Outpatient (BNVA) | payer MEDICARE, SELFPAY | PROVIDERS: PCP Physician Assistant Medical; Visit Provider Physician Assistant Medical | DX: Z23 Encounter for immunization (principal); R51.9 Headache, unspecified; E04.1 Nontoxic single thyroid nodule; I10 Essential (primary) hypertension; S00.83XD Contusion of other part of head, subsequent encounter; S22.49XD Multiple fractures of ribs, unspecified side, subsequent encounter for fracture with routine healing | CPT/HCPCS: 90471; 90656; 99212 ==

== ENCOUNTER 2025-03-23 09:26 | Outpatient (REF) | payer MEDICARE, SELFPAY ==
--- NOTE | ~2025-03-23 | CT_ITS ---
EXAMINATION: CT CHEST WITH CONTRAST CLINICAL INFORMATION: J18.9. Pneumonia, unspecified organism. COMPARISON: December 31, 2024. TECHNIQUE: Multidetector volumetric CT imaging of the chest was obtained after the administration of 65 mL of Omnipaque 350 intravenous contrast without immediate adverse reactions. Axial MIP volume rendering provided. Sagittal and coronal reformatted images were obtained. This CT examination was performed using dose optimization techniques as appropriate, variously including the following: *Automated exposure control *Adjustment of mA and/or kV according to patient size (this includes techniques or standardized protocols for targeted exams where dose is matched to indication/reason for exam; i.e. extremities or head) *Use of iterative reconstruction technique DLP: 95 mGy centimeter. FINDINGS: ASSET AVAILABILITY LEADER: Left-sided pacemaker with 2 intact electrode leads in the right heart chambers. Both upper extremities at the size of the head. Blunting right costophrenic angle. Pulmonary reticular nodular pattern. Multilevel spondylosis. Vascular clips right upper quadrant abdomen likely prior cholecystectomy. LUNGS: Chamber pattern involving both lower lung lobes, lingula, right middle lung lobe and to a lesser extent right upper lung lobe and left upper lung lobe. Patchy irregular shaped pulmonary groundglass attenuation in the right lower lung lobe lingula and right middle lung lobe. Secretions layering within the dependent portion of the trachea and right mainstem bronchus into the bronchi analysis of the right lower lung lobe. Peribronchial septal thickening. Bilateral, less than 5 mm pulmonary nodules in the periphery of the lungs. MEDIASTINUM: Prominent, 13 mm mediastinal lymph nodes. Pericardial effusion/pericardial thickening, small to moderate volume. Calcified plaques in the thoracic aorta wall and its main branches and the coronary arteries. No gross aneurysm or dissection, thoracic aorta. No pneumomediastinum. No hemopericardium. Electrode leads in the right heart chambers. The thyroid gland is not enlarged. Subcentimeter low density nodules.. PLEURA: No pleural effusion. No calcified pleural plaques. No hemothorax. AXILLA: No lymphadenopathy. UPPER ABDOMEN: Hiatal hernia, moderate volume. Bilateral exophytic renal cysts. Status post cholecystectomy. Soft tissue fullness measuring 45 Hounsfield units in the left adrenal gland. 8 mm saccular dilatation of the main pancreatic duct. Common bile duct measures 4 mm. OSSEOUS STRUCTURES: Multilevel spondylosis throughout the axial skeleton. Sternum is intact. Old healed rib fractures posterior right lower hemithorax. Degenerative changes in the shoulders, right lower and the left side. 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 Probable aspiration pneumonia. Fleischner guidelines were followed. Electronically signed by: Dontrell Coates MD 03/23/2025 11:05 AM EDT RP
[2025-03-23] MEDS: iohexoL 350 MG/ML 100 ML INFUS..BTL IV (10:26)
[2025-03-23 15:39] LABS: Creatinine POC 1.1 mg/dL (0.5-1.4); GFR POC > 60
== END 2025-03-23 09:27 | disposition home or self-care (01) ==
LOC: HO.CT 09:26
PROVIDERS: PCP Physician Assistant Medical; Visit Provider Physician Assistant Medical
DX: J18.9 Pneumonia, unspecified organism (principal); R09.02 Hypoxemia
CPT/HCPCS: 71260; 82565; Q9967

== ENCOUNTER → 2025-03-23 09:28 | Outpatient (BNV) | payer MEDICARE, SELFPAY | PROVIDERS: PCP Physician Assistant Medical; Visit Provider Radiology Diagnostic Radiology | DX: J18.9 Pneumonia, unspecified organism (principal) | CPT/HCPCS: 71260 ==

== ENCOUNTER 2025-03-28 14:16 | Outpatient (AMB) | payer MEDICARE, SELFPAY ==
--- NOTE | 2025-03-28 14:24 | MHC.OFFVIS ---
Vital Signs 03/28/25 14:25 Height 5 ft 5.75 in Weight 146 lb 9.718 oz BMI 23.8 BP 120/60 Blood Pressure Location Lt brachial Position Sitting Pulse 63 Pulse Source Pulse Oximeter Pulse Oximetry (%) 94 Oxygen Delivery Method Room Air Intake Visit Reasons: Abnormal CT scan Intake Note: pt is here to go over ct scan. 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 & declined Allergies latex Allergy (Uncoded 03/28/25 15:03) Rash Medication List - Last Reconciled 03/28/25 by Caitlin Cavanaugh MD albuterol sulfate 90 mcg/actuation 2 puffs inhalation Q4H PRN amlodipine (Norvasc) 5 mg PO DAILY aspirin 81 mg PO DAILY atorvastatin 40 mg PO DAILY fluoxetine 20 mg PO DAILY fluticasone furoate-vilanterol 200-25 mcg/dose (Breo Ellipta) 1 ea inhalation DAILY latanoprost 0.005% 1 drp ophthalmic (eye) BEDTIME tamsulosin (Flomax) 0.4 mg PO BEDTIME Do you need a note to return to daycare/school/sports/work: No HPI HPI Abnormal CT scan: Details: 89 YEARS OLD VERY PLEASANT GENTLEMAN, COMES IN FOR FOLLOW-UP AFTER HE HAD CT SCAN OF THE CHEST. HE IS KNOWN TO HAVE CHRONIC OBSTRUCTIVE PULMONARY DISEASE MAINLY DUE TO CHRONIC BRONCHITIS/ BRONCHIECTASIS. WHICH IS DESCRIBED TO SHOW PERSISTENT AIRSPACE DISEASE IN RIGHT LOWER LOBE LINGULAR LOBE BUT IT IS LESS PROMINENT FROM BEFORE POSSIBILITIES SUCH SANDRA HE FEELS OKAY WITH USE OF BREO 1 INHALATION DAILY AND ALBUTEROL P.R.N.. HE IS USED TO DO DEEP BREATHING EXERCISES 3 TIMES A DAY, AND ALSO USES ACAPELLA VALVE TO FACILITATE THE CLEARANCE OF MUCUS. HE CLAIMS THAT HIS BREATHING STATUS IS SAME USUAL OVER. HE HAS HAD NO BOUTS OF FEVER INCREASED MUCUS EXPECTORATION. HAD CT SCAN OF THE CHEST ON WHICH IS DESCRIBED TO SHOW SOME AIRSPACE DISEASE IN RIGHT LOWER LOBE AND LINGULAR LOBE, BUT LESS PRONOUNCED THAN THE LAST CT SCAN IN DECEMBER 2024. A RADIOLOGY REPORT , MENTIONED POSSIBILITY OF MYCOBACTERIUM AVIUM POSSIBILITY OF ASPIRATION PNEUMONIAS, SO THE BECAME SOMEWHAT CONCERNED. [facility] Medical History (Updated 03/28/25 @ 16:33 by Caitlin Cavanaugh MD) Bronchiectasis Chronic bronchitis Headache Facial bruising Thyroid nodule Atrial tachycardia, paroxysmal Peripheral edema Chronic anemia New onset type 2 diabetes mellitus Overweight with body mass index (BMI) of 25 to 25.9 in adult Basal cell carcinoma of ear Glucose intolerance Sciatica Lumbar herniated disc Osteoarthritis History of basal cell carcinoma Mucopurulent chronic bronchitis Obstructive airway disease Mild cognitive impairment Mild hypercholesterolemia Coronary artery disease SSS (sick sinus syndrome) Cough COPD (chronic obstructive pulmonary disease) Prostate cancer Eczema Gallstones Nocturia Kidney cysts Kidney stones Hyperlipidemia HTN (hypertension) Prostate cancer Surgical History History of colonoscopy History of cholecystectomy History of herniorrhaphy History of right hip replacement History of prostatectomy Family History Father No problems noted. Mother No problems noted. Social History Household Members: Spouse Housing: House Do you presently have visiting nurse or other home services: No Alcohol intake: current Alcohol intake frequency: holidays/special occasions only Patient Tobacco Use Status: Former Tobacco user Years Smoked: 30 years service: Yes Current occupational status: retired Cognitive needs: Yes (cane) Hearing needs: No Vision needs: Yes (rx glasses) Review of Systems Const All systems reviewed & are unremarkable except as noted in HPI and below Eyes Reports no additional complaints ENT Reports Normal hearing present (Slightly impaired) Card Denies chest pain, Denies irregular heart rhythm and Denies leg edema Resp Reports as per HPI GI Reports no additional complaints Reports no additional complaints Musc Reports no additional complaints Skin/Breast Reports system reviewed and no additional complaints, except as documented Neuro Reports no additional complaints and Reports Normal hearing present (Slightly impaired) Physical Exam Vital Signs: Last Vital Signs Pulse 63 03/28/25 14:25 BP 120/60 03/28/25 14:25 Pulse Ox 94 03/28/25 14:25 Oxygen Delivery Method Room Air 03/28/25 14:25 BMI result Body Mass Index 23.8 Const General: healthy appearing, comfortable, no acute distress, alert and awake Orientation/consciousness: patient oriented x3 HEENT Head: Yes normal to inspection General nose exam: No nasal polyps present and No nasal discharge present Face and sinus: Yes sinuses nontender Mouth: oropharynx normal Throat: Yes posterior oropharynx normal Eyes General: appearance normal, both eyes and all related structures Neck Neck: Yes normal visual inspection, Yes no lymphadenopathy, Yes trachea midline and Yes no JVD Thyroid: Thyroid normal Chest Chest palpation & inspection: normal inspection of the chest, normal palpation of entire chest wall and tenderness (Stye tenderness over the left lower thoracic area) Resp Other: Percussion note is resonant. Breath sounds are slightly distant with prolonged expiratory phase. Both lungs are clear no wheezes rhonchi or Creps are heard Cardio Palpation: normal PMI Rate: regular rate Rhythm: regular rhythm Heart sounds: no gallops and no murmurs Peripheral pulses: Peripheral pulses 2+ throughout GI Palpation (GI): Soft to palpation, nontender, No hepatosplenomegaly present and no masses Auscultation: normal bowel sounds Back/Spine/Pelvis Thoracic/Lumbar Spine: thoracic and lumbar spine normal to inspection Skin General skin exam: no rashes or lesions noted Neuro General: patient oriented x3 and no focal motor deficits Cranial nerves: Yes Normal hearing present (Slightly impaired) Extrem General: Yes normal to inspection, Yes no clubbing, cyanosis or edema and Yes no calf tenderness Psych Appearance: grossly normal and well kempt Speech and movement: Normal speech and movement present Results Reviewed Results Reviewed: CT SCAN OF CHEST 03/23/2025 IMPRESSION: Persistent although less 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 Probable aspiration pneumonia. Assessment & Plan Assessment & Plan (1) COPD (chronic obstructive pulmonary disease): Comment: HE HAS CHRONIC OBSTRUCTIVE PULMONARY DISEASE, MILD TO MODERATE FOR MANY YEARS AND IT HAS BASICALLY REMAINED VERY STABLE. Code(s): J44.9 - Chronic obstructive pulmonary disease, unspecified Category: Medical Plan: CONTINUE TO USE BREO 200-251 INHALATION DAILY AND ALBUTEROL HFA 2 PUFFS Q 4-6 HOURS P.R.N.. ALSO ADD MUCINEX 400 MG B.I.D.. (2) Cough: Comment: COUGH IS PART OF HIS CHRONIC OBSTRUCTIVE PULMONARY DISEASE. IT REMAINS CONTROLLED LONG HE USES BREO. USE OF ACAPELLA VALVE IS HELPING TO CLEAR THE MUCUS . Code(s): R05 - Cough Category: Medical Plan: ADVISED TO CONTINUE USING BREO 200-25 ONCE A DAY. USE EXPIRATORY HE EXERCISES WITH ACAPELLA VALVE , T.I.D.. ALSO ADD MUCINEX 400 MG B.I.D. (3) Chronic bronchitis: Comment: HE DOES HAVE HISTORY OF CHRONIC BRONCHITIS, WITH SYMPTOMS OF CHRONIC COUGH DESCRIBED UNDER COUGH. Code(s): J42 - Unspecified chronic bronchitis Category: Medical Plan: TREATMENT DESCRIBED UNDER COUGH. (4) Bronchiectasis: Comment: THE RADIOLOGIC PICTURE IS THAT OF BRONCHIAL THICKENING , WITH SOME BRONCHIAL DILATATION. I THINK HE HAS COMBINATION OF CHRONIC BRONCHITIS AND AREAS OF BRONCHIECTASIS, SHOWING NODULARITIES ON THE CT SCAN Code(s): J47.9 - Bronchiectasis, uncomplicated Category: Medical Plan: DISCUSSED WITH THE PATIENT. THE NEXT STEP COULD BE BRONCHOSCOPY WITH BRONCHIAL WASHING AND SENDING MUCUS GRAM STAIN AND CULTURE. I DISCUSSED WITH THE PATIENT AND HIS . THE CONCLUSION IS THAT LONG MR. CLEMONS, IS DOING WELL WITH THE CURRENT TREATMENT, WE WILL NOT PROCEED WITH BRONCHOSCOPY. Coding Level of Care Code Est Pt Level 4 (14079) Diagnoses COPD (chronic obstructive pulmonary disease) J44.9 Cough R05 Chronic bronchitis J42 Bronchiectasis J47.9
[2025-03-28 14:25] VITALS: BP 120/60; PULSE 63; O2SAT 94; BMI 23.8
--- OUTSIDE RECORDS SUMMARY | 2025-03-28 15:39 | XMS_ITS | Data Portability ---
Author Organization [facility], [facility] Address [address] [place] [address] Care Team Providers Care Taker Out Name Role Phone JOYCELYN LEÓN Primary Care [...] X-rays reviewed in the office today on [employer] [facility] PACS: AP pelvis and right frog lateral [...] of their questions today in the office. [facility] speech recognition principal account clerk software was used to create portions of this document. An attempt at proofreading has been made to minimize errors. Please call for corrections. [email or web address] Not available 07/19/2024 13:20:41 Plan of Treatment [...] RTHR 4 K 024 04/28/20 24 [facility], [address], [place], [address], 4 11:17:16 XR, hip + pelvis , unilat eral, 2 or 3 view - RM 221 1st PO RTHR 4 [facility] 024 04/15/20 24 [facility], [address], [address], [place], [address], 4 08:01:44 Medication Orders None record ed. [...] a4ajBk vP9nXo QUaueC m3YtLR FvZlgJ JJ8mAn HZtai3 0a1441 AC0Kqa 3WHWaO nKiQtr MwF INTERFACE [facility] [address], [place], [address], 04/15/2024 11:05:06 04/15/20 24 04/15/2024 XR, hip + pelvi s, unila teral , 2 or 3 view http:/ [email or web address] ?Encry pted=s hAaTro YD8dLq bEUv6g %2BXZw aYqtaq 0bqfl% 2Fg9IQ a4ajBk vP9nXo QUaueC m3YtLR FvZlgJ JJ8mAn HZtai3 3f1299 AC0Kqa 3WHWaO nKiQtr MwF INTERFACE [facility] [address], [place], [address], 04/15/2024 11:05:08 04/28/20 24 04/28/2024 XR, hip + pelvi s, unila teral , 2 or 3 view http:/ [email or web address] ?Encry pted=s hAaTro YD8dLq bEUv6g %2BXZw aYqtaq 0bqfl% 2Fg9IQ a4ajBk vP9nXo QUaueC m3YtLR FvZlgJ JJ8mAn HZtai3 2k2097 AC0Kqa HmFVKK vKiQtr MwF INTERFACE [facility] [address], [place], [address], 04/28/2024 13:52:31 04/28/20 24 04/28/2024 XR, hip + pelvi s, unila teral , 2 or 3 view http:/ [email or web address] ?Encry pted=s hAaTro YD8dLq bEUv6g %2BXZw aYqtaq 0bqfl% 2Fg9IQ a4ajBk vP9nXo QUaueC m3YtLR FvZlgJ JJ8mAn HZtai3 4f4121 AC0Kqa HmFVKK vKiQtr MwF INTERFACE [facility] [address], [place], [address], 04/28/2024 13:52:33 Result Notes Documentation Provider Name and Address Organization Details Recorded Time Xr, Hip + Pelvis, Unilateral, 2 Or 3 View : [email or web address] Encrypted=stXvTmzQO3jBbsZ Uv6g%2XXUyiHzluu2fxbv%2Fg 4QCr8zcPikW2dSeFRtlcQn8Lr EDArJaoXFL3jVmHVgqp06c338 1UB4Xyt6UATxEqCoNziQeI Not Available [facility] 04/15/2024 11:05: 07 Xr, Hip + Pelvis, Unilateral, 2 Or 3 View : [email or web address] Encrypted=cdFcLjqVL3xGzkI Uv6g%4NTKmkPysdz1hycv%2Fg 4YQk4mmZcdM7gSjOYhopWz3Di NPLlVfcUAG6wNnAGvaw62w062 3XD2Vfh1PQMnXySuKeeBwV Not Available [facility] 04/15/2024 11:05: 09 Xr, Hip + Pelvis, Unilateral, 2 Or 3 View : [email or web address] Encrypted=enQaTwqIF4xGjhJ Uv6g%3WEWybYcymw4ktus%2Fg 5LLd5bfWbqE2hXzWJudgPi1Ao HDDpXafUQP6fZnBNgxc79a541 2PM8BcjIpPIRSwHkTtiFfJ Not Available [facility] 04/28/2024 13:52: 31 Xr, Hip + Pelvis, Unilateral, 2 Or 3 View : [email or web address] Encrypted=spElWftPO1xLgbF Uv6g%5TZKvbFulla0duzq%2Fg 4MOk8jlWaiC1vGcBAfagLj3Gp MYZzCyzYME8qHnFOsem23c470 5NT8PdwLsKOPYsGzThwHaN Not Available [facility] 04/28/2024 13:52: 33 Medical Equipment None Reported. [...] Updated DateTime 07/19/2024 167.64 cm 26.5 kg/m2 79536.15 g Caitlin Gonzalesmitra [facility] 07/19/2024 12:56:26 Date Recorded Body height Body mass index (BMI) Body weight Provider Name and Address Organization Details Last Updated DateTime 04/15/2024 167.64 cm 26.5 kg/m2 51891.15 g SAMI SKYGUMORRO David [facility] 04/15/2024 10:43:49 Date Recorded Body height Provider Name an d Address Organization Details Last Updated DateTime 04/28/2024 167.64 cm SAMI SKYGUINPanchitoBREWER [facility] 04/28/2024 13:15:31 Social History Question Answer Notes LastModified by Organizat ion Details LastModified Time Tobacco Smoking Status Former Smoker SAMI STOUTPanchitoBREWERERNESTO gonzalez, [facility] 04/15/2024 10:44:03 When Did You Quit [...] Diagnosis SNOMED-CT Code Diagnosis ICD10 Code Diagnosis IMO Codes Diagnosis Note [id number] EDNA Mackay [address] [place] [address] 04/15/2024 10:34:43 05/05/2024 08:01:43 Postoperative visit 616415806 Z48.89 [id number] EDNA Mackay [address] [place] [address] 04/28/2024 13:05:27 05/18/2024 11:17:16 Postoperative visit 817847521 Z48.89 [id number] MD NIRAJ Thomas [address] [place] [address] 07/19/2024 12:52:57 07/28/2024 15:34:10 History of total replacement of right hip joint 1263995231 69354 Z96.641 [id number] Health Concerns Section Related Observation LastModified by Organization Detai ls LastModified Time None Recorded Concern Status LastModified by Organization Details LastModified Time None Recorded Advance Directives Directive None Recorded Payers Insurance Date Sequence Insurance Name Policy Number Policy Evans Covered Member ID Evans Member ID Guarantor Name 07/28/2024 2 [place] [id number] Mike Kemp [id number] Mike Kemp 07/19/2024 1 [place] [employer] Mike Murillo Kemp [id number] Mike Kemp 05/18/2024 [facility] Mike Justo [id number] Mike Justo Notes Date Note Type Note Provider Name [...] George. Patient is in rehab still at [facility]. Patient is taking aspirin BID for DVT prophylaxis. They are using a wheelchair and walker for ambulation assistance. No neurovascular changes. They have been compliant with total hip precautions as directed. Overall happy with results thus far. Primarily utilizing tylenol and tramadol for pain control.Diagnostic Imaginv x-rays of the right hip were ordered, obtained, and reviewed today at [facility] demonstrates well maintained alignment of the prosthetic [...] concerns were addressed and answered. Speech recognition principal account clerk software was used to create portions of this document. An attempt at proofreading has been made to minimize errors. Please call for corrections. Nolvia Murray PA-C [address] [place] [address] [address] [facility], [place], [address], [facility] 04/15/2024 11:31:35 04/28/2024 text/html [...] were ordered, obtained, and reviewed today at [facility] demonstrates well maintained alignment of the prosthetic [...] concerns were addressed and answered. Speech recognition principal account clerk software was used to create portions of this document. An attempt at proofreading has been made to minimize errors. Please call for corrections. Nolvia Murray PA-C [address] [facility] [address], [place], [address], [facility] 04/28/2024 14:05:08
== END 2025-03-28 15:11 | disposition home or self-care (01) ==
LOC: HO.HPS 14:17
PROVIDERS: PCP Physician Assistant Medical; Visit Provider Internal Medicine
DX: J44.9 Chronic obstructive pulmonary disease, unspecified (principal); R05.9 Cough, unspecified; J42 Unspecified chronic bronchitis; J47.9 Bronchiectasis, uncomplicated
CPT/HCPCS: 99214

== ENCOUNTER → 2025-03-28 14:16 | Outpatient (BNVA) | payer MEDICARE, SELFPAY | PROVIDERS: PCP Physician Assistant Medical; Visit Provider Internal Medicine | DX: J47.9 Bronchiectasis, uncomplicated (principal); R05.9 Cough, unspecified; Z87.891 Personal history of nicotine dependence | CPT/HCPCS: 99212 ==

== ENCOUNTER 2025-04-11 14:16 | Outpatient (AMB) | payer MEDICARE, SELFPAY ==
[2025-04-11 14:19] VITALS: BP 120/56; PULSE 63; BMI 25.2
--- NOTE | 2025-04-11 14:19 | MHC.OFFVIS ---
Vital Signs 04/11/25 14:19 Height 5 ft 5 in Weight 151 lb 3.794 oz BMI 25.2 BP 120/56 L Blood Pressure Location Lt brachial Position Sitting Pulse 63 Pulse Source Pulse Oximeter Intake Visit Reasons: 3 mth f/up w/ medtronic ck Accompanied by: spouse Allergies latex Allergy (Uncoded 03/28/25 15:03) Rash Medication List - Last Reconciled 04/11/25 by Skyler Ross MD albuterol sulfate 90 mcg/actuation 2 puffs inhalation Q4H PRN amlodipine (Norvasc) 5 mg PO DAILY aspirin 81 mg PO DAILY atorvastatin 40 mg PO DAILY fluoxetine 20 mg PO DAILY fluticasone furoate-vilanterol 200-25 mcg/dose (Breo Ellipta) 1 ea inhalation DAILY latanoprost 0.005% 1 drp ophthalmic (eye) BEDTIME HPI Comments Details: Mike returns for follow-up. In the past, seen at [facility] but has since switched his care to us. He has had a pacemaker for a long time. No known coronary disease myocardial infarction or cardiomyopathy. Listed to have COPD. He has symptoms related to COPD like shortness of breath but nothing clear-cut from cardiac. Overall, seems to be getting along okay. Frailty related to age. It seems he had a hospitalization for fall few months back. At that time, detected to have pericardial effusion. [facility] Medical History (Updated 03/28/25 @ 16:33 by Caitlin Cavanaugh MD) Bronchiectasis Chronic bronchitis Headache Facial bruising Thyroid nodule Atrial tachycardia, paroxysmal Peripheral edema Chronic anemia New onset type 2 diabetes mellitus Overweight with body mass index (BMI) of 25 to 25.9 in adult Basal cell carcinoma of ear Glucose intolerance Sciatica Lumbar herniated disc Osteoarthritis History of basal cell carcinoma Mucopurulent chronic bronchitis Obstructive airway disease Mild cognitive impairment Mild hypercholesterolemia Coronary artery disease SSS (sick sinus syndrome) Cough COPD (chronic obstructive pulmonary disease) Prostate cancer Eczema Gallstones Nocturia Kidney cysts Kidney stones Hyperlipidemia HTN (hypertension) Prostate cancer Surgical History History of colonoscopy History of cholecystectomy History of herniorrhaphy History of right hip replacement History of prostatectomy Family History Father No problems noted. Mother No problems noted. Social History Household Members: Spouse Housing: House Do you presently have visiting nurse or other home services: No Alcohol intake: current Alcohol intake frequency: holidays/special occasions only Patient Tobacco Use Status: Former Tobacco user Years Smoked: 30 years service: Yes Current occupational status: retired Cognitive needs: Yes (cane) Hearing needs: No Vision needs: Yes (rx glasses) Review of Systems Const Denies daytime sleepiness, Denies difficulty sleeping, Denies snoring, Denies stops breathing during sleep and Denies weakness Card Denies chest pain, Denies rapid heart rate, Denies irregular heart rhythm, Denies claudication, Denies leg edema, Denies lightheadedness, Denies palpitations, Denies dyspnea, Denies dyspnea on exertion, Denies orthopnea, Denies paroxysmal nocturnal dyspnea and Denies slow heart rate Resp Denies cough, Denies dyspnea, Denies dyspnea on exertion and Denies snoring GI Reports no additional complaints, Denies hematochezia, Denies change in stool character and Denies dyspepsia Musc Denies abnormal gait, Denies muscle weakness and Denies numbness Neuro Denies abnormal gait, Denies numbness and Denies weakness Endo Denies palpitations Physical Exam Vital Signs: Last Vital Signs Pulse 63 04/11/25 14:19 BP 120/56 L 04/11/25 14:19 BMI result Body Mass Index 25.2 Const General: comfortable and no acute distress Orientation/consciousness: patient oriented x3 HEENT Other: Unremarkable Head: Yes normal to inspection Neck Neck: Yes normal visual inspection Chest Chest palpation & inspection: normal inspection of the chest Resp Auscultation: crackles Cardio Palpation: normal PMI Heart sounds: S1 normal heart sound present, S2 normal heart sound present, no gallops, no murmurs and no rubs GI Palpation (GI): Soft to palpation Back/Spine/Pelvis Other: unremarkable Skin General skin exam: no rashes or lesions noted Neuro General: patient oriented x3 Extrem General: Yes normal to inspection Psych Mental Status: mental status grossly normal Office Procedures Cardiac Device Check Cardiac Device Check Details: Pacemaker interrogated today. Dual-chamber device, programmed DDDR. Battery status 6-8 months. Atrial pacing 41.6%. Ventricular pacing 99.7%. No episodes. Overall, normal device function. [id number] Cardiac Device Check, pacemaker dual lead Procedure code (CPT) selection complete Assessment & Plan Assessment & Plan (1) Pacemaker: Code(s): Z95.0 - Presence of cardiac pacemaker Category: Medical (2) SSS (sick sinus syndrome): Comment: s/p PPP Code(s): I49.5 - Sick sinus syndrome Category: Medical (3) Pericardial effusion: Code(s): I31.39 - Other pericardial effusion (noninflammatory) Category: Medical Plan Pacemaker is functioning normally. Expected battery life around 6 months, possibly a bit longer. Hence we will recheck the pacemaker in about 3 months. He does not have remote monitoring in place. Requested him to set it up if able. With regard to the pericardial effusion, doubt any hemodynamic significance. We can recheck that. Orders: Orders [employer] Today I31.39 - Other pericardial effusion (noninflammatory) Coding Level of Care Code Est Pt Level 3 (45676) Diagnoses Pacemaker Z95.0 SSS (sick sinus syndrome) I49.5 Pericardial effusion I31.39 CPT Codes Cardiac Device Check - Cardiac Device 2: [id number] Cardiac Device Check, pacemaker dual lead ([id number])
--- OUTSIDE RECORDS SUMMARY | 2025-04-11 17:16 | XMS_ITS ---
Author Name [facility] Organization Unknown Care Team Organization Name Specialty Phone Email Start Date End Da te [facility] 04/04/2025 [facility] 04/04/2025
== END 2025-04-11 14:57 | disposition home or self-care (01) ==
LOC: HO.HCS 14:17
PROVIDERS: PCP Internal Medicine; Visit Provider Internal Medicine
DX: I49.5 Sick sinus syndrome (principal); Z95.0 Presence of cardiac pacemaker; I31.39 Other pericardial effusion (noninflammatory)
CPT/HCPCS: 93280; 99213

== ENCOUNTER → 2025-04-11 14:16 | Outpatient (BNVA) | payer MEDICARE, SELFPAY | PROVIDERS: PCP Internal Medicine; Visit Provider Internal Medicine | DX: Z45.010 Encounter for checking and testing of cardiac pacemaker pulse generator [battery] (principal); I49.5 Sick sinus syndrome; I31.39 Other pericardial effusion (noninflammatory) | CPT/HCPCS: 93280; 99212 ==

== ENCOUNTER 2025-05-10 12:22 | Outpatient (REF) | payer MEDICARE, SELFPAY ==
--- NOTE | ~2025-05-10 | US_ITS ---
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 COMPARISON: Correlated to CT chest dated March 23, 2025. TECHNIQUE: Linear transducer grayscale and color Doppler examination with attention to the region of the thyroid. FINDINGS: SIZE: Measurements of the thyroid lobes and nodules are given in sagittal, anteroposterior and transverse dimensions respectively. Right Thyroid Lobe: 3.8 x 1.3 x 1.3 cm, volume 3.2 mL. Parenchyma: The gland echotexture is heterogeneous. Thyroid vascularity is normal. Left Thyroid Lobe: 3.8 x 1.9 x 1.4 cm, volume 5.0 mL. Parenchyma: The gland echotexture is heterogeneous. Thyroid vascularity is normal. Isthmus: 0.2 cm in maximum AP dimension. Estimated total number of nodules greater than or equal to 1 cm: 0. Steno Pool Supervisor nodules are described as follows: 1. Location: Lower pole left lobe. Size: 0.7 x 0.5 x 0.7 cm, volume 0.12 mL. Nodule characteristics: Composition: Cystic(0). Echogenicity: Anechoic (0). Shape: Not taller than wide (0). Margins: Smooth (0). Echogenic Foci: None (0). ACR TI-RADS total points: 0 ACR TI-RADS category: 1 2. Location: Lower pole left lobe. Size: 0.4 x 0.4 x 0.3 cm, volume 0.03 mL. Nodule characteristics: Composition: Cystic(0). Echogenicity: Anechoic (0). Shape: Not taller than wide (0). Margins: Smooth (0). Echogenic Foci: None (0). ACR TI-RADS total points: 0 ACR TI-RADS category: 1 3. Location: Lower pole left lobe. Size: 0.4 x 0.6 x 0.3 cm, volume 0.04 mL. Nodule characteristics: Composition: Mixed cystic and solid (1). Echogenicity: Undetermined (1) Shape: Taller than wide (3). Margins: Smooth (0). Echogenic Foci: Punctate echogenic foci (3). ACR TI-RADS total points: 8 ACR TI-RADS category: 5 NODES: No lymphadenopathy is seen in the tissue surrounding the thyroid gland. US/US thyroid IMPRESSION: ACR TI-RADS Category 5. ACR TI-RADS RECOMMENDATION REFERENCE: Ultrasound-guided fine-needle aspiration, followup ultrasound, no further follow up. * TR1 (0 point) and TR2 (2 points): No FNA or follow up. * TR3 (3 points): FNA if more than or equal to 2.5 cm in maximum dimension, followup ultrasound in 1, 3 and 5 years if 1.5 to 2.4 cm in maximum dimension. * TR4 (4-6 points): FNA if more than or equal to 1.5 cm in maximum dimension, followup ultrasound in 1, 2, 3 and 5 years if 1 to 1.4 cm in maximum dimension. * TR5 (more than or equal to 7 points): FNA if more than or equal to 1 cm in maximum dimension, followup ultrasound every year for 5 years if 0.5 to 0.9 cm in maximum dimension. * TR3, TR4 or TR5 nodules that are below the size threshold for followup receive no follow up. Electronically signed by: Dontrell Coates MD 05/10/2025 01:08 PM MARIA C MARTINS
--- OUTSIDE RECORDS SUMMARY | 2025-05-10 15:03 | XMS_ITS | Data Portability ---
Author Organization [facility], [facility] Address [address] [place] [address] Care Team Providers Care Electrical Mechanical Technician Name Role Phone JOYCELYN LEÓN Primary [...] of their questions today in the office. [facility] speech recognition diving fisher software was used to create portions of this document. An attempt at proofreading has been made to minimize errors. Please call for corrections. [email or web address] Not available 07/19/2024 13:20:41 Plan of Treatment [...] RTHR 4 K 024 04/28/20 24 rmessenger [facility], [address], [place], [address], 4 11:17:16 XR, hip + pelvis , unilat eral, 2 or 3 view - RM [address] RTHR 4 [facility] 024 04/15/20 24 rmessenger [facility]nie Office, [address], [address], [place], [address], 4 08:01:44 Medication Orders None record ed. [...] a4ajBk vP9nXo QUaueC m3YtLR FvZlgJ JJ8mAn HZtai3 [id number] AC0Kqa 3WHWaO nKiQtr MwF INTERFACE [facility] [address], [place], [address], 04/15/2024 11:05:06 04/15/20 24 04/15/2024 XR, hip + pelvi s, unila teral , 2 or 3 view [email or web address]:/ [email or web address] ?Encry pted=s hAaTro YD8dLq bEUv6g %2BXZw aYqtaq 0bqfl% 2Fg9IQ a4ajBk vP9nXo QUaueC m3YtLR FvZlgJ JJ8mAn HZtai3 3r3561 AC0Kqa 3WHWaO nKiQtr MwF INTERFACE [facility] [address], [place], [address], 04/15/2024 11:05:08 04/28/20 24 04/28/2024 XR, hip + pelvi s, unila teral , 2 or 3 view http:/ [email or web address] ?Encry pted=s hAaTro YD8dLq bEUv6g %2BXZw aYqtaq 0bqfl% 2Fg9IQ a4ajBk vP9nXo QUaueC m3YtLR FvZlgJ JJ8mAn HZtai3 6o7301 AC0Kqa HmFVKK vKiQtr MwF INTERFACE [facility] [address], [place], [address], 04/28/2024 13:52:31 04/28/20 24 04/28/2024 XR, hip + pelvi s, unila teral , 2 or 3 view http:/ [email or web address] ?Encry pted=s hAaTro YD8dLq bEUv6g %2BXZw aYqtaq 0bqfl% 2Fg9IQ a4ajBk vP9nXo QUaueC m3YtLR FvZlgJ JJ8mAn HZtai3 4m8186 AC0Kqa HmFVKK vKiQtr MwF INTERFACE [facility] [address], [place], [address], 04/28/2024 13:52:33 Result Notes Documentation Provider Name and Address Organization Details Recorded Time Xr, Hip + Pelvis, Unilateral, 2 Or 3 View : [email or web address] Encrypted=utIzRrnTK2eBfmR Uv6g%9MOCpnRxflp7vave%2Fg 3XBk5mmRenL7aIoQWtbmWj5Fw JPRiXfzOQP3pCsKPxqd54k459 1WU4Gfc9YUAtItLbOasKxD Not Available [facility] 04/15/2024 11:05: 07 Xr, Hip + Pelvis, Unilateral, 2 Or 3 View : [email or web address] Encrypted=mrZhGqgQN5yOwjF Uv6g%8CQYybHnndu9qltd%2Fg 8YQm4mkLygE6iQoUQdehZk9Iy LVGjTbiYKJ4yZpTAcdv47c247 7CU6Gky6BOGkElOgJqnNuQ Not Available [facility] 04/15/2024 11:05: 09 Xr, Hip + Pelvis, Unilateral, 2 Or 3 View : [email or web address] Encrypted=nxMiSqvVR4pYvqD Uv6g%8TIYvxKzarx0pnhy%2Fg 3KZx5ldZdiW2dAyWQirlTh9Fw NCLnEusHBY1lOlVSfgr38j872 5OX2SejFqMRAPiDcSjgZcI Not Available [facility] 04/28/2024 13:52: 31 Xr, Hip + Pelvis, Unilateral, 2 Or 3 View : [email or web address] Encrypted=ceMtEhpBM6sHsqA Uv6g%4RPZabNcwow9vyne%2Fg 1TIy9mdTiqS3yVwZMuqxHv1Ug TWEqRtgFJK6vPvVYcfk68y675 8YR1JlxQuJLUOeGnLaiHlA Not Available [facility] 04/28/2024 13:52: 33 Medical Equipment None Reported. [...] Updated DateTime 07/19/2024 167.64 cm 26.5 kg/m2 10252.15 g Caitlin Gonzalesmitra [facility] 07/19/2024 12:56:26 Date Recorded Body height Body mass index (BMI) Body weight Provider Name and Address Organization Details Last Updated DateTime 04/15/2024 167.64 cm 26.5 kg/m2 74567.15 g SAMI SKYGUMORRO David [facility] 04/15/2024 10:43:49 Date Recorded Body height Provider Name an d Address Organization Details Last Updated DateTime 04/28/2024 167.64 cm SAMI SKYGUINPanchitoBREWER [facility] 04/28/2024 13:15:31 Social History Question Answer Notes LastModified by Organizat ion Details LastModified Time Tobacco Smoking Status Former Smoker SAMI STOUTPanchitoBREWERERNESTO gonzalez, [facility] 04/15/2024 10:44:03 When Did You [...] ICD10 Code Diagnosis IMO Codes Diagnosis Note [id number] EDNA Mackay [address] [place] [address] 04/15/2024 10:34:43 05/05/2024 08:01:43 Postoperative visit 305439958 Z48.89 [id number] EDNA Mackay [address] [place] [address] 04/28/2024 13:05:27 05/18/2024 11:17:16 Postoperative visit 207918990 Z48.89 [id number] MD NIRAJ Thomas [address] [place] [address] 07/19/2024 12:52:57 07/28/2024 15:34:10 History of total replacement of right hip joint 0849503254 64277 Z96.641 [id number] Health Concerns Section Related Observation LastModified by Organization Detai ls LastModified Time None Recorded Concern Status LastModified by Organization Details LastModified Time None Recorded Advance Directives Directive None Recorded Payers Insurance Date Sequence Insurance Name Policy Number Policy Evans Covered Member ID Evans Member ID Guarantor Name 07/28/2024 2 [place] [id number] Mike Kemp [id number] Mike Kemp 07/19/2024 1 [place] [employer] Mike Murillo Kemp [id number] Mike Kemp 05/18/2024 [facility] Mike Justo [id number] Mike Justo Notes Date Note Type [...] George. Patient is in rehab still at [facility]. Patient is taking aspirin BID for DVT prophylaxis. They are using a wheelchair and walker for ambulation assistance. No neurovascular changes. They have been compliant with total hip precautions as directed. Overall happy with results thus far. Primarily utilizing tylenol and tramadol for pain control.Diagnostic Imaginv x-rays of the right hip were ordered, obtained, and reviewed today at [facility] demonstrates well maintained alignment of the [...] concerns were addressed and answered. Speech recognition diving fisher software was used to create portions of this document. An attempt at proofreading has been made to minimize errors. Please call for corrections. Nolvia Murray PA-C [address] [place] [address] [address] [facility] [place], [place], [address], [facility] 04/15/2024 11:31:35 04/28/2024 text/html [...] were ordered, obtained, and reviewed today at [facility] demonstrates well maintained alignment of the [...] concerns were addressed and answered. Speech recognition diving fisher software was used to create portions of this document. An attempt at proofreading has been made to minimize errors. Please call for corrections. Nolvia Murray PA-C [address] [facility] [address], [place], [address], [facility] 04/28/2024 14:05:08
== END 2025-05-10 12:23 | disposition home or self-care (01) ==
LOC: HO.US 12:22
PROVIDERS: PCP Internal Medicine; Visit Provider Physician Assistant Medical
DX: E04.1 Nontoxic single thyroid nodule (principal)
CPT/HCPCS: 76536

== ENCOUNTER → 2025-05-10 12:25 | Outpatient (BNV) | payer MEDICARE, SELFPAY | PROVIDERS: PCP Internal Medicine; Visit Provider Radiology Diagnostic Radiology | DX: E04.1 Nontoxic single thyroid nodule (principal) | CPT/HCPCS: 76536 ==